=== PATIENT | female | born 1980 | race Caucasian/White ===

== ENCOUNTER 2020-02-20 16:12 | Emergency (ER) | payer OTHER, SELFPAY ==
[2020-02-20 17:40] VITALS: BP 129/72; PULSE 87; RESP 20; O2SAT 99; BMI 34.4
--- NOTE | 2020-02-20 18:05 | ED_ITS ---
HPI - Skin/Abscess/Foreign Bdy General Chief complaint: Skin/Abscess/Foreign Body Stated complaint: CELLULITUS Time Seen by Provider: 02/20/20 16:20 Source: patient Mode of arrival: ambulatory Limitations: no limitations History of Present Illness HPI narrative: states was wearing foot because rash/irritation to the top of the foot now with mild redness. Up-to-date on vaccination. no injury. She is a diabetic and POC was 129 prior to arrival. MD complaint: rash Onset (ago): day(s) (2 days ) Tetanus up to date: yes Location: LUE (dorsal foot ) and L foot Severity: mild Severity scale (1-10): 5 Quality: pruritic Pain Consistency: constant Relieving factors: none Exacerbating factors: none Context: other ( states was wearing shoes that caused irritation to the top of the foot now has redness) Associated symptoms: denies other symptoms Treatments prior to arrival: none Related Data Previous Rx's Medication Instructions Recorded doxycycline monohydrate 100 mg PO BID 10 Days #20 cap 02/20/20 mupirocin 1 applic TOPICAL BID #15 g 02/20/20 Allergies Allergy/AdvReac Type Severity Reaction Status Date / Time amoxicillin [Amoxicillin] Allergy Mild HIVES Unverified 01/15/20 16:27 baclofen [Baclofen] Allergy Unknown UNKNOWN Unverified 01/15/20 16:27 bupropion [From Wellbutrin] Allergy Unknown UNKNOWN Unverified 01/15/20 16:27 diphenhydramine Allergy Unknown UNKNOWN Unverified 01/15/20 16:27 [From Benadryl] divalproex sodium Allergy Unknown UNKNOWN Unverified 01/15/20 16:27 [From Depakote] fluoxetine [From Prozac] Allergy Unknown UNKNOWN Unverified 01/15/20 16:27 Penicillins Allergy Unknown UNKNOWN Unverified 01/15/20 16:27 Review of Systems Review of Systems: Constitutional: No Weight loss, No Fever, No Chills, No Night Sweats, No Fatigue, No Malaise ENT/Mouth: No Hearing loss, No Ear Pain, No Nasal Congestion, No Sinus Pain, No Hoarseness, No sore throat, No Rhinorrhea, No Swallowing Difficulty Eyes: No Eye Pain, No Swelling, No Redness, No Foreign Body, No Discharge, No Vision Changes Cardiovascular: No Chest Pain, No SOB, No Dyspnea on Exertion, No Orthopnea, No Edema, No Palpitations Respiratory: No Cough, No Sputum, No Wheezing, No Dyspnea Gastrointestinal: No Nausea, No Vomitin Genitourinary: no irregular bleeding, No Dysuria, No Urinary Frequency Musculoskeletal: No joint pain, No Myalgias, No Joint Swelling Skin: as noted in HPI Neuro: No Weakness, No Numbness, No Paresthesias, No Loss of Consciousness, No Dizziness, No Headache Psych: No Social Issues Heme/Lymph: No Bruising, No Bleeding,No Lymphadenopathy Endocrine: No Polyuria, No Polydipsia, No Temperature Intolerance Yes all other systems are reviewed and are negative [facility] Past Medical History Attestation statement: The following information was validated with the patient. Medical History (Updated 02/20/20 @ 18:12 by Henri Pulido NP) Diabetes Surgical History (Updated 02/20/20 @ 17:42 by Roseanne Hercules) Status post VNS (vagus nerve stimulator) placement Social History Social History Alcohol intake: never Smoking Status: Current every day smoker Smoked in Last 30 Days: No Use of substances other than those prescribed or required for medical reasons: No Advance Directives: No Advance Directives Information Provided: Yes Physical Exam Vital Signs: Vital Signs: Vital Signs Pulse Resp BP Pulse Ox 02/20/20 17:40 87 20 129/72 99 Body Mass Index 34.4 Reviewed Const: General: cooperative and healthy appearing; No acute distress or intoxicated appearing Nutritional Appearance: average body habitus Orientation/consciousness: patient oriented x3 HENMT: Head: Yes normal to inspection Ears: hearing grossly normal bilaterally Chest: Chest palpation & inspection: normal inspection of the chest Resp: Effort & Inspection: normal respiratory effort Cardio: Jugular venous distension: no JVD : General: Yes no CVA tenderness Back/Spine/Pelvis: Back: no CVA tenderness Skin: Other: Dorsal of the foot just proximal to the webbing of the great toe there is some dry scaly skin with slight erythema extending to the midfoot. No induration, discharge. General skin exam: no rashes or lesions noted Neuro: General: patient oriented x3 Extrem: General: Yes normal to inspection MDM - Skin/Abscess/Foreign Bdy Differential Diagnosis Differential diagnosis: Likely abscess of skin or subcutaneous tissue, viral exanthem, urticaria, eczema, impetigo and contact dermatitis Discharge Plan Discharge Clinical Impression: Cellulitis Qualifiers: Site of cellulitis: unspecified site Qualified Code(s): L03.90 - Cellulitis, unspecified Contact dermatitis Qualifiers: Contact dermatitis type: unspecified Contact dermatitis trigger: unspecified trigger Qualified Code(s): L25.9 - Unspecified contact dermatitis, unspecified cause Patient Disposition: Home, Self-Care Instructions: Cellulitis (ED) Additional Instructions: Warm compress Taking medication prescribed Return if any concerns or worse symptoms otherwise follow up with her primary care doctor on Sunday for recheck Thank you Prescriptions: New doxycycline monohydrate 100 mg capsule 100 mg PO BID 10 Days Qty: 20 RF: 0 mupirocin 2 % ointment 1 applic topical BID Qty: 15 RF: 0 Referrals: ED Physician,Generic [Emergency Provider] - 3 days ( your primary care doctor for recheck or the emergency room)
== END 2020-02-20 19:20 | disposition home or self-care (01) ==
PROVIDERS: Emergency Provider Emergency Medicine
DX: L03.116 Cellulitis of left lower limb (principal); E11.9 Type 2 diabetes mellitus without complications; F17.200 Nicotine dependence, unspecified, uncomplicated
CPT/HCPCS: 99283; 99284

== ENCOUNTER 2021-11-25 21:23 | Inpatient (IN) | payer OTHER, SELFPAY ==
--- NOTE | ~2021-11-25 | XR_ITS ---
EXAMINATION:XR foot RT min 3V, XR ankle RT min 3V VIEWS ACQUIRED: Frontal lateral and oblique CLINICAL INFORMATION: Reason for Exam pt had fall on unit, foot contorted COMPARISON: None available at the time of this dictation. FINDINGS: There is no evidence of acute fracture or dislocation. Intertarsal, tarsometatarsal, metatarsophalangeal and interphalangeal joints are intact. Surrounding soft tissues is normal. , Ankle mortise is preserved. Talar dome and tibial plafonds are intact. Medial and lateral malleoli and included distal tibia and fibula are intact. XR/XR ankle RT min 3V IMPRESSION: No significant osseous changes, no evidence of acute fracture or dislocation.
--- NOTE | ~2021-11-25 | XR_ITS ---
EXAMINATION:XR foot RT min 3V, XR ankle RT min 3V VIEWS ACQUIRED: Frontal lateral and oblique CLINICAL INFORMATION: Reason for Exam pt had fall on unit, foot contorted COMPARISON: None available at the time of this dictation. FINDINGS: There is no evidence of acute fracture or dislocation. Intertarsal, tarsometatarsal, metatarsophalangeal and interphalangeal joints are intact. Surrounding soft tissues is normal. , Ankle mortise is preserved. Talar dome and tibial plafonds are intact. Medial and lateral malleoli and included distal tibia and fibula are intact. XR/XR foot RT min 3V IMPRESSION: No significant osseous changes, no evidence of acute fracture or dislocation.
[2021-11-25 21:39] VITALS: BP 136/71; PULSE 85; RESP 16; TEMP 36.2; O2SAT 97; BMI 31.8
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
[2021-11-25 22:00] LABS: Glucose, Whole Blood 114 mg/dL (60-115)
[2021-11-25 22:20] LABS: COVID-19 Test Negative (Negative); IDNOW Serial# 16C4AD1C
[2021-11-25 22:49] LABS: MANUAL DIFF FLAG NO
[2021-11-25 22:51] LABS: Basophils Percent Auto 0.3 % (0-2); Eosinophils Absolute Auto 0.2 X10*3/uL (0.0-0.4); Eosinophils Percent Auto 2.6 % (0-4); Hematocrit 38.8 % (37.0-47.0); Hemoglobin 12.2 g/dl (12.0-16.0); Imm Gran Abs Auto 0.03 X10*3/uL (0.00-0.03); Imm Gran Pct Auto 0.3 % (0.0-0.4); Lymphocytes Absolute Auto 1.5 X10*3/uL (1.2-4.9); Lymphocytes Percent Auto 16.2 % (20-40); Mean Corpuscular HGB Conc 31.4 g/dl (31.0-35.0); Mean Corpuscular Hemoglobin 25.6 pg (27.0-33.0); Mean Corpuscular Volume 81.3 fL (80.0-98.0); Mean Platelet Volume 11.3 fL (9.4-12.3); Monocytes Absolute Auto 0.7 X10*3/uL (0.1-1.2); Monocytes Percent Auto 7.7 % (2-11); Neutrophils Absolute Auto 6.9 x10*3/uL (2.0-8.3); Neutrophils Percent Auto 72.9 % (45-73); Platelet Count 230 X10*3/uL (160-400); Red Blood Count 4.77 X10*6/uL (4.20-5.50); Red Cell Distribution Width 15.7 % (11.0-16.0); White Blood Count 9.4 X10*3/uL (4.8-10.8)
[2021-11-25 23:42] LABS: Alanine Aminotransferase 17 U/L (0-31); Alkaline Phosphatase 82 U/L (39-117); Anion Gap 15 (12-20); Aspartate Amino Transferase 17 U/L (5-31); Bilirubin Total < 0.2 mg/dL (0.0-1.0); Blood Urea Nitrogen 11 mg/dL (9-16); Calcium 8.5 mg/dL (8.4-10.2); Carbon Dioxide 20 mmol/L (22-29); Chloride 109 mmol/L (96-108); Creatinine Clr Calc Pharmacy 111.9; Estimated Glomerular Filt Rate > 60; Ethanol < 10 mg/dL; Glucose Random 129 mg/dL (60-115); Potassium 3.9 mmol/L (3.3-5.1); Sodium 140 mmol/L (135-145); Total Protein 6.2 g/dL (6.5-8.0)
[2021-11-26 06:40] VITALS: RESP 17
--- NOTE | 2021-11-26 06:42 | PC.NURSE ---
Patient told this technical document writer that she do not have to used the bathroom to provide a urine sample and Patient refused Vitals at this time RN was notify
--- NOTE | 2021-11-26 06:46 | PC.NURSE ---
Patient slept though the night, no distress observed/reported, med rec completed/pending provider's approval, patient evaluated by [facility] in the community, disposition section 12 inpatient bed search, behavior isolative/non concerning, pending urine sample, will continue to monitor.
--- NOTE | 2021-11-26 07:03 | PC.NURSE ---
patient appears to remain asleep respirations are even and unlabored patient appears in no distress
[2021-11-26 10:19] LABS: Appearance Urine HAZY; Color Urine YELLOW; Glucose Urine UA NEG (NEG); Leukocyte Esterase Urine NEG (NEG); Nitrite Urine NEG (NEG); PH 6.5 (5.0-8.0); Specific Gravity - Urine 1.025 (1.005-1.025); Urine Blood 1+ (NEG); Urine Ketones NEG (NEG); Urine Protein NEG (NEG-TRACE)
[2021-11-26 10:22] LABS: UPreg QC Valid YES; Urine Pregnancy NEGATIVE (NEGATIVE)
[2021-11-26 10:34] LABS: Bacteria Urine 1+ /LPF; Mucus Urine 2+ /LPF; Squamous Epithelial Cell Urine 1+ /LPF; WBC Urine 0-2 /HPF (0-4)
[2021-11-26 10:37] LABS: Amphetamine Screen Urine Not Detected (Not Detect); Barbiturates, Urine Not Detected (Not Detect); Benzodiazepines Screen Urine Not Detected (Not Detect); Cannabinoid Screen Urine Not Detected (Not Detect); Cocaine Screen Urine Not Detected (Not Detect); Fentanyl, urine Not Detected (Not Detect); Opiate Screen Urine Not Detected (Not Detect); Phencyclidine Screen Urine Not Detected (Not Detect)
[2021-11-26 13:39] VITALS: BP 116/57; PULSE 90; RESP 16; TEMP 37.1
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
[2021-11-26 21:34] VITALS: BP 112/60; PULSE 72; TEMP 36.7; O2SAT 97
[2021-11-27 08:39] LABS: Estimated Average Glucose 140 mg/dL; Hemoglobin A1c % 6.5 %
[2021-11-27 08:45] VITALS: BP 130/70; PULSE 78; RESP 18; TEMP 36.4; O2SAT 99
[2021-11-27 08:47] LABS: Cholesterol 126 mg/dL; HDL Cholesterol 33 mg/dL; LDL Cholesterol Calculated 75 mg/dl; Magnesium 2.2 mg/dL (1.6-2.6); Triglycerides 91 mg/dL
[2021-11-27] MEDS: Methylphenidate HCl 10 MG TABLET PO ×2 (08:49→12:58)
[2021-11-27] MEDS: Multivitamin TABLET 1 TAB PO (08:49)
[2021-11-27] MEDS: Sertraline HCL 100 MG TABLET PO (08:50)
[2021-11-27] MEDS: Atorvastatin Calcium 40 MG TABLET PO (08:50)
[2021-11-27] MEDS: chlorproMAZINE HCl 100 MG TABLET PO ×2 (08:50→15:23)
[2021-11-27] MEDS: Aspirin Enteric Coated 81 MG TABLET.DR PO (08:50)
[2021-11-27] MEDS: busPIRone HCl 5 MG TABLET 7.5 MG PO ×2 (08:50→21:03)
[2021-11-27] MEDS: Omeprazole 20 MG CAPSULE.DR PO (08:50)
[2021-11-27] MEDS: metFORMIN HCl 1,000 MG TABLET 1000 MG PO ×2 (08:50→21:02)
[2021-11-27] MEDS: Ferrous Sulfate 324 MG TABLET.DR PO (08:51)
[2021-11-27 09:08] LABS: Free T4 (Free Thyroxine) 0.91 ng/dL (0.71-1.85); Thyroid Stimulating Hormone 0.43 uIU/mL (0.32-4.0)
--- NOTE | 2021-11-27 12:34 | P.PNPSI_ITS ---
Subjective Subjective Date of Service: 11/27/21 Reason For Visit: Depression, SI Subjective Notes: Conditional Voluntary Interim History: The nursing staff reported the patient refused to take her medications last night but later on she agreed to take her medications in the morning. On interview the patient stated that she wants to take her meds and get better still very dysphoric, internally preoccupied with auditory hallucinations but able to contract for safety in the unit. Mental Status Exam Mental Status Exam Patient Appearance: Well Grooomed Patient Orientation: Person and Situation Level of Consciousness: Awake and Appropriate Patient Behavior: Cooperative Mood Description: Withdrawn Affect Description: Constricted Patient Cognition Impaired: Yes Ability to Follow Directions: Good Speech Pattern: Clear Hallucinations: Auditory Delusions: Paranoid Ideation Thought Process: Distracted and Slowed Thinking Thought Content: positive for Disoriented Judgement: Poor Diagnostics Vital Signs (24Hr): Vital Signs - 24 hr 11/26/21 13:39 11/26/21 21:34 11/27/21 08:45 Temperature 98.8 F 98.1 F 97.6 F Pulse Rate 90 72 78 Respiratory Rate 16 18 Blood Pressure 116/57 L 112/60 130/70 Pulse Oximetry 97 99 Oxygen Delivery Method Room Air Room Air Room Air Oxygen Flow Rate 97 BMI result Body Mass Index 31.8 Labs Results: 11/25/21 22:44 11/25/21 22:44 Labs: Laboratory Results - last 48 hr 11/25/21 11/25/21 11/25/21 21:42 21:57 22:44 WBC 9.4 RBC 4.77 Hgb 12.2 Hct 38.8 MCV 81.3 MCH 25.6 L MCHC 31.4 RDW 15.7 Plt Count 230 MPV 11.3 Immature Gran % (Auto) 0.3 Neut % (Auto) 72.9 Lymph % (Auto) 16.2 L Edmunds % (Auto) 7.7 Eos % (Auto) 2.6 Baso % (Auto) 0.3 Lymph # (Auto) 1.5 Edmunds # (Auto) 0.7 Eos # (Auto) 0.2 Baso # (Auto) 0.0 Abs Immat Gran (auto) 0.03 Absolute Neuts (auto) 6.9 Absolute Nucleated RBC 0.000 Nucleated RBC % (auto) 0.0 Sodium Potassium Chloride Carbon Dioxide Anion Gap BUN Creatinine Estim Creat Clear Calc Estimated GFR POC Glucose 114 Random Glucose Estimat Average Glucose Hemoglobin A1c % Calcium Magnesium Total Bilirubin AST ALT Alkaline Phosphatase Total Protein Albumin Triglycerides Cholesterol LDL Cholesterol, Calc HDL Cholesterol TSH Free T4 Urine Color Urine Appearance Urine pH Ur Specific Aulander Urine Protein Urine Glucose (UA) Urine Ketones Urine Blood Urine Nitrite Ur Leukocyte Esterase Urine RBC Urine WBC Ur Squamous Epith Cells Urine Bacteria Urine Mucus Urine Test Urine Opiates Screen Urine Fentanyl Screen Ur Barbiturates Screen Ur Phencyclidine Scrn Ur Amphetamines Screen U Benzodiazepines Scrn Urine Cocaine Screen U Marijuana (THC) Screen Ethyl Alcohol COVID-19 (NATE) Negative COVID-19 Clin Com See Note 11/25/21 11/26/21 11/26/21 22:44 10:11 10:11 WBC RBC Hgb Hct MCV MCH MCHC RDW Plt Count MPV Immature Gran % (Auto) Neut % (Auto) Lymph % (Auto) Edmunds % (Auto) Eos % (Auto) Baso % (Auto) Lymph # (Auto) Edmunds # (Auto) Eos # (Auto) Baso # (Auto) Abs Immat Gran (auto) Absolute Neuts (auto) Absolute Nucleated RBC Nucleated RBC % (auto) Sodium 140 Potassium 3.9 Chloride 109 H Carbon Dioxide 20 L Anion Gap 15 BUN 11 Creatinine 0.65 Estim Creat Clear Calc 111.9 Estimated GFR > 60 POC Glucose Random Glucose 129 H Estimat Average Glucose Hemoglobin A1c % Calcium 8.5 Magnesium Total Bilirubin < 0.2 AST 17 ALT 17 Alkaline Phosphatase 82 Total Protein 6.2 L Albumin 4.0 Triglycerides Cholesterol LDL Cholesterol, Calc HDL Cholesterol TSH Free T4 Urine Color YELLOW Urine Appearance HAZY Urine pH 6.5 Ur Specific Aulander 1.025 Urine Protein NEG Urine Glucose (UA) NEG Urine Ketones NEG Urine Blood 1+ H Urine Nitrite NEG Ur Leukocyte Esterase NEG Urine RBC 1-4 Urine WBC 0-2 Ur Squamous Epith Cells 1+ Urine Bacteria 1+ Urine Mucus 2+ Urine Test Urine Opiates Screen Not Detected Urine Fentanyl Screen Not Detected Ur Barbiturates Screen Not Detected Ur Phencyclidine Scrn Not Detected Ur Amphetamines Screen Not Detected U Benzodiazepines Scrn Not Detected Urine Cocaine Screen Not Detected U Marijuana (THC) Screen Not Detected Ethyl Alcohol < 10 COVID-19 (NATE) COVID-19 Clin Com 11/26/21 11/27/21 11/27/21 10:11 08:04 08:04 WBC RBC Hgb Hct MCV MCH MCHC RDW Plt Count MPV Immature Gran % (Auto) Neut % (Auto) Lymph % (Auto) Edmunds % (Auto) Eos % (Auto) Baso % (Auto) Lymph # (Auto) Edmunds # (Auto) Eos # (Auto) Baso # (Auto) Abs Immat Gran (auto) Absolute Neuts (auto) Absolute Nucleated RBC Nucleated RBC % (auto) Sodium Potassium Chloride Carbon Dioxide Anion Gap BUN Creatinine Estim Creat Clear Calc Estimated GFR POC Glucose Random Glucose Estimat Average Glucose 140 Hemoglobin A1c % 6.5 Calcium Magnesium 2.2 Total Bilirubin AST ALT Alkaline Phosphatase Total Protein Albumin Triglycerides 91 Cholesterol 126 LDL Cholesterol, Calc 75 HDL Cholesterol 33 TSH 0.43 Free T4 0.91 Urine Color Urine Appearance Urine pH Ur Specific Aulander Urine Protein Urine Glucose (UA) Urine Ketones Urine Blood Urine Nitrite Ur Leukocyte Esterase Urine RBC Urine WBC Ur Squamous Epith Cells Urine Bacteria Urine Mucus Urine Test NEGATIVE Urine Opiates Screen Urine Fentanyl Screen Ur Barbiturates Screen Ur Phencyclidine Scrn Ur Amphetamines Screen U Benzodiazepines Scrn Urine Cocaine Screen U Marijuana (THC) Screen Ethyl Alcohol COVID-19 (NATE) COVID-19 Clin Com Medications Medications Current Medications Acetaminophen (Acetaminophen 325 Mg Tablet) 650 mg PO Q6H PRN PRN Reason: Headache/Pain Mild Scale (1-3) Al Hydroxide/Mg Hydroxide (Magnesium Hydrox/Alum Hydrox 30 Ml Oral.Susp) 30 ml PO Q6H PRN PRN Reason: Heartburn/Nausea Aspirin (Aspirin Enteric Coated 81 Mg Tablet.Dr) 81 mg PO DAILY [facility] Last Admin: 11/27/21 08:50 Dose: 81 mg Atorvastatin Calcium (Atorvastatin Calcium 40 Mg Tablet) 40 mg PO DAILY [facility] Last Admin: 11/27/21 08:50 Dose: 40 mg Buspirone HCl (Buspirone Hcl 5 Mg Tablet) 7.5 mg PO BID [facility] Last Admin: 11/27/21 08:50 Dose: 7.5 mg Cariprazine (Cariprazine Hcl 1.5 Mg Capsule) 4.5 mg PO BEDTIME [facility] Last Admin: 11/26/21 22:10 Dose: Not Given Chlorpromazine HCl (Chlorpromazine Hcl 100 Mg Tablet) 100 mg PO BID@0800,1600 [facility] Last Admin: 11/27/21 08:50 Dose: 100 mg Chlorpromazine HCl (Chlorpromazine Hcl 100 Mg Tablet) 200 mg PO BEDTIME [facility] Last Admin: 11/26/21 22:10 Dose: Not Given Ferrous Sulfate (Ferrous Sulfate 324 Mg Tablet.Dr) 324 mg PO DAILY [facility] Last Admin: 11/27/21 08:51 Dose: 324 mg Hydroxyzine HCl (Hydroxyzine Hcl 25 Mg Tablet) 25 mg PO Q6H PRN PRN Reason: Anxiety Magnesium Hydroxide (Milk Of Magnesia 30 Ml Oral.Susp) 30 ml PO DAILY PRN PRN Reason: Constipation Metformin HCl (Metformin Hcl 1,000 Mg Tablet) 1,000 mg PO BID [facility] Last Admin: 11/27/21 08:50 Dose: 1,000 mg Methylphenidate HCl (Methylphenidate Hcl 10 Mg Tablet) 10 mg PO DAILY@0800,1300 [facility] Last Admin: 11/27/21 08:49 Dose: 10 mg Multivitamins/Vitamin C (Multivitamin Tablet) 1 tab PO DAILY [facility] Last Admin: 11/27/21 08:49 Dose: 1 tab Omeprazole (Omeprazole 20 Mg Capsule.Dr) 20 mg PO DAILY@0630 [facility] Last Admin: 11/27/21 08:50 Dose: 20 mg Senna (Sennosides 8.6 Mg Tablet) 8.6 mg PO DAILY PRN PRN Reason: Constipation Sertraline HCl (Sertraline Hcl 100 Mg Tablet) 100 mg PO DAILY [facility] Last Admin: 11/27/21 08:50 Dose: 100 mg Trazodone HCl (Trazodone Hcl 50 Mg Tablet) 50 mg PO BEDTIME PRN PRN Reason: Insomnia Allergies Allergies Allergy/AdvReac Type Severity Reaction Status Date / Time amoxicillin [Amoxicillin] Allergy Mild HIVES Unverified 01/15/20 16:27 baclofen [Baclofen] Allergy Unknown UNKNOWN Unverified 01/15/20 16:27 bupropion [From Wellbutrin] Allergy Unknown UNKNOWN Unverified 01/15/20 16:27 diphenhydramine Allergy Unknown UNKNOWN Unverified 01/15/20 16:27 [From Benadryl] divalproex sodium Allergy Unknown UNKNOWN Unverified 01/15/20 16:27 [From Depakote] fluoxetine [From Prozac] Allergy Unknown UNKNOWN Unverified 01/15/20 16:27 Penicillins Allergy Unknown UNKNOWN Unverified 01/15/20 16:27 Assessment & Plan Assessment & Plan (1) Borderline personality disorder: Status: Acute Code(s): F60.3 - Borderline personality disorder (2) Schizoaffective disorder: Status: Acute Code(s): F25.9 - Schizoaffective disorder, unspecified (3) Development disorder, mixed: Status: Acute Code(s): F88 - Other disorders of psychological development Plan Adult female, chronically mentally ill, with several prior admissions and institutionalized since a child, admitted for an exacerbation of psychosis, depression and suicidal ideation in the context of non-compliance. Plan 1. Gather collateral information. 2. Continue psychotropics. 3, Medical workout. I spent ___20___ minutes with the patient and/or on the patient floor today, greater than?50% of which was spent counseling/coordinating care. Reason for contiued inpatient stay Substantial Risk for: harm to self, inability to function, rapid decompensation and med/psych decompensation
[2021-11-27 21:00] VITALS: BP 114/54; PULSE 85; RESP 18; TEMP 36.7; O2SAT 99
[2021-11-27] MEDS: chlorproMAZINE HCl 100 MG TABLET 200 MG PO (21:03)
[2021-11-27] MEDS: Cariprazine HCl 1.5 MG CAPSULE 4.5 MG PO (21:03)
[2021-11-28 07:34] LABS: Folate 15.3 ng/mL (> or = 4.0); Vitamin B12 340 pg/mL (200-900)
[2021-11-28 08:15] VITALS: BP 111/65; PULSE 81; RESP 18; TEMP 36.7; O2SAT 99
[2021-11-28 08:16] LABS: Glucose, Whole Blood 184 mg/dL (60-115)
[2021-11-28] MEDS: Omeprazole 20 MG CAPSULE.DR PO (08:16)
[2021-11-28] MEDS: metFORMIN HCl 1,000 MG TABLET 1000 MG PO ×2 (08:16→22:10)
[2021-11-28] MEDS: Multivitamin TABLET 1 TAB PO (08:16)
[2021-11-28] MEDS: Sertraline HCL 100 MG TABLET PO (08:17)
[2021-11-28] MEDS: chlorproMAZINE HCl 100 MG TABLET PO ×2 (08:17→15:45)
[2021-11-28] MEDS: Ferrous Sulfate 324 MG TABLET.DR PO (08:17)
[2021-11-28] MEDS: Atorvastatin Calcium 40 MG TABLET PO (08:17)
[2021-11-28] MEDS: busPIRone HCl 5 MG TABLET 7.5 MG PO ×2 (08:17→22:10)
[2021-11-28] MEDS: Aspirin Enteric Coated 81 MG TABLET.DR PO (08:17)
[2021-11-28] MEDS: Methylphenidate HCl 10 MG TABLET PO ×2 (09:05→12:52)
[2021-11-28] MEDS: Acetaminophen 325 MG TABLET 650 MG PO ×2 (10:09→19:03)
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
[2021-11-28 17:55] VITALS: BP 114/71; PULSE 109; RESP 20; O2SAT 96
[2021-11-28] MEDS: hydrOXYzine HCL 25 MG TABLET PO (18:01)
--- NOTE | 2021-11-28 18:03 | PC.NURSE ---
Addendum entered by Yandy Hays 11/28/21 18:27: [employer] notified of fall. Original Note: At 1715 patient reported numbness and pain in right leg. Patient was sitting cross legged in chair. When asked to change her position and attempt to stand patient became visibly agitated, and began to hop on one leg out of the room. While patient was hopping on one leg she fell. Fall was witnessed by staff, patient did not strike her head. . Patient easily stood up, and hopped to room. Patient was able to set foot down on floor. On arrival to room, patient declined vitals, and was evaluated by provider. No swelling, no bruising noted, foot was turned inward and patient stated she was unable to relax it. Pedal pulses palpated by provider. Shortly after patient ambulated to dining area. She denied any further numbness, reported ongoing soreness in leg. Patient taken by staff to xray.
--- NOTE | 2021-11-28 18:48 | PC.NURSE ---
Late entry: reviewed incident w/ patient- patient admits she became angry w/ RN when asked to stand, stated 'I felt like I was being seen as a hypocrite. Assured patient that this was part of an assessment. Patient states she understood, requested medication for anxiety.
[2021-11-28] MEDS: chlorproMAZINE HCl 100 MG TABLET 200 MG PO (22:10)
[2021-11-28] MEDS: Cariprazine HCl 1.5 MG CAPSULE 4.5 MG PO (22:10)
[2021-11-29] MEDS: Acetaminophen 325 MG TABLET 650 MG PO (08:18)
[2021-11-29] MEDS: busPIRone HCl 5 MG TABLET 7.5 MG PO (08:19)
[2021-11-29] MEDS: Multivitamin TABLET 1 TAB PO (08:20)
[2021-11-29] MEDS: chlorproMAZINE HCl 100 MG TABLET PO (08:20)
[2021-11-29] MEDS: metFORMIN HCl 1,000 MG TABLET 1000 MG PO (08:20)
[2021-11-29] MEDS: Sertraline HCL 50 MG TABLET 150 MG PO (08:21)
[2021-11-29] MEDS: Aspirin Enteric Coated 81 MG TABLET.DR PO (08:21)
[2021-11-29] MEDS: Ferrous Sulfate 324 MG TABLET.DR PO (08:22)
[2021-11-29] MEDS: Omeprazole 20 MG CAPSULE.DR PO (08:22)
[2021-11-29] MEDS: Atorvastatin Calcium 40 MG TABLET PO (08:22)
[2021-11-29 08:23] LABS: Glucose, Whole Blood 265 mg/dL (60-115)
[2021-11-29] MEDS: Methylphenidate HCl 10 MG TABLET PO ×2 (08:45→12:35)
[2021-11-29 09:38] VITALS: BP 122/68; PULSE 90; RESP 20; TEMP 36.7; O2SAT 99
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
--- NOTE | 2021-11-29 11:25 | PC.NURSE ---
Patient alert, oriented x3. Denies SI/HI, denies AH/VH. Patient reports she feels ready for discharge, which is anticipated to be at 1400 today. Reviewed belongings, discharge instructions with patient- patient verbalized understanding, no concerns reported.
--- NOTE | 2021-11-29 14:30 | PC.NURSE ---
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 Patioent alert, oriented x3, no concerns reported.
== END 2021-11-29 14:31 | disposition home or self-care (01) | DRG 885 ==
LOC: HO.ED 22:18 → HO.PADLT16 11-26 13:09
PROVIDERS: Registered Nurse; Admitting Provider Psychiatry & Neurology Psychiatry; Emergency Provider Emergency Medicine; Visit Provider Psychiatry & Neurology Psychiatry
DX: F25.9 Schizoaffective disorder, unspecified (principal); R45.851 Suicidal ideations; F60.3 Borderline personality disorder; Z20.822 Contact with and (suspected) exposure to COVID-19; Z96.82 Presence of neurostimulator; F88 Other disorders of psychological development; F17.210 Nicotine dependence, cigarettes, uncomplicated; Z87.820 Personal history of traumatic brain injury; Z71.6 Tobacco abuse counseling; Z88.0 Allergy status to penicillin; Z88.8 Allergy status to other drugs, medicaments and biological substances; Z79.82 Long term (current) use of aspirin; Z79.84 Long term (current) use of oral hypoglycemic drugs; Z79.899 Other long term (current) drug therapy
CPT/HCPCS: 36415; 73610; 73630; 80053; 80061; 80307; 81001; 81025; 82077; 82607; 82746; 82947; 83036; 83735; 84439; 84443; 85025; 87635; 99285

== ENCOUNTER 2022-04-24 08:51 | Inpatient (IN) | payer OTHER, SELFPAY ==
--- NOTE | ~2022-04-24 | XR_ITS ---
EXAMINATION: XR ANKLE, LEFT CLINICAL INFORMATION: Fall with pain. COMPARISON: Radiographs of the right ankle dated from 11/28/2021. TECHNIQUE: AP, lateral, and mortise views of the left ankle. FINDINGS: No acute fractures or malalignment. Small enthesophytes along the dorsal surface of the talus and navicular bone. Small enthesophytes on the distal tibia and fibula. Mild spurring of the calcaneus. Diffuse nonspecific soft tissue swelling. No unexpected radiopaque foreign bodies. XR/XR ankle LT 2V IMPRESSION: 1. No acute fractures or malalignment. 2. Mild degenerative osteoarthritis. 3. Nonspecific soft tissue swelling.
--- NOTE | ~2022-04-24 | CT_ITS ---
EXAMINATION: CT HEAD WITHOUT CONTRAST CLINICAL INFORMATION: Fall. COMPARISON: CT head 12/27/2019. TECHNIQUE: Contiguous axial imaging was performed from the skull base to vertex without intravenous administration of contrast. This CT examination was performed using dose optimization techniques as appropriate, variously including the following: *Automated exposure control *Adjustment of mA and/or kV according to patient size (this includes techniques or standardized protocols for targeted exams where dose is matched to indication/reason for exam; i.e. extremities or head) *Use of iterative reconstruction technique DLP: 722 mGy-cm FINDINGS: A left frontal approach neurostimulator device terminates in similar positioning to prior at the level of the left basal ganglia. Stable small hypodensity, possibly encephalomalacia/gliosis in the medial left occipital lobe (2:48). There is no evidence of acute intracranial hemorrhage or edematous territorial infarction. A few foci of hypoattenuation in the periventricular and deep white matter are consistent with mild microangiopathy. [place]-white matter differentiation is preserved. Proportional prominence of the ventricles and sulcal spaces. No evidence for obstructive hydrocephalus. No abnormal mass effect or midline shift. No extra-axial fluid collections. No acute soft tissue or osseous abnormalities. The mastoid air cells and paranasal sinuses are clear. CT/CT head/brain wo IV con IMPRESSION: Unchanged positioning of a left frontal approach neurostimulator device. No acute intracranial abnormality. Background of mild chronic microangiopathy and generalized cerebral volume loss.
[2022-04-24 09:00] VITALS: BP 133/83; PULSE 112; RESP 17; TEMP 37.1; O2SAT 97; BMI 32.9
--- NOTE | 2022-04-24 10:16 | ED_ITS ---
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 (1.2-4.9) X10*3/uL [place] # (Auto) (0.1-1.2) X10*3/uL Eos # (Auto) (0.0-0.4) X10*3/uL Baso # (Auto) (0.0-0.2) X10*3/uL Abs Immat Gran (auto) (0.00-0.03) X10*3/uL Absolute Neuts (auto) (2.0-8.3) x10*3/uL Absolute Nucleated RBC (0.0-0.012) X10*3/uL Nucleated RBC % (auto) (0.0-0.2) /100WBC Sodium (135-145) mmol/L Potassium (3.3-5.1) mmol/L Chloride (96-108) mmol/L Carbon Dioxide (22-29) mmol/L Anion Gap (12-20) BUN (9-16) mg/dL Creatinine (0.5-1.4) mg/dL Estim Creat Clear Calc Estimated GFR Random Glucose (60-115) mg/dL Calcium (8.4-10.2) mg/dL Total Bilirubin (0.0-1.0) mg/dL AST (5-31) U/L ALT (0-31) U/L Alkaline Phosphatase (39-117) U/L Total Protein (6.5-8.0) g/dL Albumin (3.5-5.0) g/dL Urine Color Yellow Urine Appearance Turbid Urine pH 7.0 (5.0-9.0) Ur Specific [place] 1.025 (1.005-1.025) Urine Protein Trace (Neg-Trace) mg/dL Urine Glucose (UA) 250 H (Negative) mg/dL Urine Ketones Trace (Negative) mg/dL Urine Blood Large (3+) H (Negative) Urine Nitrite Negative (Negative) Ur Leukocyte Esterase Trace H (Negative) Urine RBC >20 H (0-2) /HPF Urine WBC 11-20 H (0-5) /HPF Ur Squamous Epith Cells 6-10 (0-2) /HPF Urine Bacteria 4+ (None Seen) Hyaline Casts 0-2 (0-2) /LPF Urine Test NEGATIVE (NEGATIVE) Urine Opiates Screen Not Detected (Not Detect) Urine Fentanyl Screen Not Detected (Not Detect) Ur Barbiturates Screen Not Detected (Not Detect) Ur Phencyclidine Scrn Not Detected (Not Detect) Ur Amphetamines Screen Not Detected (Not Detect) U Benzodiazepines Scrn Not Detected (Not Detect) Urine Cocaine Screen Not Detected (Not Detect) U Marijuana (THC) Screen Not Detected (Not Detect) Ethyl Alcohol mg/dL COVID-19 (NATE) (Negative) COVID-19 Clin Com <Sun Borden MD - Last Filed: 04/25/22 07:01> Lab Results 04/24/22 04/24/22 04/24/22 Range/Units 10:53 10:53 10:53 WBC 10.5 (4.8-10.8) X10*3/uL RBC 4.78 (4.20-5.50) X10*6/uL Hgb 13.1 (12.0-16.0) g/dl Hct 40.5 (37.0-47.0) % MCV 84.7 (80.0-98.0) fL MCH 27.4 (27.0-33.0) pg MCHC 32.3 (31.0-35.0) g/dl RDW 15.6 (11.0-16.0) % Plt Count 262 (160-400) X10*3/uL MPV 10.9 (9.4-12.3) fL Immature Gran % (Auto) 0.6 H (0.0-0.4) % Neut % (Auto) 70.7 (45-73) % Lymph % (Auto) 18.2 L (20-40) % [place] % (Auto) 8.6 (2-11) % Eos % (Auto) 1.4 (0-4) % Baso % (Auto) 0.5 (0-2) % Lymph # (Auto) 1.9 (1.2-4.9) X10*3/uL [place] # (Auto) 0.9 (0.1-1.2) X10*3/uL Eos # (Auto) 0.2 (0.0-0.4) X10*3/uL Baso # (Auto) 0.1 (0.0-0.2) X10*3/uL Abs Immat Gran (auto) 0.06 H (0.00-0.03) X10*3/uL Absolute Neuts (auto) 7.5 (2.0-8.3) x10*3/uL Absolute Nucleated RBC 0.000 (0.0-0.012) X10*3/uL Nucleated RBC % (auto) 0.0 (0.0-0.2) /100WBC Sodium 141 (135-145) mmol/L Potassium 4.1 (3.3-5.1) mmol/L Chloride 107 (96-108) mmol/L Carbon Dioxide 27 (22-29) mmol/L Anion Gap 11 L (12-20) BUN 7 L (9-16) mg/dL Creatinine 0.69 (0.5-1.4) mg/dL Estim Creat Clear Calc 106.2 Estimated GFR > 60 Random Glucose 144 H (60-115) mg/dL Calcium 8.7 (8.4-10.2) mg/dL Total Bilirubin 0.2 (0.0-1.0) mg/dL AST 17 (5-31) U/L ALT 18 (0-31) U/L Alkaline Phosphatase 128 H (39-117) U/L Total Protein 6.4 L (6.5-8.0) g/dL Albumin 4.3 (3.5-5.0) g/dL Urine Color Urine Appearance Urine pH (5.0-9.0) Ur Specific [place] (1.005-1.025) Urine Protein (Neg-Trace) mg/dL Urine Glucose (UA) (Negative) mg/dL Urine Ketones (Negative) mg/dL Urine Blood (Negative) Urine Nitrite (Negative) Ur Leukocyte Esterase (Negative) Urine RBC (0-2) /HPF Urine WBC (0-5) /HPF Ur Squamous Epith Cells (0-2) /HPF Urine Bacteria (None Seen) Hyaline Casts (0-2) /LPF Urine Test (NEGATIVE) Urine Opiates Screen (Not Detect) Urine Fentanyl Screen (Not Detect) Ur Barbiturates Screen (Not Detect) Ur Phencyclidine Scrn (Not Detect) Ur Amphetamines Screen (Not Detect) U Benzodiazepines Scrn (Not Detect) Urine Cocaine Screen (Not Detect) U Marijuana (THC) Screen (Not Detect) Ethyl Alcohol < 10 mg/dL COVID-19 (NATE) Negative (Negative) COVID-19 Clin Com See Note 04/25/22 04/25/22 04/25/22 Range/Units 15:56 15:56 15:56 WBC (4.8-10.8) X10*3/uL RBC (4.20-5.50) X10*6/uL Hgb (12.0-16.0) g/dl Hct (37.0-47.0) % MCV (80.0-98.0) fL MCH (27.0-33.0) pg MCHC (31.0-35.0) g/dl RDW (11.0-16.0) % Plt Count (160-400) X10*3/uL MPV (9.4-12.3) fL Immature Gran % (Auto) (0.0-0.4) % Neut % (Auto) (45-73) % Lymph % (Auto) (20-40) % [place] % (Auto) (2-11) % Eos % (Auto) (0-4) % Baso % (Auto) (0-2) % Lymph # (Auto) (1.2-4.9) X10*3/uL [place] # (Auto) (0.1-1.2) X10*3/uL Eos # (Auto) (0.0-0.4) X10*3/uL Baso # (Auto) (0.0-0.2) X10*3/uL Abs Immat Gran (auto) (0.00-0.03) X10*3/uL Absolute Neuts (auto) (2.0-8.3) x10*3/uL Absolute Nucleated RBC (0.0-0.012) X10*3/uL Nucleated RBC % (auto) (0.0-0.2) /100WBC Sodium (135-145) mmol/L Potassium (3.3-5.1) mmol/L Chloride (96-108) mmol/L Carbon Dioxide (22-29) mmol/L Anion Gap (12-20) BUN (9-16) mg/dL Creatinine (0.5-1.4) mg/dL Estim Creat Clear Calc Estimated GFR Random Glucose (60-115) mg/dL Calcium (8.4-10.2) mg/dL Total Bilirubin (0.0-1.0) mg/dL AST (5-31) U/L ALT (0-31) U/L Alkaline Phosphatase (39-117) U/L Total Protein (6.5-8.0) g/dL Albumin (3.5-5.0) g/dL Urine Color Yellow Urine Appearance Turbid Urine pH 7.0 (5.0-9.0) Ur Specific [place] 1.025 (1.005-1.025) Urine Protein Trace (Neg-Trace) mg/dL Urine Glucose (UA) 250 H (Negative) mg/dL Urine Ketones Trace (Negative) mg/dL Urine Blood Large (3+) H (Negative) Urine Nitrite Negative (Negative) Ur Leukocyte Esterase Trace H (Negative) Urine RBC >20 H (0-2) /HPF Urine WBC 11-20 H (0-5) /HPF Ur Squamous Epith Cells 6-10 (0-2) /HPF Urine Bacteria 4+ (None Seen) Hyaline Casts 0-2 (0-2) /LPF Urine Test NEGATIVE (NEGATIVE) Urine Opiates Screen Not Detected (Not Detect) Urine Fentanyl Screen Not Detected (Not Detect) Ur Barbiturates Screen Not Detected (Not Detect) Ur Phencyclidine Scrn Not Detected (Not Detect) Ur Amphetamines Screen Not Detected (Not Detect) U Benzodiazepines Scrn Not Detected (Not Detect) Urine Cocaine Screen Not Detected (Not Detect) U Marijuana (THC) Screen Not Detected (Not Detect) Ethyl Alcohol mg/dL COVID-19 (NATE) (Negative) COVID-19 Clin Com <Tri Miller NP - Last Filed: 04/25/22 16:33> Independent Historian Clinical information obtained from an independent historian. History obtained from or confirmed by: Other (building maintenance worker; Shelly, as noted in HPI) <Chelsi Sanchez CNP - Last Filed: 04/24/22 18:07> Discharge Plan Discharge Clinical Impression: Chronic posttraumatic stress disorder <Chelsi Sanchez CNP - Last Filed: 04/24/22 18:07> Patient Disposition: Still a Patient <Chelsi Sanchez CNP - Last Filed: 04/24/22 18:07> Instructions: Post Traumatic Stress Disorder (ED) <Chelsi Sanchez CNP - Last Filed: 04/24/22 18:07> Additional Instructions: Continue your medications And follow-up with therapist as outpatient <Chelsi Sanchez CNP - Last Filed: 04/24/22 18:07> Prescriptions: No Action multivitamin Tablet 1 tab PO DAILY sennosides [senna] 8.6 mg tablet 1 tab PO DAILY PRN (Reason: Constipation) methylphenidate HCl 10 mg tablet 1 tab PO DAILY@0800,1300 chlorpromazine 100 mg tablet 100 mg PO BID@0800,1600 ferrous sulfate 325 mg (65 mg iron) tablet 1 tab PO DAILY metformin 1,000 mg tablet 1 tab PO BID buspirone 7.5 mg tablet 1 tab PO BID chlorpromazine 100 mg tablet 200 mg PO BEDTIME aspirin 81 mg tablet,delayed release (DR/EC) 1 tab PO DAILY Vraylar 4.5 mg capsule 1 cap PO BEDTIME hydroxyzine HCl 25 mg Tablet 25 mg PO DAILY PRN (Reason: Anxiety) 30 Days Qty: 30 0RF prazosin 1 mg capsule 4 cap PO BEDTIME pantoprazole 40 mg tablet,delayed release (DR/EC) 1 tab PO BEDTIME atorvastatin 40 mg tablet 1 tab PO DAILY fluticasone propionate 50 mcg/actuation spray,suspension 1 - 2 spray intranasal DAILY PRN (Reason: Dyspnea) sertraline 50 mg tablet 3 tab PO DAILY Vraylar 4.5 mg capsule 1 cap PO BEDTIME <Chelsi Sanchez CNP - Last Filed: 04/24/22 18:07> Interventions: [place]-Suicide Risk Severity Scale Last Done: 04/25/22 13:59 <Chelsi Sanchez CNP - Last Filed: 04/24/22 18:07>
[2022-04-24 11:03] LABS: MANUAL DIFF FLAG NO
[2022-04-24 11:05] LABS: Basophils Absolute Auto 0.1 X10*3/uL (0.0-0.2); Basophils Percent Auto 0.5 % (0-2); Eosinophils Absolute Auto 0.2 X10*3/uL (0.0-0.4); Eosinophils Percent Auto 1.4 % (0-4); Hematocrit 40.5 % (37.0-47.0); Hemoglobin 13.1 g/dl (12.0-16.0); Imm Gran Abs Auto 0.06 X10*3/uL (0.00-0.03); Imm Gran Pct Auto 0.6 % (0.0-0.4); Lymphocytes Absolute Auto 1.9 X10*3/uL (1.2-4.9); Lymphocytes Percent Auto 18.2 % (20-40); Mean Corpuscular HGB Conc 32.3 g/dl (31.0-35.0); Mean Corpuscular Hemoglobin 27.4 pg (27.0-33.0); Mean Corpuscular Volume 84.7 fL (80.0-98.0); Mean Platelet Volume 10.9 fL (9.4-12.3); Monocytes Absolute Auto 0.9 X10*3/uL (0.1-1.2); Monocytes Percent Auto 8.6 % (2-11); Neutrophils Absolute Auto 7.5 x10*3/uL (2.0-8.3); Neutrophils Percent Auto 70.7 % (45-73); Platelet Count 262 X10*3/uL (160-400); Red Blood Count 4.78 X10*6/uL (4.20-5.50); Red Cell Distribution Width 15.6 % (11.0-16.0); White Blood Count 10.5 X10*3/uL (4.8-10.8)
[2022-04-24 11:19] LABS: COVID-19 Test Negative (Negative); IDNOW Serial# 16C4AD1C
[2022-04-24 11:30] LABS: Alanine Aminotransferase 18 U/L (0-31); Albumin Level 4.3 g/dL (3.5-5.0); Alkaline Phosphatase 128 U/L (39-117); Anion Gap 11 (12-20); Aspartate Amino Transferase 17 U/L (5-31); Bilirubin Total 0.2 mg/dL (0.0-1.0); Blood Urea Nitrogen 7 mg/dL (9-16); Calcium 8.7 mg/dL (8.4-10.2); Carbon Dioxide 27 mmol/L (22-29); Chloride 107 mmol/L (96-108); Creatinine Clr Calc Pharmacy 106.2; Estimated Glomerular Filt Rate > 60; Ethanol < 10 mg/dL; Glucose Random 144 mg/dL (60-115); Potassium 4.1 mmol/L (3.3-5.1); Sodium 141 mmol/L (135-145); Total Protein 6.4 g/dL (6.5-8.0)
[2022-04-24 11:59] VITALS: BP 123/64; PULSE 99; RESP 18; O2SAT 97
--- NOTE | 2022-04-24 16:08 | PC.NURSE ---
care team at the bedside
--- NOTE | 2022-04-24 17:39 | PC.NURSE ---
patient cooperative and polite to staff. able to make needs known. denying HI thoughts at this time
[2022-04-25] VITALS (10 sets, daily range): BP systolic 107; BP diastolic 74; PULSE 87; RESP 16–22; TEMP 36.3; O2SAT 97
--- NOTE | 2022-04-25 06:21 | MHC.EDTECH ---
PATIENT REFUSED VAITALS AND URINE SAMPLE AT THIS TIME RN WAS NOTIFIED WILL CONTINUE TO MONITOR
--- NOTE | 2022-04-25 06:25 | PC.NURSE ---
Patient slept whole evening and night, no distress observed/reported, HS medication not administered because refused to wake up to take it, don't disturb me and let me sleep said the patient, behavior non concerning but at time gets loud and disruptive, patient was assessed by care team disposition is section 12 inpatient bed search, refused vital sign assessment x 3, will continue to monitor.
--- NOTE | 2022-04-25 09:15 | MHC.CARE ---
Karol newell [facility] [phone] calls to give CARE team the [facility] contact for patient. Isma Day is Clinical Technology Analyst [phone] and the [facility] office number [phone]
--- NOTE | 2022-04-25 09:17 | PC.NURSE ---
Meds deferred for sleep at this time.
--- NOTE | 2022-04-25 13:09 | PC.NURSE ---
Pt offerred medication. Refusing asking to sleep.
[2022-04-25] MEDS: metFORMIN HCl 1,000 MG TABLET 1000 MG PO (15:18)
[2022-04-25] MEDS: chlorproMAZINE HCl 100 MG TABLET PO (15:18)
--- NOTE | 2022-04-25 15:18 | MHC.EDTECH ---
t/w approached pt about performing EKG. pt refused and said EKGs do not work on me because I have a neural stimulator. rn trista townsend.
[2022-04-25 16:06] LABS: Appearance Urine Turbid; Color Urine Yellow; Glucose Urine UA 250 mg/dL (Negative); Leukocyte Esterase Urine Trace (Negative); Nitrite Urine Negative (Negative); Specific Gravity - Urine 1.025 (1.005-1.025); UMIC TRIGGER UACC YES; Urine Blood Large (3+) (Negative); Urine Ketones Trace mg/dL (Negative); Urine Protein Trace mg/dL (Neg-Trace)
[2022-04-25 16:10] LABS: UPreg QC Valid YES; Urine Pregnancy NEGATIVE (NEGATIVE)
[2022-04-25 16:17] LABS: Bacteria Urine 4+ (None Seen); Hyaline Casts Urine 0-2 /LPF (0-2); RBC Urine >20 /HPF (0-2); UACC Culture Trigger YES
[2022-04-25 16:25] LABS: Amphetamine Screen Urine Not Detected (Not Detect); Barbiturates, Urine Not Detected (Not Detect); Benzodiazepines Screen Urine Not Detected (Not Detect); Cannabinoid Screen Urine Not Detected (Not Detect); Cocaine Screen Urine Not Detected (Not Detect); Fentanyl, urine Not Detected (Not Detect); Opiate Screen Urine Not Detected (Not Detect); Phencyclidine Screen Urine Not Detected (Not Detect)
[2022-04-25] MEDS: Haloperidol Lactate 5 MG/ML VIAL IM (16:25)
[2022-04-25] MEDS: LORazepam 2 MG/ML VIAL IM (16:25)
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
[2022-04-25] MEDS: busPIRone HCl 5 MG TABLET 7.5 MG PO (21:25)
[2022-04-25] MEDS: chlorproMAZINE HCl 100 MG TABLET 200 MG PO (21:25)
[2022-04-25] MEDS: Omeprazole 20 MG CAPSULE.DR PO (21:26)
[2022-04-25] MEDS: Prazosin HCL 1 MG CAPSULE 4 MG PO (21:26)
[2022-04-25] MEDS: Cariprazine HCl 1.5 MG CAPSULE 4.5 MG PO (21:26)
--- NOTE | 2022-04-26 | ECG_ITS ---
Test Reason : FOR ADMISSION Blood Pressure : / mmHG Vent. Rate : 087 BPM Atrial Rate : 000 BPM P-R Int : 000 ms QRS Dur : 074 ms QT Int : 366 ms P-R-T Axes : 000 049 120 degrees QTc Int : 440 ms Poor data quality Normal sinus rhythm Abnormal ECG When compared with ECG of 25-JAN-2020 05:48, Poor data quality in current ECG precludes serial comparison Referred By: Matt Larson Electronically Signed By:KIMBERLY MUSTAFA MD
--- NOTE | 2022-04-26 05:35 | PC.NURSE ---
Patient slept though through the night, no distress observed/reported, behavior isolative but non concerning at this time, medication compliant, disposition per care team is section 12 inpatient bed search, VSS, will continue to monitor.
[2022-04-26 06:16] VITALS: RESP 14
--- NOTE | 2022-04-26 08:51 | PC.NURSE ---
Attempted to give AM meds, pt refused saying i want to sleep. Leave me alone. I don't care .
--- NOTE | 2022-04-26 11:36 | MHC.CARE ---
Pt accepted to for inpatient psychiatric admission transfer is pending currently.
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
--- NOTE | 2022-04-26 11:55 | PC.NURSE ---
Per Dr. Silva: hold zoloft during rounds.
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
[2022-04-26 16:09] VITALS: BP 119/69; PULSE 88; RESP 18; TEMP 36.3; O2SAT 98
[2022-04-26] MEDS: chlorproMAZINE HCl 100 MG TABLET PO (16:44)
[2022-04-26] MEDS: metFORMIN HCl 1,000 MG TABLET 1000 MG PO (16:44)
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
--- NOTE | 2022-04-27 05:38 | PC.NURSE ---
Pt was asleep since change of shift at 1900. TW attempted to wake pt x2 for scheduled meds, however pt was unable to be woken; pt did not receive bedtime meds.
[2022-04-27 07:00] VITALS: BMI 31.5
[2022-04-27 08:45] VITALS: BP 111/78; PULSE 93; RESP 18; TEMP 36.4; O2SAT 96
[2022-04-27 08:46] LABS: Glucose, Whole Blood 149 mg/dL (60-115)
[2022-04-27] MEDS: Multivitamin TABLET 1 TAB PO (08:52)
[2022-04-27] MEDS: metFORMIN HCl 1,000 MG TABLET 1000 MG PO ×2 (08:52→17:35)
[2022-04-27] MEDS: Atorvastatin Calcium 40 MG TABLET PO (08:53)
[2022-04-27] MEDS: Ferrous Sulfate 324 MG TABLET.DR PO (08:53)
[2022-04-27] MEDS: chlorproMAZINE HCl 100 MG TABLET PO ×2 (08:53→15:37)
[2022-04-27] MEDS: busPIRone HCl 5 MG TABLET 7.5 MG PO (08:53)
[2022-04-27] MEDS: Aspirin Enteric Coated 81 MG TABLET.DR PO (08:53)
[2022-04-27] MEDS: hydrOXYzine HCL 25 MG TABLET PO ×2 (10:05→22:47)
[2022-04-27] MEDS: Nicotine 21 MG PATCH.TD24 TRANSDERMA (10:06)
[2022-04-27] MEDS: Sertraline HCL 50 MG TABLET 150 MG PO (13:02)
[2022-04-27] MEDS: Nicotine Polacrilex Lozenge 4 MG LOZENGE BUCCAL (14:01)
[2022-04-27] MEDS: Fluticasone Propionate Nasal 16 GM SPRAY 2 SPRAY NOSTRIL-B (14:33)
[2022-04-27] MEDS: Methylphenidate HCl 5 MG TABLET PO (14:33)
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
[2022-04-27 22:35] VITALS: BP 125/72; PULSE 91; RESP 16; TEMP 36.6; O2SAT 97
[2022-04-27] MEDS: Prazosin HCL 1 MG CAPSULE 4 MG PO (22:36)
[2022-04-27] MEDS: Omeprazole 20 MG CAPSULE.DR PO (22:38)
[2022-04-27] MEDS: Sennosides 8.6 MG TABLET PO (22:38)
[2022-04-27] MEDS: Cariprazine HCl 1.5 MG CAPSULE 4.5 MG PO (22:38)
[2022-04-27] MEDS: chlorproMAZINE HCl 100 MG TABLET 200 MG PO (22:38)
[2022-04-27] MEDS: busPIRone HCl 10 MG TABLET PO (22:41)
[2022-04-27] MEDS: Acetaminophen 325 MG TABLET 975 MG PO (22:47)
[2022-04-27] MEDS: traZODone HCL 50 MG TABLET PO (22:50)
[2022-04-28 08:45] VITALS: BP 119/71; PULSE 95; RESP 18; TEMP 36.8; O2SAT 98
[2022-04-28] MEDS: Aspirin Enteric Coated 81 MG TABLET.DR PO (09:01)
[2022-04-28] MEDS: chlorproMAZINE HCl 100 MG TABLET PO (09:01)
[2022-04-28] MEDS: Atorvastatin Calcium 40 MG TABLET PO (09:02)
[2022-04-28] MEDS: busPIRone HCl 10 MG TABLET PO ×2 (09:02→22:19)
[2022-04-28] MEDS: metFORMIN HCl 1,000 MG TABLET 1000 MG PO ×2 (09:02→16:59)
[2022-04-28] MEDS: Methylphenidate HCl 5 MG TABLET PO ×3 (09:02→16:59)
[2022-04-28] MEDS: Sertraline HCL 50 MG TABLET 150 MG PO (09:02)
[2022-04-28] MEDS: Ferrous Sulfate 324 MG TABLET.DR PO (09:02)
[2022-04-28] MEDS: Nicotine 21 MG PATCH.TD24 TRANSDERMA (09:03)
[2022-04-28] MEDS: Multivitamin TABLET 1 TAB PO (09:06)
[2022-04-28] MEDS: Fluticasone Propionate Nasal 16 GM SPRAY 2 SPRAY NOSTRIL-B (09:10)
[2022-04-28 10:26] LABS: Glucose, Whole Blood 141 mg/dL (60-115)
[2022-04-28] MEDS: hydrOXYzine HCL 25 MG TABLET PO ×2 (10:50→20:34)
[2022-04-28] MEDS: Magnesium Hydrox/Alum Hydrox 30 ML ORAL.SUSP PO (14:04)
--- NOTE | 2022-04-28 14:30 | HO.PSYCHPN ---
Subjective Subjective Date of Service: 04/28/22 Reason For Visit: HI Interim History: calm, cooperative. c/o feeling drowsy after taking morning meds, thorazine in morning and afternoon decreased from 100 each to 50 each. also reports sleeping fine without nightmares, asks to decrease praozins from 4 mg to 3 mg at HS, which is done. feels meds are helpful otherwise. no other complaints or requests. per staff, feeling overwhelmed by anxiety and depression. eating and sleeping well. low frustration tolerance. keeping to herself for the most part. pleasant, polite. poor ADLs and refusig meds at custodial. Mental Status Exam Mental Status Exam Narrative: adequately dressed and groomed. no PMA/PMR. cooperative. speech nml in rate, amount, loudness, tone, latency. thoughts linear and logical without evidence of delusions or paranoia. affect constricted, normo-intense, min-labile. mood better. denies SI/SIBI/HI/VH. endorses derogatory AH. Diagnostics Vital Signs (24Hr): Vital Signs - 24 hr 04/27/22 22:35 04/28/22 08:45 Temperature 97.8 F 98.3 F Pulse Rate 91 95 Respiratory Rate 16 18 Blood Pressure 125/72 119/71 Pulse Oximetry 97 98 Oxygen Delivery Method Room Air BMI result Body Mass Index 31.5 Labs Results: 04/24/22 10:53 04/24/22 10:53 Labs: Laboratory Results - last 48 hr 04/27/22 04/28/22 08:38 09:08 POC Glucose 149 H 141 H Medications Medications Current Medications Acetaminophen (Acetaminophen 325 Mg Tablet) 975 mg PO Q6H PRN PRN Reason: Headache/Pain Mild Scale (1-3) Last Admin: 04/27/22 22:47 Dose: 975 mg Al Hydroxide/Mg Hydroxide (Magnesium Hydrox/Alum Hydrox 30 Ml Oral.Susp) 30 ml PO Q6H PRN PRN Reason: Heartburn/Nausea Last Admin: 04/28/22 14:04 Dose: 30 ml Aspirin (Aspirin Enteric Coated 81 Mg Tablet.) 81 mg PO DAILY [facility] Last Admin: 04/28/22 09:01 Dose: 81 mg Atorvastatin Calcium (Atorvastatin Calcium 40 Mg Tablet) 40 mg PO DAILY [facility] Last Admin: 04/28/22 09:02 Dose: 40 mg Buspirone HCl (Buspirone Hcl 10 Mg Tablet) 10 mg PO BID [facility] Last Admin: 04/28/22 09:02 Dose: 10 mg Cariprazine (Cariprazine Hcl 1.5 Mg Capsule) 4.5 mg PO BEDTIME [facility] Last Admin: 04/27/22 22:38 Dose: 4.5 mg Chlorpromazine HCl (Chlorpromazine Hcl 100 Mg Tablet) 200 mg PO BEDTIME [facility] Last Admin: 04/27/22 22:38 Dose: 200 mg Chlorpromazine HCl (Chlorpromazine Hcl 100 Mg Tablet) 50 mg PO BID@0800,1600 [facility] Docusate Sodium (Docusate Sodium 100 Mg Capsule) 50 mg PO BEDTIME [facility] Last Admin: 04/27/22 22:42 Dose: Not Given Docusate Sodium (Docusate Sodium 100 Mg/10 Ml Liquid) 50 mg PO BEDTIME PRN PRN Reason: Constipation Ferrous Sulfate (Ferrous Sulfate 324 Mg Tablet.Dr) 324 mg PO DAILY [facility] Last Admin: 04/28/22 09:02 Dose: 324 mg Fluticasone Propionate (Fluticasone Propionate Nasal 16 Gm [place]) 2 spray NOSTRIL-B DAILY [facility] Last Admin: 04/28/22 09:10 Dose: 2 spray Hydroxyzine HCl (Hydroxyzine Hcl 25 Mg Tablet) 25 mg PO BID PRN PRN Reason: Anxiety Last Admin: 04/28/22 10:50 Dose: 25 mg Ibuprofen (Ibuprofen 600 Mg Tablet) 600 mg PO Q8H PRN PRN Reason: cramping Magnesium Hydroxide (Milk Of Magnesia 30 Ml Oral.Susp) 30 ml PO DAILY PRN PRN Reason: Constipation Metformin HCl (Metformin Hcl 1,000 Mg Tablet) 1,000 mg PO BIDWM [facility] Last Admin: 04/28/22 09:02 Dose: 1,000 mg Methylphenidate HCl (Methylphenidate Hcl 5 Mg Tablet) 5 mg PO TID@0800,1200,1600 [facility] Last Admin: 04/28/22 12:14 Dose: 5 mg Multivitamins/Vitamin C (Multivitamin Tablet) 1 tab PO DAILY [facility] Last Admin: 04/28/22 09:06 Dose: 1 tab Nicotine (Nicotine 21 Mg Patch.Td24) 21 mg TRANSDERMA DAILY [facility] Last Admin: 04/28/22 09:03 Dose: 21 mg Nicotine Polacrilex (Nicotine Polacrilex Lozenge 4 Mg Lozenge) 4 mg BUCCAL Q2H PRN PRN Reason: Nicotine Cravings Last Admin: 04/27/22 14:01 Dose: 4 mg Omeprazole (Omeprazole 20 Mg Capsule.Dr) 20 mg PO BEDTIME [facility] Last Admin: 04/27/22 22:38 Dose: 20 mg Prazosin HCl (Prazosin Hcl 1 Mg Capsule) 3 mg PO BEDTIME [facility]; Protocol Senna (Sennosides 8.6 Mg Tablet) 8.6 mg PO BEDTIME [facility] Last Admin: 04/27/22 22:38 Dose: 8.6 mg Sertraline HCl (Sertraline Hcl 50 Mg Tablet) 150 mg PO DAILY [facility] Last Admin: 04/28/22 09:02 Dose: 150 mg Trazodone HCl (Trazodone Hcl 50 Mg Tablet) 50 mg PO BEDTIME PRN PRN Reason: Insomnia Last Admin: 04/27/22 22:50 Dose: 50 mg Allergies Allergies Allergy/AdvReac Type Severity Reaction Status Date / Time amoxicillin [Amoxicillin] Allergy Mild HIVES Verified 04/24/22 09:32 baclofen [Baclofen] Allergy Unknown UNKNOWN Verified 04/24/22 09:32 bupropion [From Wellbutrin] Allergy Unknown UNKNOWN Verified 04/24/22 09:32 diphenhydramine Allergy Unknown UNKNOWN Verified 04/24/22 09:32 [From Benadryl] divalproex sodium Allergy Unknown UNKNOWN Verified 04/24/22 09:32 [From Depakote] fluoxetine [From Prozac] Allergy Unknown UNKNOWN Verified 04/24/22 09:32 Penicillins Allergy Unknown UNKNOWN Verified 04/24/22 09:32 Assessment & Plan Assessment & Plan (1) Chronic posttraumatic stress disorder: Status: Acute Code(s): F43.12 - Post-traumatic stress disorder, chronic (2) Development disorder, mixed: Status: Acute Code(s): F88 - Other disorders of psychological development (3) Borderline personality disorder: Status: Acute Code(s): F60.3 - Borderline personality disorder (4) Schizoaffective disorder: Status: Acute Code(s): F25.9 - Schizoaffective disorder, unspecified Plan 04/27: restabilize on home meds, which she had not been taking consistently. 12/30: decrease morning and afternoon thorazine to 50 mg each dose (from 100 each), decrease HS prazosin dosing from 4 mg to 3 mg. otherwise continue regimen instituted yesterday. Reason for contiued inpatient stay Substantial Risk for: harm to self, harm to others, inability to function and rapid decompensation Time Spent With Patient Time: Total time managing care of this patient today _20___ minutes.
[2022-04-28] MEDS: chlorproMAZINE HCl 25 MG TABLET 50 MG PO (16:59)
[2022-04-28] MEDS: Acetaminophen 325 MG TABLET 975 MG PO (18:09)
[2022-04-28 21:42] VITALS: BP 125/67; PULSE 87; TEMP 36.7; O2SAT 95
[2022-04-28] MEDS: Prazosin HCL 1 MG CAPSULE 3 MG PO (22:16)
[2022-04-28] MEDS: chlorproMAZINE HCl 100 MG TABLET 200 MG PO (22:16)
[2022-04-28] MEDS: Cariprazine HCl 1.5 MG CAPSULE 4.5 MG PO (22:17)
[2022-04-28] MEDS: Sennosides 8.6 MG TABLET PO (22:18)
[2022-04-28] MEDS: Docusate Sodium 100 MG CAPSULE 50 MG PO (22:18)
[2022-04-28] MEDS: Omeprazole 20 MG CAPSULE.DR PO (22:19)
--- NOTE | 2022-04-29 01:43 | PC.NURSE ---
colace-request made to change HS colace to 100 mg gel tab or 50mg liquid. gel tab does not come in 50mg dose.
[2022-04-29 08:31] LABS: Glucose, Whole Blood 134 mg/dL (60-115)
[2022-04-29] MEDS: Nicotine 21 MG PATCH.TD24 TRANSDERMA (09:13)
[2022-04-29] MEDS: Fluticasone Propionate Nasal 16 GM SPRAY 2 SPRAY NOSTRIL-B (09:13)
[2022-04-29] MEDS: Ferrous Sulfate 324 MG TABLET.DR PO (09:14)
[2022-04-29] MEDS: Aspirin Enteric Coated 81 MG TABLET.DR PO (09:14)
[2022-04-29] MEDS: Sertraline HCL 50 MG TABLET 150 MG PO (09:14)
[2022-04-29] MEDS: Atorvastatin Calcium 40 MG TABLET PO (09:14)
[2022-04-29] MEDS: busPIRone HCl 10 MG TABLET PO ×2 (09:14→22:21)
[2022-04-29] MEDS: metFORMIN HCl 1,000 MG TABLET 1000 MG PO ×2 (09:14→16:11)
[2022-04-29] MEDS: chlorproMAZINE HCl 25 MG TABLET 50 MG PO ×2 (09:14→16:11)
[2022-04-29] MEDS: Methylphenidate HCl 5 MG TABLET PO ×3 (09:15→16:11)
[2022-04-29] MEDS: Multivitamin TABLET 1 TAB PO (09:15)
[2022-04-29 09:48] VITALS: BP 114/60; PULSE 96; TEMP 36.2; O2SAT 96
[2022-04-29] MEDS: Acetaminophen 325 MG TABLET 975 MG PO ×2 (12:20→20:50)
[2022-04-29] MEDS: hydrOXYzine HCL 25 MG TABLET PO (13:11)
--- NOTE | 2022-04-29 13:20 | P.PNPSI_ITS ---
Subjective Subjective Date of Service: 04/29/22 Reason For Visit: HI Interim History: Patient seen and discussed. She reports she feels tired and sedated. She is asking whether her Prazosin can be decreased. She says she is using coping skills. She is proactively asking for materials to practice coping. Attending groups. feels meds are helpful otherwise. no other complaints or requests. Eating and sleeping well. low frustration tolerance. pleasant, polite. Review of Systems Review of Systems Constitutional : No Fever, No Chills ENT/Mouth : No Ear Pain, No Nasal Congestion, No sore throat Eyes: No Eye Pain, No Swelling, No Redness Cardiovascular : No Chest Pain, No SOB Respiratory : No Cough, No Sputum, No Dyspnea Gastrointestinal : No Nausea, No Vomiting, No Diarrhea, No Hematochezia, No Melena Genitourinary : No Dysuria, No Urinary Frequency, No Hematuria Musculoskeletal : No Myalgias Skin : No Skin Lesions, No rash Neuro : No Weakness, No Numbness, No Paresthesias, No Dizziness, No Headache Psych : positive Anxiety, no Depression, positive SI/HI Yes all other systems are reviewed and are negative Mental Status Exam Mental Status Exam Narrative: adequately dressed and groomed. no PMA/PMR. cooperative. speech nml in rate, amount, loudness, tone, latency. thoughts linear and logical without evidence of delusions or paranoia. affect constricted, normo-intense, min-labile. mood better. denies SI/SIBI/HI/VH. endorses derogatory AH. Diagnostics Vital Signs (24Hr): Vital Signs - 24 hr 04/28/22 21:42 04/29/22 09:48 Temperature 98.1 F 97.2 F Pulse Rate 87 96 Blood Pressure 125/67 114/60 Pulse Oximetry 95 96 Oxygen Delivery Method Room Air Room Air BMI result Body Mass Index 31.5 Labs Results: 04/24/22 10:53 04/24/22 10:53 Labs: Laboratory Results - last 48 hr 04/28/22 04/29/22 09:08 08:23 POC Glucose 141 H 134 H Medications Medications Current Medications Acetaminophen (Acetaminophen 325 Mg Tablet) 975 mg PO Q6H PRN PRN Reason: Headache/Pain Mild Scale (1-3) Last Admin: 04/29/22 12:20 Dose: 975 mg Al Hydroxide/Mg Hydroxide (Magnesium Hydrox/Alum Hydrox 30 Ml Oral.Susp) 30 ml PO Q6H PRN PRN Reason: Heartburn/Nausea Last Admin: 04/28/22 14:04 Dose: 30 ml Aspirin (Aspirin Enteric Coated 81 Mg Tablet.) 81 mg PO DAILY [facility] Last Admin: 04/29/22 09:14 Dose: 81 mg Atorvastatin Calcium (Atorvastatin Calcium 40 Mg Tablet) 40 mg PO DAILY [facility] Last Admin: 04/29/22 09:14 Dose: 40 mg Buspirone HCl (Buspirone Hcl 10 Mg Tablet) 10 mg PO BID [facility] Last Admin: 04/29/22 09:14 Dose: 10 mg Cariprazine (Cariprazine Hcl 1.5 Mg Capsule) 4.5 mg PO BEDTIME [facility] Last Admin: 04/28/22 22:17 Dose: 4.5 mg Chlorpromazine HCl (Chlorpromazine Hcl 100 Mg Tablet) 200 mg PO BEDTIME [facility] Last Admin: 04/28/22 22:16 Dose: 200 mg Chlorpromazine HCl (Chlorpromazine Hcl 25 Mg Tablet) 50 mg PO BID@0800,1600 [facility] Last Admin: 04/29/22 16:11 Dose: 50 mg Docusate Sodium (Docusate Sodium 100 Mg/10 Ml Liquid) 50 mg PO BEDTIME PRN PRN Reason: Constipation Docusate Sodium (Docusate Sodium 100 Mg Capsule) 100 mg PO BEDTIME [facility] Ferrous Sulfate (Ferrous Sulfate 324 Mg Tablet.) 324 mg PO DAILY [facility] Last Admin: 04/29/22 09:14 Dose: 324 mg Fluticasone Propionate (Fluticasone Propionate Nasal 16 Gm [place]) 2 spray NOSTRIL-B DAILY [facility] Last Admin: 04/29/22 09:13 Dose: 2 spray Hydroxyzine HCl (Hydroxyzine Hcl 25 Mg Tablet) 25 mg PO BID PRN PRN Reason: Anxiety Last Admin: 04/29/22 13:11 Dose: 25 mg Ibuprofen (Ibuprofen 600 Mg Tablet) 600 mg PO Q8H PRN PRN Reason: cramping Magnesium Hydroxide (Milk Of Magnesia 30 Ml Oral.Susp) 30 ml PO DAILY PRN PRN Reason: Constipation Metformin HCl (Metformin Hcl 1,000 Mg Tablet) 1,000 mg PO BIDWM [facility] Last Admin: 04/29/22 16:11 Dose: 1,000 mg Methylphenidate HCl (Methylphenidate Hcl 5 Mg Tablet) 5 mg PO TID@0800,1200,1600 [facility] Last Admin: 04/29/22 16:11 Dose: 5 mg Multivitamins/Vitamin C (Multivitamin Tablet) 1 tab PO DAILY [facility] Last Admin: 04/29/22 09:15 Dose: 1 tab Nicotine (Nicotine 21 Mg Patch.Td24) 21 mg TRANSDERMA DAILY [facility] Last Admin: 04/29/22 09:13 Dose: 21 mg Nicotine Polacrilex (Nicotine Polacrilex Lozenge 4 Mg Lozenge) 4 mg BUCCAL Q2H PRN PRN Reason: Nicotine Cravings Last Admin: 04/27/22 14:01 Dose: 4 mg Omeprazole (Omeprazole 20 Mg Capsule.Dr) 20 mg PO BEDTIME [facility] Last Admin: 04/28/22 22:19 Dose: 20 mg Prazosin HCl (Prazosin Hcl 1 Mg Capsule) 2 mg PO BEDTIME [facility]; Protocol Senna (Sennosides 8.6 Mg Tablet) 8.6 mg PO BEDTIME [facility] Last Admin: 04/28/22 22:18 Dose: 8.6 mg Sertraline HCl (Sertraline Hcl 50 Mg Tablet) 150 mg PO DAILY [facility] Last Admin: 04/29/22 09:14 Dose: 150 mg Trazodone HCl (Trazodone Hcl 50 Mg Tablet) 50 mg PO BEDTIME PRN PRN Reason: Insomnia Last Admin: 04/27/22 22:50 Dose: 50 mg Allergies Allergies Allergy/AdvReac Type Severity Reaction Status Date / Time amoxicillin [Amoxicillin] Allergy Mild HIVES Verified 04/24/22 09:32 baclofen [Baclofen] Allergy Unknown UNKNOWN Verified 04/24/22 09:32 bupropion [From Wellbutrin] Allergy Unknown UNKNOWN Verified 04/24/22 09:32 diphenhydramine Allergy Unknown UNKNOWN Verified 04/24/22 09:32 [From Benadryl] divalproex sodium Allergy Unknown UNKNOWN Verified 04/24/22 09:32 [From Depakote] fluoxetine [From Prozac] Allergy Unknown UNKNOWN Verified 04/24/22 09:32 Penicillins Allergy Unknown UNKNOWN Verified 04/24/22 09:32 Assessment & Plan Assessment & Plan (1) Chronic posttraumatic stress disorder: Status: Acute Code(s): F43.12 - Post-traumatic stress disorder, chronic (2) Development disorder, mixed: Status: Acute Code(s): F88 - Other disorders of psychological development (3) Borderline personality disorder: Status: Acute Code(s): F60.3 - Borderline personality disorder (4) Schizoaffective disorder: Status: Acute Code(s): F25.9 - Schizoaffective disorder, unspecified Plan 04/27: restabilize on home meds, which she had not been taking consistently. 04/28: decrease morning and afternoon thorazine to 50 mg each dose (from 100 each), decrease HS prazosin dosing from 4 mg to 3 mg. otherwise continue regimen instituted yesterday. 04/29: Decrease Prazosin to 2 mg HS tonight. Reason for contiued inpatient stay Substantial Risk for: inability to function and rapid decompensation Time Spent With Patient Time: Total time managing care of this patient today ____ minutes.
[2022-04-29 22:00] VITALS: BP 125/66; PULSE 66; TEMP 36.6; O2SAT 100
[2022-04-29] MEDS: Cariprazine HCl 1.5 MG CAPSULE 4.5 MG PO (22:19)
[2022-04-29] MEDS: chlorproMAZINE HCl 100 MG TABLET 200 MG PO (22:19)
[2022-04-29] MEDS: Sennosides 8.6 MG TABLET PO (22:20)
[2022-04-29] MEDS: Prazosin HCL 1 MG CAPSULE 2 MG PO (22:20)
[2022-04-29] MEDS: Docusate Sodium 100 MG CAPSULE PO (22:20)
[2022-04-29] MEDS: Omeprazole 20 MG CAPSULE.DR PO (22:21)
[2022-04-29] MEDS: traZODone HCL 50 MG TABLET PO (22:28)
[2022-04-30 07:15] LABS: Glucose, Whole Blood 118 mg/dL (60-115)
[2022-04-30] MEDS: Nicotine 21 MG PATCH.TD24 TRANSDERMA (08:23)
[2022-04-30] MEDS: Sertraline HCL 50 MG TABLET 150 MG PO (08:24)
[2022-04-30] MEDS: Fluticasone Propionate Nasal 16 GM SPRAY 2 SPRAY NOSTRIL-B (08:24)
[2022-04-30] MEDS: Methylphenidate HCl 5 MG TABLET PO ×3 (08:25→16:27)
[2022-04-30] MEDS: chlorproMAZINE HCl 25 MG TABLET 50 MG PO ×2 (08:25→16:27)
[2022-04-30] MEDS: Multivitamin TABLET 1 TAB PO (08:25)
[2022-04-30] MEDS: busPIRone HCl 10 MG TABLET PO ×2 (08:25→22:27)
[2022-04-30] MEDS: metFORMIN HCl 1,000 MG TABLET 1000 MG PO ×2 (08:25→16:27)
[2022-04-30] MEDS: Aspirin Enteric Coated 81 MG TABLET.DR PO (08:25)
[2022-04-30] MEDS: Ferrous Sulfate 324 MG TABLET.DR PO (08:25)
[2022-04-30] MEDS: Atorvastatin Calcium 40 MG TABLET PO (08:25)
[2022-04-30] MEDS: Acetaminophen 325 MG TABLET 975 MG PO ×2 (08:59→17:09)
[2022-04-30 09:09] VITALS: BP 129/66; PULSE 82; TEMP 36.5; O2SAT 98
--- NOTE | 2022-04-30 14:00 | HO.PSYCHPN ---
Subjective Subjective Date of Service: 04/30/22 Reason For Visit: HI Interim History: Patient seen and discussed. She report she would like to continue tapering off Prazosin. Her goal is for her to get off it. She is feeling somewhat down today. Unsure why. Denies SI. Eating and sleeping well. Polite. Attending groups. Utilizing coping skills. Review of Systems Review of Systems Constitutional : No Fever, No Chills ENT/Mouth : No Ear Pain, No Nasal Congestion, No sore throat Eyes: No Eye Pain, No Swelling, No Redness Cardiovascular : No Chest Pain, No SOB Respiratory : No Cough, No Sputum, No Dyspnea Gastrointestinal : No Nausea, No Vomiting, No Diarrhea, No Hematochezia, No Melena Genitourinary : No Dysuria, No Urinary Frequency, No Hematuria Musculoskeletal : No Myalgias Skin : No Skin Lesions, No rash Neuro : No Weakness, No Numbness, No Paresthesias, No Dizziness, No Headache Psych : positive Anxiety, no Depression, positive SI/HI Yes all other systems are reviewed and are negative Mental Status Exam Mental Status Exam Narrative: adequately dressed and groomed. no PMA/PMR. cooperative. speech nml in rate, amount, loudness, tone, latency. thoughts linear and logical without evidence of delusions or paranoia. affect constricted, normo-intense, min-labile. mood better. denies SI/SIBI/HI/VH. endorses derogatory AH. Diagnostics Vital Signs (24Hr): Vital Signs - 24 hr 04/29/22 22:00 04/30/22 09:09 Temperature 97.8 F 97.7 F Pulse Rate 66 82 Blood Pressure 125/66 129/66 Pulse Oximetry 100 98 Oxygen Delivery Method Room Air Room Air BMI result Body Mass Index 31.5 Labs Results: 04/24/22 10:53 04/24/22 10:53 Labs: Laboratory Results - last 48 hr 04/29/22 04/30/22 08:23 07:12 POC Glucose 134 H 118 H Medications Medications Current Medications Acetaminophen (Acetaminophen 325 Mg Tablet) 975 mg PO Q6H PRN PRN Reason: Headache/Pain Mild Scale (1-3) Last Admin: 04/30/22 17:09 Dose: 975 mg Al Hydroxide/Mg Hydroxide (Magnesium Hydrox/Alum Hydrox 30 Ml Oral.Susp) 30 ml PO Q6H PRN PRN Reason: Heartburn/Nausea Last Admin: 04/30/22 14:05 Dose: 30 ml Aspirin (Aspirin Enteric Coated 81 Mg Tablet.) 81 mg PO DAILY [facility] Last Admin: 04/30/22 08:25 Dose: 81 mg Atorvastatin Calcium (Atorvastatin Calcium 40 Mg Tablet) 40 mg PO DAILY [facility] Last Admin: 04/30/22 08:25 Dose: 40 mg Buspirone HCl (Buspirone Hcl 10 Mg Tablet) 10 mg PO BID [facility] Last Admin: 04/30/22 08:25 Dose: 10 mg Cariprazine (Cariprazine Hcl 1.5 Mg Capsule) 4.5 mg PO BEDTIME [facility] Last Admin: 04/29/22 22:19 Dose: 4.5 mg Chlorpromazine HCl (Chlorpromazine Hcl 100 Mg Tablet) 200 mg PO BEDTIME [facility] Last Admin: 04/29/22 22:19 Dose: 200 mg Chlorpromazine HCl (Chlorpromazine Hcl 25 Mg Tablet) 50 mg PO BID@0800,1600 [facility] Last Admin: 04/30/22 16:27 Dose: 50 mg Docusate Sodium (Docusate Sodium 100 Mg/10 Ml Liquid) 50 mg PO BEDTIME PRN PRN Reason: Constipation Docusate Sodium (Docusate Sodium 100 Mg Capsule) 100 mg PO BEDTIME [facility] Last Admin: 04/29/22 22:20 Dose: 100 mg Ferrous Sulfate (Ferrous Sulfate 324 Mg Tablet.Dr) 324 mg PO DAILY [facility] Last Admin: 04/30/22 08:25 Dose: 324 mg Fluticasone Propionate (Fluticasone Propionate Nasal 16 Gm [place]) 2 spray NOSTRIL-B DAILY [facility] Last Admin: 04/30/22 08:24 Dose: 2 spray Hydroxyzine HCl (Hydroxyzine Hcl 25 Mg Tablet) 25 mg PO BID PRN PRN Reason: Anxiety Last Admin: 04/29/22 13:11 Dose: 25 mg Ibuprofen (Ibuprofen 600 Mg Tablet) 600 mg PO Q8H PRN PRN Reason: cramping Magnesium Hydroxide (Milk Of Magnesia 30 Ml Oral.Susp) 30 ml PO DAILY PRN PRN Reason: Constipation Metformin HCl (Metformin Hcl 1,000 Mg Tablet) 1,000 mg PO BIDWM [facility] Last Admin: 04/30/22 16:27 Dose: 1,000 mg Methylphenidate HCl (Methylphenidate Hcl 5 Mg Tablet) 5 mg PO TID@0800,1200,1600 [facility] Last Admin: 04/30/22 16:27 Dose: 5 mg Multivitamins/Vitamin C (Multivitamin Tablet) 1 tab PO DAILY [facility] Last Admin: 04/30/22 08:25 Dose: 1 tab Nicotine (Nicotine 21 Mg Patch.Td24) 21 mg TRANSDERMA DAILY [facility] Last Admin: 04/30/22 08:23 Dose: 21 mg Nicotine Polacrilex (Nicotine Polacrilex Lozenge 4 Mg Lozenge) 4 mg BUCCAL Q2H PRN PRN Reason: Nicotine Cravings Last Admin: 04/27/22 14:01 Dose: 4 mg Omeprazole (Omeprazole 20 Mg Capsule.Dr) 20 mg PO BEDTIME [facility] Last Admin: 04/29/22 22:21 Dose: 20 mg Prazosin HCl (Prazosin Hcl 1 Mg Capsule) 2 mg PO BEDTIME [facility]; Protocol Last Admin: 04/29/22 22:20 Dose: 2 mg Senna (Sennosides 8.6 Mg Tablet) 8.6 mg PO BEDTIME [facility] Last Admin: 04/29/22 22:20 Dose: 8.6 mg Sertraline HCl (Sertraline Hcl 50 Mg Tablet) 150 mg PO DAILY [facility] Last Admin: 04/30/22 08:24 Dose: 150 mg Trazodone HCl (Trazodone Hcl 50 Mg Tablet) 50 mg PO BEDTIME PRN PRN Reason: Insomnia Last Admin: 04/29/22 22:28 Dose: 50 mg Allergies Allergies Allergy/AdvReac Type Severity Reaction Status Date / Time amoxicillin [Amoxicillin] Allergy Mild HIVES Verified 04/24/22 09:32 baclofen [Baclofen] Allergy Unknown UNKNOWN Verified 04/24/22 09:32 bupropion [From Wellbutrin] Allergy Unknown UNKNOWN Verified 04/24/22 09:32 diphenhydramine Allergy Unknown UNKNOWN Verified 04/24/22 09:32 [From Benadryl] divalproex sodium Allergy Unknown UNKNOWN Verified 04/24/22 09:32 [From Depakote] fluoxetine [From Prozac] Allergy Unknown UNKNOWN Verified 04/24/22 09:32 Penicillins Allergy Unknown UNKNOWN Verified 04/24/22 09:32 Assessment & Plan Assessment & Plan (1) Chronic posttraumatic stress disorder: Status: Acute Code(s): F43.12 - Post-traumatic stress disorder, chronic (2) Development disorder, mixed: Status: Acute Code(s): F88 - Other disorders of psychological development (3) Borderline personality disorder: Status: Acute Code(s): F60.3 - Borderline personality disorder (4) Schizoaffective disorder: Status: Acute Code(s): F25.9 - Schizoaffective disorder, unspecified Plan 04/27: restabilize on home meds, which she had not been taking consistently. 04/28: decrease morning and afternoon thorazine to 50 mg each dose (from 100 each), decrease HS prazosin dosing from 4 mg to 3 mg. otherwise continue regimen instituted yesterday. 04/29: Decrease Prazosin to 2 mg HS tonight. 04/30: Decrease Prazosin to 1 mg HS. Reason for contiued inpatient stay Substantial Risk for: harm to self, inability to function and rapid decompensation Time Spent With Patient Time: Total time managing care of this patient today ____ minutes.
[2022-04-30] MEDS: Magnesium Hydrox/Alum Hydrox 30 ML ORAL.SUSP PO (14:05)
[2022-04-30 21:30] VITALS: BP 120/76; PULSE 87; RESP 16; TEMP 36.6; O2SAT 97
[2022-04-30] MEDS: Cariprazine HCl 1.5 MG CAPSULE 4.5 MG PO (22:26)
[2022-04-30] MEDS: Omeprazole 20 MG CAPSULE.DR PO (22:26)
[2022-04-30] MEDS: chlorproMAZINE HCl 100 MG TABLET 200 MG PO (22:27)
[2022-04-30] MEDS: Docusate Sodium 100 MG CAPSULE PO (22:27)
[2022-04-30] MEDS: Prazosin HCL 1 MG CAPSULE PO (22:27)
[2022-04-30] MEDS: Sennosides 8.6 MG TABLET PO (22:27)
[2022-05-01] MEDS: Magnesium Hydrox/Alum Hydrox 30 ML ORAL.SUSP PO (00:50)
[2022-05-01] MEDS: hydrOXYzine HCL 25 MG TABLET PO ×2 (00:50→16:28)
[2022-05-01 06:00] VITALS: BP 114/61; PULSE 85; RESP 16; TEMP 36.4; O2SAT 96
[2022-05-01 08:12] LABS: Creatinine Clr Calc Pharmacy 105.4; Estimated Glomerular Filt Rate > 60
[2022-05-01] MEDS: Aspirin Enteric Coated 81 MG TABLET.DR PO (09:09)
[2022-05-01] MEDS: metFORMIN HCl 1,000 MG TABLET 1000 MG PO ×2 (09:09→16:11)
[2022-05-01] MEDS: Methylphenidate HCl 5 MG TABLET PO ×3 (09:09→16:11)
[2022-05-01] MEDS: Atorvastatin Calcium 40 MG TABLET PO (09:09)
[2022-05-01] MEDS: chlorproMAZINE HCl 25 MG TABLET 50 MG PO ×2 (09:09→14:37)
[2022-05-01] MEDS: busPIRone HCl 10 MG TABLET PO ×2 (09:09→20:55)
[2022-05-01] MEDS: Multivitamin TABLET 1 TAB PO (09:09)
[2022-05-01] MEDS: Ferrous Sulfate 324 MG TABLET.DR PO (09:10)
[2022-05-01] MEDS: Nicotine 21 MG PATCH.TD24 TRANSDERMA (09:10)
[2022-05-01] MEDS: Sertraline HCL 50 MG TABLET 150 MG PO (09:10)
[2022-05-01] MEDS: Fluticasone Propionate Nasal 16 GM SPRAY 2 SPRAY NOSTRIL-B (09:10)
[2022-05-01 09:24] LABS: Glucose, Whole Blood 143 mg/dL (60-115)
--- NOTE | 2022-05-01 11:55 | P.PNPSI_ITS ---
Subjective Subjective Date of Service: 05/01/22 Reason For Visit: HI Interim History: Patient seen and discussed. She report she would like to continue tapering off Prazosin and we discuss DC today. She complains today of anxiety and AH. She said Haldol worked for her in the past. We discuss using Thorazine as a PRN to streamline medication and prevent polypharmacy and if that doesn't work, can try Haldol. Denies SI. Eating and sleeping well. Polite. Attending groups. Utilizing coping skills. Medication Compliance: Yes Review of Systems Review of Systems Constitutional : No Fever, No Chills ENT/Mouth : No Ear Pain, No Nasal Congestion, No sore throat Eyes: No Eye Pain, No Swelling, No Redness Cardiovascular : No Chest Pain, No SOB Respiratory : No Cough, No Sputum, No Dyspnea Gastrointestinal : No Nausea, No Vomiting, No Diarrhea, No Hematochezia, No Melena Genitourinary : No Dysuria, No Urinary Frequency, No Hematuria Musculoskeletal : No Myalgias Skin : No Skin Lesions, No rash Neuro : No Weakness, No Numbness, No Paresthesias, No Dizziness, No Headache Psych : positive Anxiety, no Depression, positive SI/HI Yes all other systems are reviewed and are negative Mental Status Exam Mental Status Exam Narrative: adequately dressed and groomed. no PMA/PMR. cooperative. speech nml in rate, amount, loudness, tone, latency. thoughts linear and logical without evidence of delusions or paranoia. affect constricted, normo-intense, min-labile. mood better. denies SI/SIBI/HI/VH. endorses derogatory AH. Diagnostics Vital Signs (24Hr): Vital Signs - 24 hr 04/30/22 21:30 05/01/22 06:00 Temperature 97.8 F 97.5 F Pulse Rate 87 85 Respiratory Rate 16 16 Blood Pressure 120/76 114/61 Pulse Oximetry 97 96 Oxygen Delivery Method Room Air Room Air BMI result Body Mass Index 31.5 Labs Results: 04/24/22 10:53 05/01/22 07:52 Labs: Laboratory Results - last 48 hr 04/30/22 05/01/22 05/01/22 07:12 07:52 09:08 Creatinine 0.68 Estim Creat Clear Calc 105.4 Estimated GFR > 60 POC Glucose 118 H 143 H Medications Medications Current Medications Acetaminophen (Acetaminophen 325 Mg Tablet) 975 mg PO Q6H PRN PRN Reason: Headache/Pain Mild Scale (1-3) Last Admin: 05/01/22 12:44 Dose: 975 mg Al Hydroxide/Mg Hydroxide (Magnesium Hydrox/Alum Hydrox 30 Ml Oral.Susp) 30 ml PO Q6H PRN PRN Reason: Heartburn/Nausea Last Admin: 05/01/22 00:50 Dose: 30 ml Aspirin (Aspirin Enteric Coated 81 Mg Tablet.) 81 mg PO DAILY [facility] Last Admin: 05/01/22 09:09 Dose: 81 mg Atorvastatin Calcium (Atorvastatin Calcium 40 Mg Tablet) 40 mg PO DAILY [facility] Last Admin: 05/01/22 09:09 Dose: 40 mg Buspirone HCl (Buspirone Hcl 10 Mg Tablet) 10 mg PO BID [facility] Last Admin: 05/01/22 09:09 Dose: 10 mg Cariprazine (Cariprazine Hcl 1.5 Mg Capsule) 4.5 mg PO BEDTIME [facility] Last Admin: 04/30/22 22:26 Dose: 4.5 mg Chlorpromazine HCl (Chlorpromazine Hcl 100 Mg Tablet) 200 mg PO BEDTIME [facility] Last Admin: 04/30/22 22:27 Dose: 200 mg Chlorpromazine HCl (Chlorpromazine Hcl 25 Mg Tablet) 50 mg PO TID PRN PRN Reason: psychosis and severe anxiety Last Admin: 05/01/22 14:37 Dose: 50 mg Docusate Sodium (Docusate Sodium 100 Mg/10 Ml Liquid) 50 mg PO BEDTIME PRN PRN Reason: Constipation Docusate Sodium (Docusate Sodium 100 Mg Capsule) 100 mg PO BEDTIME [facility] Last Admin: 04/30/22 22:27 Dose: 100 mg Ferrous Sulfate (Ferrous Sulfate 324 Mg Tablet.) 324 mg PO DAILY [facility] Last Admin: 05/01/22 09:10 Dose: 324 mg Fluticasone Propionate (Fluticasone Propionate Nasal 16 Gm [place]) 2 spray NOSTRIL-B DAILY [facility] Last Admin: 05/01/22 09:10 Dose: 2 spray Hydrocortisone (Hydrocortisone 1 % Cream 28.35 Gm Tube) 1 appl TOPICAL BID PRN; Protocol PRN Reason: adv. resp to nicotine patch Hydroxyzine HCl (Hydroxyzine Hcl 25 Mg Tablet) 25 mg PO BID PRN PRN Reason: Anxiety Last Admin: 05/01/22 16:28 Dose: 25 mg Ibuprofen (Ibuprofen 600 Mg Tablet) 600 mg PO Q8H PRN PRN Reason: cramping Magnesium Hydroxide (Milk Of Magnesia 30 Ml Oral.Susp) 30 ml PO DAILY PRN PRN Reason: Constipation Metformin HCl (Metformin Hcl 1,000 Mg Tablet) 1,000 mg PO BIDWM [facility] Last Admin: 05/01/22 16:11 Dose: 1,000 mg Methylphenidate HCl (Methylphenidate Hcl 5 Mg Tablet) 5 mg PO TID@0800,1200,1600 [facility] Last Admin: 05/01/22 16:11 Dose: 5 mg Multivitamins/Vitamin C (Multivitamin Tablet) 1 tab PO DAILY [facility] Last Admin: 05/01/22 09:09 Dose: 1 tab Nicotine (Nicotine 21 Mg Patch.Td24) 21 mg TRANSDERMA DAILY [facility] Last Admin: 05/01/22 09:10 Dose: 21 mg Nicotine Polacrilex (Nicotine Polacrilex Lozenge 4 Mg Lozenge) 4 mg BUCCAL Q2H PRN PRN Reason: Nicotine Cravings Last Admin: 05/01/22 17:24 Dose: 4 mg Omeprazole (Omeprazole 20 Mg Capsule.Dr) 20 mg PO BEDTIME [facility] Last Admin: 04/30/22 22:26 Dose: 20 mg Senna (Sennosides 8.6 Mg Tablet) 8.6 mg PO BEDTIME [facility] Last Admin: 04/30/22 22:27 Dose: 8.6 mg Sertraline HCl (Sertraline Hcl 50 Mg Tablet) 150 mg PO DAILY [facility] Last Admin: 05/01/22 09:10 Dose: 150 mg Trazodone HCl (Trazodone Hcl 50 Mg Tablet) 50 mg PO BEDTIME PRN PRN Reason: Insomnia Last Admin: 04/29/22 22:28 Dose: 50 mg Allergies Allergies Allergy/AdvReac Type Severity Reaction Status Date / Time amoxicillin [Amoxicillin] Allergy Mild HIVES Verified 04/24/22 09:32 baclofen [Baclofen] Allergy Unknown UNKNOWN Verified 04/24/22 09:32 bupropion [From Wellbutrin] Allergy Unknown UNKNOWN Verified 04/24/22 09:32 diphenhydramine Allergy Unknown UNKNOWN Verified 04/24/22 09:32 [From Benadryl] divalproex sodium Allergy Unknown UNKNOWN Verified 04/24/22 09:32 [From Depakote] fluoxetine [From Prozac] Allergy Unknown UNKNOWN Verified 04/24/22 09:32 Penicillins Allergy Unknown UNKNOWN Verified 04/24/22 09:32 nicotine patch Allergy Intermediate rash Uncoded 05/01/22 17:52 Assessment & Plan Assessment & Plan (1) Chronic posttraumatic stress disorder: Status: Acute Code(s): F43.12 - Post-traumatic stress disorder, chronic (2) Development disorder, mixed: Status: Acute Code(s): F88 - Other disorders of psychological development (3) Borderline personality disorder: Status: Acute Code(s): F60.3 - Borderline personality disorder (4) Schizoaffective disorder: Status: Acute Code(s): F25.9 - Schizoaffective disorder, unspecified Plan 04/27: restabilize on home meds, which she had not been taking consistently. 04/28: decrease morning and afternoon thorazine to 50 mg each dose (from 100 each), decrease HS prazosin dosing from 4 mg to 3 mg. otherwise continue regimen instituted yesterday. 04/29: Decrease Prazosin to 2 mg HS tonight. 04/30: Decrease Prazosin to 1 mg HS. 05/01: DC Prazosin. Add Thorazine PRN. If doesn't work, could try Haldol. Reason for contiued inpatient stay Substantial Risk for: inability to function and rapid decompensation Time Spent With Patient Time: Total time managing care of this patient today ____ minutes.
[2022-05-01] MEDS: Acetaminophen 325 MG TABLET 975 MG PO ×2 (12:44→20:55)
[2022-05-01] MEDS: Nicotine Polacrilex Lozenge 4 MG LOZENGE BUCCAL ×2 (17:24→19:32)
--- NOTE | 2022-05-01 17:52 | PM.EVENT ---
Event Note Date of Service: 05/05/22 Event Note: Pt experienced an adverse response to the nicotine patch. Discussed with pharmacy. Active ingredients include: 1. Acrylate adhesive 2. Aluminized polyester 3. Cellulose paper 4. Methacrylic acid Copolymer Ordered calamine lotion, antihistamine, cool compress prn and emolient prn Time Spent With Patient Time: Total time managing care of this patient today ____ minutes.
[2022-05-01] MEDS: Hydrocortisone 1 % Cream 28.35 GM TUBE 1 APPL TOPICAL (18:36)
[2022-05-01] MEDS: Docusate Sodium 100 MG CAPSULE PO (20:54)
[2022-05-01] MEDS: Sennosides 8.6 MG TABLET PO (20:55)
[2022-05-01] MEDS: Omeprazole 20 MG CAPSULE.DR PO (20:55)
[2022-05-01] MEDS: Cariprazine HCl 1.5 MG CAPSULE 4.5 MG PO (20:55)
[2022-05-01] MEDS: chlorproMAZINE HCl 100 MG TABLET 200 MG PO (20:55)
[2022-05-01] MEDS: traZODone HCL 50 MG TABLET PO (20:55)
[2022-05-01 21:00] VITALS: BP 116/68; PULSE 84; RESP 16; TEMP 36.5; O2SAT 97
[2022-05-02 09:11] LABS: Glucose, Whole Blood 223 mg/dL (60-115)
[2022-05-02 09:20] VITALS: BP 116/71; PULSE 86; RESP 18; TEMP 36.4; O2SAT 98
[2022-05-02] MEDS: Aspirin Enteric Coated 81 MG TABLET.DR PO (09:28)
[2022-05-02] MEDS: metFORMIN HCl 1,000 MG TABLET 1000 MG PO ×2 (09:28→18:05)
[2022-05-02] MEDS: Sertraline HCL 50 MG TABLET 150 MG PO (09:29)
[2022-05-02] MEDS: Multivitamin TABLET 1 TAB PO (09:29)
[2022-05-02] MEDS: busPIRone HCl 10 MG TABLET PO ×2 (09:30→21:33)
[2022-05-02] MEDS: Methylphenidate HCl 5 MG TABLET PO ×2 (09:30→12:33)
[2022-05-02] MEDS: Atorvastatin Calcium 40 MG TABLET PO (09:30)
[2022-05-02] MEDS: Ferrous Sulfate 324 MG TABLET.DR PO (09:31)
[2022-05-02] MEDS: Nicotine Polacrilex Lozenge 4 MG LOZENGE BUCCAL ×3 (11:06→15:57)
[2022-05-02 14:36] VITALS: BP 137/76; PULSE 87; RESP 18; O2SAT 97
--- NOTE | 2022-05-02 14:37 | PC.NURSE ---
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 Original Note: 1430 While in the shower, patient reports she lost her balance and fell. She stated she may have struck her head, but reports pain only left ankle. Left ankle: no swelling, no deformity, small area of redness outer aspect.
[2022-05-02] MEDS: Ibuprofen 600 MG TABLET PO (14:42)
--- NOTE | 2022-05-02 15:00 | PC.NURSE ---
Patient alert, oriented x3. Patient out in common area, reports she has been flexing her ankle and working on ROM. Affect even, no other concerns reported.
[2022-05-02 15:06] VITALS: BP 119/76; PULSE 94; RESP 18; O2SAT 96
--- NOTE | 2022-05-02 15:15 | PC.NURSE ---
Addendum entered by Yandy Hays 05/02/22 15:25: Clarification: Dr. Cochran texted by unit secreatry, message marked 'read' per staff. Original Note: Hospitalist texted.
[2022-05-02 15:44] VITALS: BP 119/76; PULSE 94; RESP 18; O2SAT 96
--- NOTE | 2022-05-02 15:45 | PC.NURSE ---
Patient out in milieu, reports her ankle is somewhat sore because she has been exercising in, denies any other concerns.
--- NOTE | 2022-05-02 15:56 | P.CONHOSP_ITS ---
History of Present Illness Data of Consult Service Date: 05/02/22 Requesting physician: Robel Talavera Primary Care Provider: [facility] HPI Reason for consult: Fall 41-year-old woman admitted to adult psych status post fall in the shower this afternoon, the fall was unwitnessed, patient denies loss of consciousness, prior headache, visual changes, nausea, vomiting, diarrhea. She reported she was able to yell for help. She reported that she started to have pain to the left side of her head with pressure and left-sided anterior ankle pain and redness. She was having some difficulty walking on the left lower extremity and she has chronic difficulty walking on the right lower extremity. She did not have any open wounds or visual trauma other than the slight redness to her left ankle, hemodynamically stable. Review of Systems Review of Systems: Denies any recent fever chills or decrease in appetite respiratory denies any shortness of breath coverage production cardiovascular Denies chest pain gastrointestinal denies any dysphagia abdominal pain nausea vomiting or diarr hea genitourinary denies any dysuria frequency or hematuria musculoskeletal see HPI neuropsych denies any weakness or seizures, reports left sided head pain and pressure all other systems reviewed are negative [facility] Medical History Diabetes Surgical History Status post VNS (vagus nerve stimulator) placement Social History Household Members: Other Household Members Other:: 4 roommates and staff Housing: Other Housing Other:: alf Do you presently have visiting nurse or other home services: No Alcohol intake: unknown Patient Tobacco Use Status: Current everyday Tobacco user Tobacco use type: Cigarette Cigarette Packs Per Day: 1 Cigarettes Per Day: 20 Years Smoked: 33 years Smoked in Last 30 Days: Yes e-Cigarette/Vaping Use: Former Use Patient Interested in Nicotine Replacement: Yes Patient Given Instructions on How to Stop Smoking: Yes Date Education Initiated: 04/26/22 Second Hand Smoke Exposure: No Use of substances other than those prescribed or required for medical reasons: Refusing to respond Substance Use Type: Marijuana Currently Displaying Signs/Symptoms of Drug Intoxication Withdrawal: No Advance Directives: No Advance Directives Information Provided: Yes Do you have thoughts of harming others: None Do you have a plan to hurt others: No Plan Recently lost weight without trying: Unsure Eating poorly because of decreased appetite: No Nutrition Risks: No Nutritional Risk Patient : No : No service: No Sexual orientation: Decline to Answer Meds Allergies Allergy/AdvReac Type Severity Reaction Status Date / Time amoxicillin [Amoxicillin] Allergy Mild HIVES Verified 04/24/22 09:32 baclofen [Baclofen] Allergy Unknown UNKNOWN Verified 04/24/22 09:32 bupropion [From Wellbutrin] Allergy Unknown UNKNOWN Verified 04/24/22 09:32 diphenhydramine Allergy Unknown UNKNOWN Verified 04/24/22 09:32 [From Benadryl] divalproex sodium Allergy Unknown UNKNOWN Verified 04/24/22 09:32 [From Depakote] fluoxetine [From Prozac] Allergy Unknown UNKNOWN Verified 04/24/22 09:32 Penicillins Allergy Unknown UNKNOWN Verified 04/24/22 09:32 nicotine patch Allergy Intermediate rash Uncoded 05/01/22 17:52 Active Medications: Current Medications Acetaminophen (Acetaminophen 325 Mg Tablet) 975 mg PO Q6H PRN PRN Reason: Headache/Pain Mild Scale (1-3) Last Admin: 05/01/22 20:55 Dose: 975 mg Al Hydroxide/Mg Hydroxide (Magnesium Hydrox/Alum Hydrox 30 Ml Oral.Susp) 30 ml PO Q6H PRN PRN Reason: Heartburn/Nausea Last Admin: 05/01/22 00:50 Dose: 30 ml Aspirin (Aspirin Enteric Coated 81 Mg Tablet.Dr) 81 mg PO DAILY [facility] Last Admin: 05/02/22 09:28 Dose: 81 mg Atorvastatin Calcium (Atorvastatin Calcium 40 Mg Tablet) 40 mg PO DAILY [facility] Last Admin: 05/02/22 09:30 Dose: 40 mg Buspirone HCl (Buspirone Hcl 10 Mg Tablet) 10 mg PO BID@899,1999 [facility] Calamine (Calamine/Zinc Oxide Lotion 177 Ml Bottle) 1 appl TOPICAL QID PRN; Protocol PRN Reason: Rash Cariprazine (Cariprazine Hcl 1.5 Mg Capsule) 4.5 mg PO DAILY@1999 [facility] Chlorpromazine HCl (Chlorpromazine Hcl 25 Mg Tablet) 50 mg PO TID PRN PRN Reason: psychosis and severe anxiety Last Admin: 05/01/22 14:37 Dose: 50 mg Chlorpromazine HCl (Chlorpromazine Hcl 100 Mg Tablet) 200 mg PO DAILY@1999 [facility] Docusate Sodium (Docusate Sodium 100 Mg/10 Ml Liquid) 50 mg PO BEDTIME PRN PRN Reason: Constipation Docusate Sodium (Docusate Sodium 100 Mg Capsule) 100 mg PO DAILY@1999 [facility] Ferrous Sulfate (Ferrous Sulfate 324 Mg Tablet.) 324 mg PO DAILY [facility] Last Admin: 05/02/22 09:31 Dose: 324 mg Fluticasone Propionate (Fluticasone Propionate Nasal 16 Gm [place]) 2 spray NOSTRIL-B DAILY [facility] Last Admin: 05/02/22 09:55 Dose: Not Given Hydrocortisone (Hydrocortisone 1 % Cream 28.35 Gm Tube) 1 appl TOPICAL BID PRN; Protocol PRN Reason: adv. resp to nicotine patch Last Admin: 05/01/22 18:36 Dose: 1 appl Hydroxyzine HCl (Hydroxyzine Hcl 25 Mg Tablet) 25 mg PO BID PRN PRN Reason: Anxiety Last Admin: 05/01/22 16:28 Dose: 25 mg Ibuprofen (Ibuprofen 600 Mg Tablet) 600 mg PO Q8H PRN PRN Reason: cramping Last Admin: 05/02/22 14:42 Dose: 600 mg Magnesium Hydroxide (Milk Of Magnesia 30 Ml Oral.Susp) 30 ml PO DAILY PRN PRN Reason: Constipation Metformin HCl (Metformin Hcl 1,000 Mg Tablet) 1,000 mg PO BIDWM [facility] Last Admin: 05/02/22 09:28 Dose: 1,000 mg Methylphenidate HCl (Methylphenidate Hcl 5 Mg Tablet) 5 mg PO BID@0800,1200 [facility] Last Admin: 05/02/22 12:33 Dose: 5 mg Multi-Ingred Cream/Lotion/Oil/Oint (Mineral Oil/Petrolatum,White 106 Gm Tube) 1 appl TOPICAL TID PRN; Protocol PRN Reason: nicotine patch rash Multivitamins/Vitamin C (Multivitamin Tablet) 1 tab PO DAILY [facility] Last Admin: 05/02/22 09:29 Dose: 1 tab Nicotine Polacrilex (Nicotine Polacrilex Lozenge 4 Mg Lozenge) 4 mg BUCCAL Q2H PRN PRN Reason: Nicotine Cravings Last Admin: 05/02/22 13:32 Dose: 4 mg Omeprazole (Omeprazole 20 Mg Capsule.) 20 mg PO DAILY@1999 [facility] Senna (Sennosides 8.6 Mg Tablet) 8.6 mg PO DAILY@1999 [facility] Sertraline HCl (Sertraline Hcl 50 Mg Tablet) 150 mg PO DAILY [facility] Last Admin: 05/02/22 09:29 Dose: 150 mg Trazodone HCl (Trazodone Hcl 50 Mg Tablet) 50 mg PO BEDTIME PRN PRN Reason: Insomnia Last Admin: 05/01/22 20:55 Dose: 50 mg Home Medications Medication Instructions Recorded Confirmed Last Taken Type aspirin 81 mg tablet,delayed 1 tab PO DAILY 11/25/21 04/24/22 Unknown History release buspirone 7.5 mg tablet 1 tab PO BID 11/25/21 04/24/22 Unknown History cariprazine 4.5 mg capsule 1 cap PO BEDTIME 11/25/21 04/24/22 Unknown History (Vraylar) chlorpromazine 100 mg tablet 100 mg PO BID@0800,1600 11/25/21 04/24/22 Unknown History chlorpromazine 100 mg tablet 200 mg PO BEDTIME 11/25/21 04/24/22 Unknown History ferrous sulfate 325 mg (65 mg 1 tab PO DAILY 11/25/21 04/24/22 Unknown History iron) tablet metformin 1,000 mg tablet 1 tab PO BID 11/25/21 04/24/22 Unknown History methylphenidate HCl 10 mg tablet 1 tab PO DAILY@0800,1300 11/25/21 04/24/22 Unknown History multivitamin 1 tab PO DAILY 11/25/21 04/24/22 Unknown History sennosides 8.6 mg tablet (senna) 1 tab PO DAILY PRN Constipation 11/25/21 04/24/22 Unknown History atorvastatin 40 mg tablet 1 tab PO DAILY 04/24/22 04/24/22 Unknown History cariprazine 4.5 mg capsule 1 cap PO BEDTIME 04/24/22 04/24/22 Unknown History (Vraylar) fluticasone propionate 50 1 - 2 spray intranasal DAILY PRN 04/24/22 04/24/22 Unknown History mcg/actuation nasal Dyspnea spray,suspension pantoprazole 40 mg tablet,delayed 1 tab PO BEDTIME 04/24/22 04/24/22 Unknown History release prazosin 1 mg capsule 4 cap PO BEDTIME 04/24/22 04/24/22 Unknown History sertraline 50 mg tablet 3 tab PO DAILY 04/24/22 04/24/22 Unknown History Physical Exam Vital Signs and Narrative: Vital Signs: Last Vital Signs Temp 97.6 F 05/02/22 09:20 Pulse 94 05/02/22 15:44 Resp 18 05/02/22 15:44 BP 119/76 05/02/22 15:44 Pulse Ox 96 05/02/22 15:44 O2 Del Method 05/02/22 15:44 BMI result Body Mass Index 31.5 Appearing in no acute distress lung sounds are clear to auscultation heart regular rate rhythm, clear S1, S2 positive bowel sounds, abdomen is soft, nontender neuro patient is alert x3, no focal deficits Left anterior ankle redness and mild swelling Cranial nerves 2-12 are grossly intact without focal deficits Results Labs CBC and Chem 7: 04/24/22 10:53 05/01/22 07:52 Labs: Laboratory Results - last 24 hr 05/02/22 09:05 POC Glucose 223 H Assessment and Plan (1) Unwitnessed fall: Status: Acute Plan 41-year-old woman an adult psych had a fall around 230 according to the patient, fall was unwitnessed while she was in the shower, she fell on the left side of her head and hit her left ankle as well. She denies loss of consciousness and was able to yell for help. Fall. Unwitnessed Stat brain CT to rule out acute abnormality/injury Stat left ankle x-ray for pain and redness May use Tylenol for pain Physical therapy evaluation for weakness to right extremity which is chronic and now acute left extremity weakness from pain Time Spent With Patient Time: Total time managing care of this patient today ____ minutes.
--- NOTE | 2022-05-02 16:01 | PC.NURSE ---
Patient seen by hospitalist, ice applied to ankle, walker obtained per patient request.
--- NOTE | 2022-05-02 16:03 | P.PNPSI_ITS ---
Subjective Subjective Date of Service: 05/02/22 Reason For Visit: HI Interim History: pt asking that ritalin be decreased as she has been feeling her stimulant and thorazine have been working at [employer]. c/o some broken sleep, but she is OK with it at the moment, as she is easily able to fall back asleep. per staff, pleasant. sleeping well. knee pain. anxious and depressed, asking for DBT skills worksheets. active and appropriate. worried she won't be able to return to [facility]. Mental Status Exam Mental Status Exam Narrative: adequately dressed and groomed. no PMA/PMR. cooperative. speech nml in rate, amount, loudness, tone, latency. thoughts linear and logical without evidence of delusions or paranoia. affect constricted, normo-intense, non-labile. mood better. no SI/HI/AVH expressed. Diagnostics Vital Signs (24Hr): Vital Signs - 24 hr 05/01/22 21:00 05/02/22 09:20 05/02/22 14:36 Temperature 97.7 F 97.6 F Pulse Rate 84 86 87 Respiratory Rate 16 18 18 Blood Pressure 116/68 116/71 137/76 Pulse Oximetry 97 98 97 Oxygen Delivery Method Room Air Room Air Room Air 05/02/22 15:06 05/02/22 15:44 Temperature Pulse Rate 94 94 Respiratory Rate 18 18 Blood Pressure 119/76 119/76 Pulse Oximetry 96 96 Oxygen Delivery Method Room Air Room Air BMI result Body Mass Index 31.5 Labs Results: 04/24/22 10:53 05/01/22 07:52 Labs: Laboratory Results - last 48 hr 05/01/22 05/01/22 05/02/22 07:52 09:08 09:05 Creatinine 0.68 Estim Creat Clear Calc 105.4 Estimated GFR > 60 POC Glucose 143 H 223 H Medications Medications Current Medications Acetaminophen (Acetaminophen 325 Mg Tablet) 975 mg PO Q6H PRN PRN Reason: Headache/Pain Mild Scale (1-3) Last Admin: 05/01/22 20:55 Dose: 975 mg Al Hydroxide/Mg Hydroxide (Magnesium Hydrox/Alum Hydrox 30 Ml Oral.Susp) 30 ml PO Q6H PRN PRN Reason: Heartburn/Nausea Last Admin: 05/01/22 00:50 Dose: 30 ml Aspirin (Aspirin Enteric Coated 81 Mg Tablet.Dr) 81 mg PO DAILY [facility] Last Admin: 05/02/22 09:28 Dose: 81 mg Atorvastatin Calcium (Atorvastatin Calcium 40 Mg Tablet) 40 mg PO DAILY [facility] Last Admin: 05/02/22 09:30 Dose: 40 mg Buspirone HCl (Buspirone Hcl 10 Mg Tablet) 10 mg PO BID@899,1999 [facility] Calamine (Calamine/Zinc Oxide Lotion 177 Ml Bottle) 1 appl TOPICAL QID PRN; Protocol PRN Reason: Rash Cariprazine (Cariprazine Hcl 1.5 Mg Capsule) 4.5 mg PO DAILY@1999 [facility] Chlorpromazine HCl (Chlorpromazine Hcl 25 Mg Tablet) 50 mg PO TID PRN PRN Reason: psychosis and severe anxiety Last Admin: 05/01/22 14:37 Dose: 50 mg Chlorpromazine HCl (Chlorpromazine Hcl 100 Mg Tablet) 200 mg PO DAILY@1999 [facility] Docusate Sodium (Docusate Sodium 100 Mg/10 Ml Liquid) 50 mg PO BEDTIME PRN PRN Reason: Constipation Docusate Sodium (Docusate Sodium 100 Mg Capsule) 100 mg PO DAILY@1999 [facility] Ferrous Sulfate (Ferrous Sulfate 324 Mg Tablet.) 324 mg PO DAILY [facility] Last Admin: 05/02/22 09:31 Dose: 324 mg Fluticasone Propionate (Fluticasone Propionate Nasal 16 Gm [place]) 2 spray NOSTRIL-B DAILY [facility] Last Admin: 05/02/22 09:55 Dose: Not Given Hydrocortisone (Hydrocortisone 1 % Cream 28.35 Gm Tube) 1 appl TOPICAL BID PRN; Protocol PRN Reason: adv. resp to nicotine patch Last Admin: 05/01/22 18:36 Dose: 1 appl Hydroxyzine HCl (Hydroxyzine Hcl 25 Mg Tablet) 25 mg PO BID PRN PRN Reason: Anxiety Last Admin: 05/01/22 16:28 Dose: 25 mg Ibuprofen (Ibuprofen 600 Mg Tablet) 600 mg PO Q8H PRN PRN Reason: cramping Last Admin: 05/02/22 14:42 Dose: 600 mg Magnesium Hydroxide (Milk Of Magnesia 30 Ml Oral.Susp) 30 ml PO DAILY PRN PRN Reason: Constipation Metformin HCl (Metformin Hcl 1,000 Mg Tablet) 1,000 mg PO BIDWM [facility] Last Admin: 05/02/22 09:28 Dose: 1,000 mg Methylphenidate HCl (Methylphenidate Hcl 5 Mg Tablet) 5 mg PO BID@0800,1200 [facility] Last Admin: 05/02/22 12:33 Dose: 5 mg Multi-Ingred Cream/Lotion/Oil/Oint (Mineral Oil/Petrolatum,White 106 Gm Tube) 1 appl TOPICAL TID PRN; Protocol PRN Reason: nicotine patch rash Multivitamins/Vitamin C (Multivitamin Tablet) 1 tab PO DAILY [facility] Last Admin: 05/02/22 09:29 Dose: 1 tab Nicotine Polacrilex (Nicotine Polacrilex Lozenge 4 Mg Lozenge) 4 mg BUCCAL Q2H PRN PRN Reason: Nicotine Cravings Last Admin: 05/02/22 15:57 Dose: 4 mg Omeprazole (Omeprazole 20 Mg Capsule.Dr) 20 mg PO DAILY@1999 [facility] Senna (Sennosides 8.6 Mg Tablet) 8.6 mg PO DAILY@1999 [facility] Sertraline HCl (Sertraline Hcl 50 Mg Tablet) 150 mg PO DAILY [facility] Last Admin: 05/02/22 09:29 Dose: 150 mg Trazodone HCl (Trazodone Hcl 50 Mg Tablet) 50 mg PO BEDTIME PRN PRN Reason: Insomnia Last Admin: 05/01/22 20:55 Dose: 50 mg Allergies Allergies Allergy/AdvReac Type Severity Reaction Status Date / Time amoxicillin [Amoxicillin] Allergy Mild HIVES Verified 04/24/22 09:32 baclofen [Baclofen] Allergy Unknown UNKNOWN Verified 04/24/22 09:32 bupropion [From Wellbutrin] Allergy Unknown UNKNOWN Verified 04/24/22 09:32 diphenhydramine Allergy Unknown UNKNOWN Verified 04/24/22 09:32 [From Benadryl] divalproex sodium Allergy Unknown UNKNOWN Verified 04/24/22 09:32 [From Depakote] fluoxetine [From Prozac] Allergy Unknown UNKNOWN Verified 04/24/22 09:32 Penicillins Allergy Unknown UNKNOWN Verified 04/24/22 09:32 nicotine patch Allergy Intermediate rash Uncoded 05/01/22 17:52 Assessment & Plan Assessment & Plan (1) Chronic posttraumatic stress disorder: Status: Acute Code(s): F43.12 - Post-traumatic stress disorder, chronic (2) Development disorder, mixed: Status: Acute Code(s): F88 - Other disorders of psychological development (3) Borderline personality disorder: Status: Acute Code(s): F60.3 - Borderline personality disorder (4) Schizoaffective disorder: Status: Acute Code(s): F25.9 - Schizoaffective disorder, unspecified (5) Unwitnessed fall: Status: Acute Code(s): R29.6 - Repeated falls Assessment and Plan: 41-year-old woman an adult psych had a fall around 230 according to the patient, fall was unwitnessed while she was in the shower, she fell on the left side of her head and hit her left ankle as well. She denies loss of consciousness and was able to yell for help. Fall. Unwitnessed Stat brain CT to rule out acute abnormality/injury Stat left ankle x-ray for pain and redness May use Tylenol for pain Physical therapy evaluation for weakness to right extremity which is chronic and now acute left extremity weakness from pain Plan 04/27:? restabilize on home meds, which she had not been taking consistently. 04/28: decrease morning and afternoon thorazine to 50 mg each dose (from 100 each), decrease HS prazosin dosing from 4 mg to 3 mg.? otherwise continue regimen instituted yesterday. 04/29: Decrease Prazosin to 2 mg HS tonight. 04/30: Decrease Prazosin to 1 mg HS. 05/01: DC Prazosin. Add Thorazine PRN. If doesn't work, could try Haldol. 05/02: c/o MNA, but she is OK with it at the moment. c/o overstimulation, asks for ritalin to be lowered, so it is decreased from 5 TID to 5 BID. fell in shower, head CT and foot xray pending. Reason for contiued inpatient stay Substantial Risk for: inability to function and rapid decompensation Time Spent With Patient Time: Total time managing care of this patient today __25__ minutes.
--- NOTE | 2022-05-02 16:19 | PC.NURSE ---
Pt educated on use of walker, is aware that the MD has ordered CT scan and xrays.
[2022-05-02] MEDS: chlorproMAZINE HCl 25 MG TABLET 50 MG PO (17:20)
[2022-05-02] MEDS: hydrOXYzine HCL 25 MG TABLET PO (18:44)
--- NOTE | 2022-05-02 18:50 | PC.NURSE ---
Late entry ~ 1745. Patient began banging side of her head in sensory room, stating she was trying to numb the thoughts. Patient encouraged to come to community room, staff sitting with patient drawing, encouraging coping skills. After dinner, patient stated I don't want to worry you, but I think the wires have shifted in my head. Dr Silva aware, patient given hydroxyzine, continues to draw with staff in community room. No further orders at this time.
[2022-05-02 21:30] VITALS: BP 125/58; PULSE 96; RESP 16; TEMP 36.6; O2SAT 96
[2022-05-02] MEDS: Omeprazole 20 MG CAPSULE.DR PO (21:33)
[2022-05-02] MEDS: traZODone HCL 50 MG TABLET PO (21:33)
[2022-05-02] MEDS: Sennosides 8.6 MG TABLET PO (21:33)
[2022-05-02] MEDS: Cariprazine HCl 1.5 MG CAPSULE 4.5 MG PO (21:33)
[2022-05-02] MEDS: chlorproMAZINE HCl 100 MG TABLET 200 MG PO (21:34)
[2022-05-02] MEDS: Docusate Sodium 100 MG CAPSULE PO (21:34)
[2022-05-03 08:40] VITALS: BP 117/74; PULSE 73; RESP 18; TEMP 36.6; O2SAT 97
[2022-05-03 08:42] LABS: Glucose, Whole Blood 127 mg/dL (60-115)
[2022-05-03] MEDS: Ibuprofen 600 MG TABLET PO (09:13)
[2022-05-03] MEDS: Methylphenidate HCl 5 MG TABLET PO ×3 (09:14→16:09)
[2022-05-03] MEDS: Aspirin Enteric Coated 81 MG TABLET.DR PO (09:14)
[2022-05-03] MEDS: Multivitamin TABLET 1 TAB PO (09:14)
[2022-05-03] MEDS: busPIRone HCl 10 MG TABLET PO ×2 (09:15→21:42)
[2022-05-03] MEDS: metFORMIN HCl 1,000 MG TABLET 1000 MG PO ×2 (09:15→16:09)
[2022-05-03] MEDS: Ferrous Sulfate 324 MG TABLET.DR PO (09:15)
[2022-05-03] MEDS: Sertraline HCL 50 MG TABLET 150 MG PO (09:16)
[2022-05-03] MEDS: Atorvastatin Calcium 40 MG TABLET PO (09:17)
[2022-05-03] MEDS: Nicotine Polacrilex Lozenge 4 MG LOZENGE BUCCAL ×3 (09:50→16:10)
[2022-05-03] MEDS: Fluticasone Propionate Nasal 16 GM SPRAY 2 SPRAY NOSTRIL-B (13:02)
[2022-05-03] MEDS: chlorproMAZINE HCl 100 MG TABLET PO (16:17)
--- NOTE | 2022-05-03 16:21 | P.PNPSI_ITS ---
Subjective Subjective Date of Service: 05/03/22 Reason For Visit: HI Interim History: calm, cooperative. states she banged her head yesterday afternoon and doesn't know why. discuss her having come off of all daytime thorazine and perhaps she needs to go back on it to remain stable. pt agrees, asks to go back on at 100 mg. then also asks that stimulant be increased back to prior dosing as well so she is not too sedated by thorazine. changes made. no other requests or complaints. per staff, anxious and depressed. attending groups. fell in shower and hit head, hurt ankle. CT NEG. denies SI/HI. feeling impulsive. +AH. banging head in afternoon. feels safe on unit. Mental Status Exam Mental Status Exam Narrative: adequately dressed and groomed. no PMA/PMR. cooperative. speech nml in rate, amount, loudness, tone, latency. thoughts linear and logical without evidence of delusions or paranoia. affect constricted, normo-intense, non-labile. mood demoralized. no SI/HI/AVH expressed. Diagnostics Vital Signs (24Hr): Vital Signs - 24 hr 05/02/22 21:30 05/03/22 08:40 Temperature 97.8 F 97.8 F Pulse Rate 96 73 Respiratory Rate 16 18 Blood Pressure 125/58 L 117/74 Pulse Oximetry 96 97 Oxygen Delivery Method Room Air Room Air BMI result Body Mass Index 31.5 Labs Results: 04/24/22 10:53 05/01/22 07:52 Labs: Laboratory Results - last 48 hr 05/02/22 05/03/22 09:05 08:33 POC Glucose 223 H 127 H Imaging Radiology Impressions: ITS Impressions Ankle X-Ray 05/02/22 16:45 IMPRESSION: 1. No acute fractures or malalignment. 2. Mild degenerative osteoarthritis. 3. Nonspecific soft tissue swelling. Head CT 05/02/22 16:49 IMPRESSION: Unchanged positioning of a left frontal approach neurostimulator device. No acute intracranial abnormality. Background of mild chronic microangiopathy and generalized cerebral volume loss. Medications Medications Current Medications Acetaminophen (Acetaminophen 325 Mg Tablet) 975 mg PO Q6H PRN PRN Reason: Headache/Pain Mild Scale (1-3) Last Admin: 05/01/22 20:55 Dose: 975 mg Al Hydroxide/Mg Hydroxide (Magnesium Hydrox/Alum Hydrox 30 Ml Oral.Susp) 30 ml PO Q6H PRN PRN Reason: Heartburn/Nausea Last Admin: 05/01/22 00:50 Dose: 30 ml Aspirin (Aspirin Enteric Coated 81 Mg Tablet.) 81 mg PO DAILY [facility] Last Admin: 05/03/22 09:14 Dose: 81 mg Atorvastatin Calcium (Atorvastatin Calcium 40 Mg Tablet) 40 mg PO DAILY [facility] Last Admin: 05/03/22 09:17 Dose: 40 mg Buspirone HCl (Buspirone Hcl 10 Mg Tablet) 10 mg PO BID@ [facility] Last Admin: 05/03/22 09:15 Dose: 10 mg Calamine (Calamine/Zinc Oxide Lotion 177 Ml Bottle) 1 appl TOPICAL QID PRN; Protocol PRN Reason: Rash Cariprazine (Cariprazine Hcl 1.5 Mg Capsule) 4.5 mg PO DAILY@1999 [facility] Last Admin: 05/02/22 21:33 Dose: 4.5 mg Chlorpromazine HCl (Chlorpromazine Hcl 100 Mg Tablet) 200 mg PO DAILY@1999 [facility] Last Admin: 05/02/22 21:34 Dose: 200 mg Chlorpromazine HCl (Chlorpromazine Hcl 100 Mg Tablet) 100 mg PO DAILY@0900,1600 [facility] Last Admin: 05/03/22 16:17 Dose: 100 mg Docusate Sodium (Docusate Sodium 100 Mg/10 Ml Liquid) 50 mg PO BEDTIME PRN PRN Reason: Constipation Docusate Sodium (Docusate Sodium 100 Mg Capsule) 100 mg PO DAILY@1999 [facility] Last Admin: 05/02/22 21:34 Dose: 100 mg Ferrous Sulfate (Ferrous Sulfate 324 Mg Tablet.) 324 mg PO DAILY [facility] Last Admin: 05/03/22 09:15 Dose: 324 mg Fluticasone Propionate (Fluticasone Propionate Nasal 16 Gm [place]) 2 spray NOSTRIL-B DAILY [facility] Last Admin: 05/03/22 13:02 Dose: 2 spray Hydrocortisone (Hydrocortisone 1 % Cream 28.35 Gm Tube) 1 appl TOPICAL BID PRN; Protocol PRN Reason: adv. resp to nicotine patch Last Admin: 05/01/22 18:36 Dose: 1 appl Hydroxyzine HCl (Hydroxyzine Hcl 25 Mg Tablet) 25 mg PO BID PRN PRN Reason: Anxiety Last Admin: 05/02/22 18:44 Dose: 25 mg Ibuprofen (Ibuprofen 600 Mg Tablet) 600 mg PO Q8H PRN PRN Reason: cramping Last Admin: 05/03/22 09:13 Dose: 600 mg Magnesium Hydroxide (Milk Of Magnesia 30 Ml Oral.Susp) 30 ml PO DAILY PRN PRN Reason: Constipation Metformin HCl (Metformin Hcl 1,000 Mg Tablet) 1,000 mg PO BIDWM [facility] Last Admin: 05/03/22 16:09 Dose: 1,000 mg Methylphenidate HCl (Methylphenidate Hcl 5 Mg Tablet) 5 mg PO TID@0800,1200,1600 [facility] Last Admin: 05/03/22 16:09 Dose: 5 mg Multi-Ingred Cream/Lotion/Oil/Oint (Mineral Oil/Petrolatum,White 106 Gm Tube) 1 appl TOPICAL TID PRN; Protocol PRN Reason: nicotine patch rash Multivitamins/Vitamin C (Multivitamin Tablet) 1 tab PO DAILY [facility] Last Admin: 05/03/22 09:14 Dose: 1 tab Nicotine Polacrilex (Nicotine Polacrilex Lozenge 4 Mg Lozenge) 4 mg BUCCAL Q2H PRN PRN Reason: Nicotine Cravings Last Admin: 05/03/22 16:10 Dose: 4 mg Omeprazole (Omeprazole 20 Mg Capsule.Dr) 20 mg PO DAILY@1999 [facility] Last Admin: 05/02/22 21:33 Dose: 20 mg Senna (Sennosides 8.6 Mg Tablet) 8.6 mg PO DAILY@1999 [facility] Last Admin: 05/02/22 21:33 Dose: 8.6 mg Sertraline HCl (Sertraline Hcl 50 Mg Tablet) 150 mg PO DAILY [facility] Last Admin: 05/03/22 09:16 Dose: 150 mg Trazodone HCl (Trazodone Hcl 50 Mg Tablet) 50 mg PO BEDTIME PRN PRN Reason: Insomnia Last Admin: 05/02/22 21:33 Dose: 50 mg Allergies Allergies Allergy/AdvReac Type Severity Reaction Status Date / Time amoxicillin [Amoxicillin] Allergy Mild HIVES Verified 04/24/22 09:32 baclofen [Baclofen] Allergy Unknown UNKNOWN Verified 04/24/22 09:32 bupropion [From Wellbutrin] Allergy Unknown UNKNOWN Verified 04/24/22 09:32 diphenhydramine Allergy Unknown UNKNOWN Verified 04/24/22 09:32 [From Benadryl] divalproex sodium Allergy Unknown UNKNOWN Verified 04/24/22 09:32 [From Depakote] fluoxetine [From Prozac] Allergy Unknown UNKNOWN Verified 04/24/22 09:32 Penicillins Allergy Unknown UNKNOWN Verified 04/24/22 09:32 nicotine patch Allergy Intermediate rash Uncoded 05/01/22 17:52 Assessment & Plan Assessment & Plan (1) Unwitnessed fall: Status: Acute Code(s): R29.6 - Repeated falls Assessment and Plan: 41-year-old woman an adult psych had a fall around 230 according to the patient, fall was unwitnessed while she was in the shower, she fell on the left side of her head and hit her left ankle as well. She denies loss of consciousness and was able to yell for help. Fall. Unwitnessed Stat brain CT to rule out acute abnormality/injury Stat left ankle x-ray for pain and redness May use Tylenol for pain Physical therapy evaluation for weakness to right extremity which is chronic and now acute left extremity weakness from pain (2) Chronic posttraumatic stress disorder: Status: Acute Code(s): F43.12 - Post-traumatic stress disorder, chronic (3) Development disorder, mixed: Status: Acute Code(s): F88 - Other disorders of psychological development (4) Schizoaffective disorder: Status: Acute Code(s): F25.9 - Schizoaffective disorder, unspecified (5) Borderline personality disorder: Status: Acute Code(s): F60.3 - Borderline personality disorder Plan 04/27:? restabilize on home meds, which she had not been taking consistently. 04/28: decrease morning and afternoon thorazine to 50 mg each dose (from 100 each), decrease HS prazosin dosing from 4 mg to 3 mg.? otherwise continue regimen instituted yesterday. 04/29: Decrease Prazosin to 2 mg HS tonight. 04/30: Decrease Prazosin to 1 mg HS. 05/01: DC Prazosin. Add Thorazine PRN. If doesn't work, could try Haldol. 05/02: c/o MNA, but she is OK with it at the moment.? c/o overstimulation, asks for ritalin to be lowered, so it is decreased from 5 TID to 5 BID.? fell in shower, head CT and foot xray pending. 05/03: feling more emotionally dysregulated, banging head yesterday afternoon. agrees to reinstate thorazine 100 BID @ morning and afternoon and to return stimulant dosing to TID to compensate. Patient educated on: medication risk/benefits Reason for contiued inpatient stay Substantial Risk for: harm to self, harm to others, inability to function and rapid decompensation Time Spent With Patient Time: Total time managing care of this patient today __25__ minutes.
[2022-05-03 19:50] VITALS: BP 119/66; PULSE 102; RESP 16; TEMP 36.4; O2SAT 97
[2022-05-03] MEDS: chlorproMAZINE HCl 100 MG TABLET 200 MG PO (21:41)
[2022-05-03] MEDS: Cariprazine HCl 1.5 MG CAPSULE 4.5 MG PO (21:42)
[2022-05-03] MEDS: Sennosides 8.6 MG TABLET PO (21:42)
[2022-05-03] MEDS: Omeprazole 20 MG CAPSULE.DR PO (21:42)
[2022-05-03] MEDS: traZODone HCL 50 MG TABLET PO (21:42)
[2022-05-03] MEDS: Docusate Sodium 100 MG CAPSULE PO (21:42)
[2022-05-03] MEDS: hydrOXYzine HCL 25 MG TABLET PO (23:08)
[2022-05-03] MEDS: Acetaminophen 325 MG TABLET 975 MG PO (23:08)
[2022-05-04 05:50] LABS: Glucose, Whole Blood 127 mg/dL (60-115)
[2022-05-04] MEDS: Nicotine Polacrilex Lozenge 4 MG LOZENGE BUCCAL ×3 (07:18→21:32)
[2022-05-04 08:44] VITALS: BP 110/78; PULSE 96; RESP 18; TEMP 36.6; O2SAT 97
[2022-05-04] MEDS: Ferrous Sulfate 324 MG TABLET.DR PO (08:45)
[2022-05-04] MEDS: Atorvastatin Calcium 40 MG TABLET PO (08:45)
[2022-05-04] MEDS: Aspirin Enteric Coated 81 MG TABLET.DR PO (08:45)
[2022-05-04] MEDS: Sertraline HCL 50 MG TABLET 150 MG PO (08:45)
[2022-05-04] MEDS: busPIRone HCl 10 MG TABLET PO ×2 (08:46→20:14)
[2022-05-04] MEDS: metFORMIN HCl 1,000 MG TABLET 1000 MG PO ×2 (08:46→16:35)
[2022-05-04] MEDS: Methylphenidate HCl 5 MG TABLET PO ×2 (08:46→16:35)
[2022-05-04] MEDS: Multivitamin TABLET 1 TAB PO (08:47)
[2022-05-04] MEDS: chlorproMAZINE HCl 100 MG TABLET PO ×2 (08:54→16:38)
[2022-05-04] MEDS: Fluticasone Propionate Nasal 16 GM SPRAY 2 SPRAY NOSTRIL-B (08:54)
[2022-05-04] MEDS: Acetaminophen 325 MG TABLET 975 MG PO ×2 (08:54→20:14)
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
[2022-05-04] MEDS: Methylphenidate HCl 5 MG TABLET 10 MG PO (13:53)
[2022-05-04 13:59] VITALS: BMI 33.3
[2022-05-04 19:58] VITALS: BP 114/62; PULSE 97; RESP 16; TEMP 36.7; O2SAT 99
[2022-05-04] MEDS: Docusate Sodium 100 MG CAPSULE PO (20:14)
[2022-05-04] MEDS: Sennosides 8.6 MG TABLET PO (20:14)
[2022-05-04] MEDS: hydrOXYzine HCL 25 MG TABLET PO (20:14)
[2022-05-04] MEDS: chlorproMAZINE HCl 100 MG TABLET 200 MG PO (20:14)
[2022-05-04] MEDS: Omeprazole 20 MG CAPSULE.DR PO (20:15)
[2022-05-04] MEDS: Cariprazine HCl 1.5 MG CAPSULE 4.5 MG PO (20:15)
[2022-05-05] MEDS: Ibuprofen 600 MG TABLET PO (00:38)
[2022-05-05] MEDS: Nicotine Polacrilex Lozenge 4 MG LOZENGE BUCCAL ×3 (08:20→21:43)
[2022-05-05 08:30] VITALS: BP 124/64; PULSE 98; TEMP 36.7; O2SAT 97
[2022-05-05 08:32] LABS: Glucose, Whole Blood 152 mg/dL (60-115)
[2022-05-05] MEDS: Sertraline HCL 50 MG TABLET 150 MG PO (08:37)
[2022-05-05] MEDS: Methylphenidate HCl 5 MG TABLET 10 MG PO ×2 (08:38→13:09)
[2022-05-05] MEDS: metFORMIN HCl 1,000 MG TABLET 1000 MG PO ×2 (08:38→16:52)
[2022-05-05] MEDS: Atorvastatin Calcium 40 MG TABLET PO (08:38)
[2022-05-05] MEDS: Aspirin Enteric Coated 81 MG TABLET.DR PO (08:38)
[2022-05-05] MEDS: busPIRone HCl 10 MG TABLET PO ×2 (08:39→21:00)
[2022-05-05] MEDS: Ferrous Sulfate 324 MG TABLET.DR PO (08:39)
[2022-05-05] MEDS: Multivitamin TABLET 1 TAB PO (08:42)
[2022-05-05] MEDS: Acetaminophen 325 MG TABLET 975 MG PO ×2 (08:43→21:04)
[2022-05-05] MEDS: chlorproMAZINE HCl 100 MG TABLET PO ×2 (08:43→16:52)
[2022-05-05] MEDS: TiZANidine HCL 4 MG TABLET PO ×3 (11:40→20:59)
--- NOTE | 2022-05-05 12:15 | P.PNPSI_ITS ---
Subjective Subjective Date of Service: 05/05/22 Reason For Visit: HI Interim History: calm, cooperative. more alert than yesterday, appears more relaxed. agrees her present regimen is better than previous during this stay and she would like to continue. some anxiety about meeting with [facility] staff sunday, concern she is not yet ready for discharge. MD and pt discuss taking it a day at a time and that there are still 5 days or so prior to likely discharge. asks for muscle relaxant, c/o spasm in her upper leg which is causing her pain and not relieved by NSAIDs. endorsing AH but mood pretty good. per staff, active. depressed, racing thoughts. POC 127 yesterday. slept about 5 hours. planning for respite discharge next week. Mental Status Exam Mental Status Exam Narrative: adequately dressed and groomed. alert. no PMA/PMR. cooperative. speech nml in rate, amount, loudness, tone, latency. thoughts linear and logical without evidence of delusions or paranoia. affect constricted, normo-intense, non- labile. mood pretty good. +AH. no SI/HI/VH expressed. Diagnostics Vital Signs (24Hr): Vital Signs - 24 hr 05/04/22 19:58 05/05/22 08:30 Temperature 98.1 F 98.1 F Pulse Rate 97 98 Respiratory Rate 16 Blood Pressure 114/62 124/64 Pulse Oximetry 99 97 Oxygen Delivery Method Room Air Room Air BMI result Body Mass Index 33.3 Labs 04/24/22 10:53 05/01/22 07:52 Labs: Laboratory Results - last 48 hr 05/04/22 05/05/22 05:47 08:28 POC Glucose 127 H 152 H Imaging Radiology Impressions: ITS Impressions Ankle X-Ray 05/02/22 16:45 IMPRESSION: 1. No acute fractures or malalignment. 2. Mild degenerative osteoarthritis. 3. Nonspecific soft tissue swelling. Head CT 05/02/22 16:49 IMPRESSION: Unchanged positioning of a left frontal approach neurostimulator device. No acute intracranial abnormality. Background of mild chronic microangiopathy and generalized cerebral volume loss. Medications Medications Current Medications Acetaminophen (Acetaminophen 325 Mg Tablet) 975 mg PO Q6H PRN PRN Reason: Headache/Pain Mild Scale (1-3) Last Admin: 05/05/22 08:43 Dose: 975 mg Al Hydroxide/Mg Hydroxide (Magnesium Hydrox/Alum Hydrox 30 Ml Oral.Susp) 30 ml PO Q6H PRN PRN Reason: Heartburn/Nausea Last Admin: 05/01/22 00:50 Dose: 30 ml Aspirin (Aspirin Enteric Coated 81 Mg Tablet.) 81 mg PO DAILY [facility] Last Admin: 05/05/22 08:38 Dose: 81 mg Atorvastatin Calcium (Atorvastatin Calcium 40 Mg Tablet) 40 mg PO DAILY [facility] Last Admin: 05/05/22 08:38 Dose: 40 mg Buspirone HCl (Buspirone Hcl 10 Mg Tablet) 10 mg PO BID@ [facility] Last Admin: 05/05/22 08:39 Dose: 10 mg Calamine (Calamine/Zinc Oxide Lotion 177 Ml Bottle) 1 appl TOPICAL QID PRN; Protocol PRN Reason: Rash Cariprazine (Cariprazine Hcl 1.5 Mg Capsule) 4.5 mg PO DAILY@1999 [facility] Last Admin: 05/04/22 20:15 Dose: 4.5 mg Chlorpromazine HCl (Chlorpromazine Hcl 100 Mg Tablet) 200 mg PO DAILY@1999 [facility] Last Admin: 05/04/22 20:14 Dose: 200 mg Chlorpromazine HCl (Chlorpromazine Hcl 100 Mg Tablet) 100 mg PO DAILY@0900,1600 [facility] Last Admin: 05/05/22 08:43 Dose: 100 mg Docusate Sodium (Docusate Sodium 100 Mg/10 Ml Liquid) 50 mg PO BEDTIME PRN PRN Reason: Constipation Docusate Sodium (Docusate Sodium 100 Mg Capsule) 100 mg PO DAILY@1999 [facility] Last Admin: 05/04/22 20:14 Dose: 100 mg Ferrous Sulfate (Ferrous Sulfate 324 Mg Tablet.) 324 mg PO DAILY [facility] Last Admin: 05/05/22 08:39 Dose: 324 mg Fluticasone Propionate (Fluticasone Propionate Nasal 16 Gm [place]) 2 spray NOSTRIL-B DAILY [facility] Last Admin: 05/05/22 10:08 Dose: Not Given Hydrocortisone (Hydrocortisone 1 % Cream 28.35 Gm Tube) 1 appl TOPICAL BID PRN; Protocol PRN Reason: adv. resp to nicotine patch Last Admin: 05/01/22 18:36 Dose: 1 appl Hydroxyzine HCl (Hydroxyzine Hcl 25 Mg Tablet) 25 mg PO BID PRN PRN Reason: Anxiety Last Admin: 05/04/22 20:14 Dose: 25 mg Ibuprofen (Ibuprofen 600 Mg Tablet) 600 mg PO Q8H PRN PRN Reason: cramping Last Admin: 05/05/22 00:38 Dose: 600 mg Magnesium Hydroxide (Milk Of Magnesia 30 Ml Oral.Susp) 30 ml PO DAILY PRN PRN Reason: Constipation Metformin HCl (Metformin Hcl 1,000 Mg Tablet) 1,000 mg PO BIDWM [facility] Last Admin: 05/05/22 08:38 Dose: 1,000 mg Methylphenidate HCl (Methylphenidate Hcl 5 Mg Tablet) 10 mg PO BID@0800,1300 [facility] Last Admin: 05/05/22 08:38 Dose: 10 mg Methylphenidate HCl (Methylphenidate Hcl 5 Mg Tablet) 5 mg PO DAILY@1600 [facility] Last Admin: 05/04/22 16:35 Dose: 5 mg Multi-Ingred Cream/Lotion/Oil/Oint (Mineral Oil/Petrolatum,White 106 Gm Tube) 1 appl TOPICAL TID PRN; Protocol PRN Reason: nicotine patch rash Multivitamins/Vitamin C (Multivitamin Tablet) 1 tab PO DAILY [facility] Last Admin: 05/05/22 08:42 Dose: 1 tab Nicotine Polacrilex (Nicotine Polacrilex Lozenge 4 Mg Lozenge) 4 mg BUCCAL Q2H PRN PRN Reason: Nicotine Cravings Last Admin: 05/05/22 08:20 Dose: 4 mg Omeprazole (Omeprazole 20 Mg Capsule.Dr) 20 mg PO DAILY@1999 [facility] Last Admin: 05/04/22 20:15 Dose: 20 mg Senna (Sennosides 8.6 Mg Tablet) 8.6 mg PO DAILY@1999 [facility] Last Admin: 05/04/22 20:14 Dose: 8.6 mg Sertraline HCl (Sertraline Hcl 50 Mg Tablet) 150 mg PO DAILY [facility] Last Admin: 05/05/22 08:37 Dose: 150 mg Tizanidine HCl (Tizanidine Hcl 4 Mg Tablet) 4 mg PO TID PRN PRN Reason: spasm Last Admin: 05/05/22 11:40 Dose: 4 mg Trazodone HCl (Trazodone Hcl 50 Mg Tablet) 50 mg PO BEDTIME PRN PRN Reason: Insomnia Last Admin: 05/03/22 21:42 Dose: 50 mg Allergies Allergies Allergy/AdvReac Type Severity Reaction Status Date / Time amoxicillin [Amoxicillin] Allergy Mild HIVES Verified 04/24/22 09:32 baclofen [Baclofen] Allergy Unknown UNKNOWN Verified 04/24/22 09:32 bupropion [From Wellbutrin] Allergy Unknown UNKNOWN Verified 04/24/22 09:32 diphenhydramine Allergy Unknown UNKNOWN Verified 04/24/22 09:32 [From Benadryl] divalproex sodium Allergy Unknown UNKNOWN Verified 04/24/22 09:32 [From Depakote] fluoxetine [From Prozac] Allergy Unknown UNKNOWN Verified 04/24/22 09:32 Penicillins Allergy Unknown UNKNOWN Verified 04/24/22 09:32 nicotine patch Allergy Intermediate rash Uncoded 05/01/22 17:52 Assessment & Plan Assessment & Plan (1) Unwitnessed fall: Status: Acute Code(s): R29.6 - Repeated falls Assessment and Plan: 41-year-old woman an adult psych had a fall around 230 according to the patient, fall was unwitnessed while she was in the shower, she fell on the left side of her head and hit her left ankle as well. She denies loss of consciousness and was able to yell for help. Fall. Unwitnessed Stat brain CT to rule out acute abnormality/injury Stat left ankle x-ray for pain and redness May use Tylenol for pain Physical therapy evaluation for weakness to right extremity which is chronic and now acute left extremity weakness from pain (2) Chronic posttraumatic stress disorder: Status: Acute Code(s): F43.12 - Post-traumatic stress disorder, chronic (3) Development disorder, mixed: Status: Acute Code(s): F88 - Other disorders of psychological development (4) Schizoaffective disorder: Status: Acute Code(s): F25.9 - Schizoaffective disorder, unspecified (5) Borderline personality disorder: Status: Acute Code(s): F60.3 - Borderline personality disorder Plan 04/27:? restabilize on home meds, which she had not been taking consistently. 04/28: decrease morning and afternoon thorazine to 50 mg each dose (from 100 each), decrease HS prazosin dosing from 4 mg to 3 mg.? otherwise continue regimen instituted yesterday. 04/29: Decrease Prazosin to 2 mg HS tonight. 04/30: Decrease Prazosin to 1 mg HS. 05/01: DC Prazosin. Add Thorazine PRN. If doesn't work, could try Haldol. 05/02: c/o MNA, but she is OK with it at the moment.? c/o overstimulation, asks for ritalin to be lowered, so it is decreased from 5 TID to 5 BID.? fell in shower, head CT and foot xray pending. 05/03: feeling more emotionally dysregulated, banging head yesterday afternoon. agrees to reinstate thorazine 100 BID @ morning and afternoon and to return stimulant dosing to TID to compensate. 05/04: somewhat sedated, but she feels it is preferable to feeling out of control. asks to return stimulant to 10-10-5, which is essentially what she had been on prior to admission, in order to balance the recently increased thorazine dosing during the day. 05/05: more alert yet less emotionally troubled and psychotic than prior. continue current regimen. [facility] mtg sunday, discharge to respite some time next week. pt anxious, feeling not quite ready for discharge. Patient educated on: diagnosis and medication risk/benefits Reason for contiued inpatient stay Substantial Risk for: harm to self, harm to others, inability to function and ra pid decompensation Time Spent With Patient Time: Total time managing care of this patient today _25___ minutes.
[2022-05-05] MEDS: hydrOXYzine HCL 25 MG TABLET PO ×2 (12:23→20:57)
[2022-05-05] MEDS: HaloperidoL 5 MG TABLET PO ×3 (14:40→21:54)
[2022-05-05] MEDS: Methylphenidate HCl 5 MG TABLET PO (16:52)
[2022-05-05] MEDS: Omeprazole 20 MG CAPSULE.DR PO (20:57)
[2022-05-05] MEDS: Cariprazine HCl 1.5 MG CAPSULE 4.5 MG PO (20:57)
[2022-05-05] MEDS: traZODone HCL 50 MG TABLET PO (20:57)
[2022-05-05] MEDS: Sennosides 8.6 MG TABLET PO (20:57)
[2022-05-05] MEDS: Docusate Sodium 100 MG CAPSULE PO (20:58)
[2022-05-05] MEDS: chlorproMAZINE HCl 100 MG TABLET 200 MG PO (21:00)
--- NOTE | 2022-05-06 15:10 | HO.PSYCHPN ---
Subjective Subjective Date of Service: 05/06/22 Reason For Visit: HI Subjective Notes: Conditional Voluntary Interim History: Pt mostly in bed, minimally interacting with peers or staff. She declined medications stating she was not feeling well. She denies physical concerns. She denies VH/AH. She denies HI/SI. Medication Compliance: Intermittent Review of Systems Review of Systems Denies any recent fever chills or decrease in appetite respiratory denies any shortness of breath coverage production cardiovascular Denies chest pain gastrointestinal denies any dysphagia abdominal pain nausea vomiting or diarrhea genitourinary denies any dysuria frequency or hematuria musculoskeletal see HPI neuropsych denies any weakness or seizures, reports left sided head pain and pressure all other systems reviewed are negative Yes all other systems are reviewed and are negative Mental Status Exam Mental Status Exam Narrative: adequately dressed and groomed. alert. no PMA/PMR. cooperative. speech nml in rate, amount, loudness, tone, latency. thoughts linear and logical without evidence of delusions or paranoia. affect constricted, normo-intense, non-labile. mood not good. +AH. no SI/HI/VH expressed. Diagnostics Vital Signs (24Hr): Vital Signs - 24 hr 05/07/22 10:15 05/07/22 20:00 Temperature 98.2 F 98.0 F Pulse Rate 93 95 Respiratory Rate 16 16 Blood Pressure 123/59 L 118/71 Pulse Oximetry 98 99 Oxygen Delivery Method Room Air Room Air BMI result Body Mass Index 33.3 Labs 04/24/22 10:53 05/01/22 07:52 Labs: Laboratory Results - last 48 hr 05/07/22 10:13 POC Glucose 176 H Imaging Radiology Impressions: ITS Impressions Ankle X-Ray 05/02/22 16:45 IMPRESSION: 1. No acute fractures or malalignment. 2. Mild degenerative osteoarthritis. 3. Nonspecific soft tissue swelling. Head CT 05/02/22 16:49 IMPRESSION: Unchanged positioning of a left frontal approach neurostimulator device. No acute intracranial abnormality. Background of mild chronic microangiopathy and generalized cerebral volume loss. Medications Medications Current Medications Acetaminophen (Acetaminophen 325 Mg Tablet) 975 mg PO Q6H PRN PRN Reason: Headache/Pain Mild Scale (1-3) Last Admin: 05/07/22 12:33 Dose: 975 mg Al Hydroxide/Mg Hydroxide (Magnesium Hydrox/Alum Hydrox 30 Ml Oral.Susp) 30 ml PO Q6H PRN PRN Reason: Heartburn/Nausea Last Admin: 05/01/22 00:50 Dose: 30 ml Aspirin (Aspirin Enteric Coated 81 Mg Tablet.) 81 mg PO DAILY [facility] Last Admin: 05/07/22 10:15 Dose: 81 mg Atorvastatin Calcium (Atorvastatin Calcium 40 Mg Tablet) 40 mg PO DAILY [facility] Last Admin: 05/07/22 10:15 Dose: 40 mg Buspirone HCl (Buspirone Hcl 10 Mg Tablet) 10 mg PO BID@ [facility] Last Admin: 05/07/22 20:25 Dose: 10 mg Calamine (Calamine/Zinc Oxide Lotion 177 Ml Bottle) 1 appl TOPICAL QID PRN; Protocol PRN Reason: Rash Cariprazine (Cariprazine Hcl 1.5 Mg Capsule) 4.5 mg PO DAILY@1999 [facility] Last Admin: 05/07/22 20:24 Dose: 4.5 mg Chlorpromazine HCl (Chlorpromazine Hcl 100 Mg Tablet) 200 mg PO DAILY@1999 [facility] Last Admin: 05/07/22 20:25 Dose: 200 mg Chlorpromazine HCl (Chlorpromazine Hcl 100 Mg Tablet) 100 mg PO DAILY@0900,1600 [facility] Last Admin: 05/07/22 17:03 Dose: Not Given Docusate Sodium (Docusate Sodium 100 Mg/10 Ml Liquid) 50 mg PO BEDTIME PRN PRN Reason: Constipation Docusate Sodium (Docusate Sodium 100 Mg Capsule) 100 mg PO DAILY@1999 [facility] Last Admin: 05/07/22 20:25 Dose: 100 mg Ferrous Sulfate (Ferrous Sulfate 324 Mg Tablet.) 324 mg PO DAILY [facility] Last Admin: 05/07/22 10:16 Dose: 324 mg Fluticasone Propionate (Fluticasone Propionate Nasal 16 Gm [place]) 2 spray NOSTRIL-B DAILY [facility] Last Admin: 05/07/22 10:24 Dose: 2 spray Haloperidol (Haloperidol 5 Mg Tablet) 5 mg PO Q4H PRN PRN Reason: agitation Last Admin: 05/07/22 20:20 Dose: 5 mg Hydrocortisone (Hydrocortisone 1 % Cream 28.35 Gm Tube) 1 appl TOPICAL BID PRN; Protocol PRN Reason: adv. resp to nicotine patch Last Admin: 05/01/22 18:36 Dose: 1 appl Hydroxyzine HCl (Hydroxyzine Hcl 25 Mg Tablet) 25 mg PO BID PRN PRN Reason: Anxiety Last Admin: 05/05/22 20:57 Dose: 25 mg Ibuprofen (Ibuprofen 600 Mg Tablet) 600 mg PO Q8H PRN PRN Reason: cramping Last Admin: 05/05/22 00:38 Dose: 600 mg Magnesium Hydroxide (Milk Of Magnesia 30 Ml Oral.Susp) 30 ml PO DAILY PRN PRN Reason: Constipation Metformin HCl (Metformin Hcl 1,000 Mg Tablet) 1,000 mg PO BIDWM [facility] Last Admin: 05/07/22 17:03 Dose: Not Given Methylphenidate HCl (Methylphenidate Hcl 5 Mg Tablet) 10 mg PO BID@0800,1300 [facility] Last Admin: 05/07/22 12:33 Dose: 10 mg Methylphenidate HCl (Methylphenidate Hcl 5 Mg Tablet) 5 mg PO DAILY@1600 [facility] Last Admin: 05/07/22 17:03 Dose: Not Given Multi-Ingred Cream/Lotion/Oil/Oint (Mineral Oil/Petrolatum,White 106 Gm Tube) 1 appl TOPICAL TID PRN; Protocol PRN Reason: nicotine patch rash Multivitamins/Vitamin C (Multivitamin Tablet) 1 tab PO DAILY [facility] Last Admin: 05/07/22 10:16 Dose: 1 tab Nicotine Polacrilex (Nicotine Polacrilex Lozenge 4 Mg Lozenge) 4 mg BUCCAL Q2H PRN PRN Reason: Nicotine Cravings Last Admin: 05/08/22 05:04 Dose: 4 mg Omeprazole (Omeprazole 20 Mg Capsule.Dr) 20 mg PO DAILY@1999 [facility] Last Admin: 05/07/22 20:25 Dose: 20 mg Senna (Sennosides 8.6 Mg Tablet) 8.6 mg PO DAILY@1999 [facility] Last Admin: 05/07/22 20:25 Dose: 8.6 mg Sertraline HCl (Sertraline Hcl 50 Mg Tablet) 150 mg PO DAILY [facility] Last Admin: 05/07/22 10:15 Dose: 150 mg Tizanidine HCl (Tizanidine Hcl 4 Mg Tablet) 4 mg PO TID PRN PRN Reason: spasm Last Admin: 05/08/22 05:54 Dose: 4 mg Trazodone HCl (Trazodone Hcl 50 Mg Tablet) 50 mg PO BEDTIME PRN PRN Reason: Insomnia Last Admin: 05/07/22 21:50 Dose: 50 mg Allergies Allergies Allergy/AdvReac Type Severity Reaction Status Date / Time amoxicillin [Amoxicillin] Allergy Mild HIVES Verified 04/24/22 09:32 baclofen [Baclofen] Allergy Unknown UNKNOWN Verified 04/24/22 09:32 bupropion [From Wellbutrin] Allergy Unknown UNKNOWN Verified 04/24/22 09:32 diphenhydramine Allergy Unknown UNKNOWN Verified 04/24/22 09:32 [From Benadryl] divalproex sodium Allergy Unknown UNKNOWN Verified 04/24/22 09:32 [From Depakote] fluoxetine [From Prozac] Allergy Unknown UNKNOWN Verified 04/24/22 09:32 Penicillins Allergy Unknown UNKNOWN Verified 04/24/22 09:32 nicotine patch Allergy Intermediate rash Uncoded 05/01/22 17:52 Assessment & Plan Assessment & Plan (1) Chronic posttraumatic stress disorder: Status: Acute Code(s): F43.12 - Post-traumatic stress disorder, chronic (2) Unwitnessed fall: Status: Acute Code(s): R29.6 - Repeated falls Assessment and Plan: 41-year-old woman an adult psych had a fall around 230 according to the patient, fall was unwitnessed while she was in the shower, she fell on the left side of her head and hit her left ankle as well. She denies loss of consciousness and was able to yell for help. Fall. Unwitnessed Stat brain CT to rule out acute abnormality/injury Stat left ankle x-ray for pain and redness May use Tylenol for pain Physical therapy evaluation for weakness to right extremity which is chronic and now acute left extremity weakness from pain (3) Development disorder, mixed: Status: Acute Code(s): F88 - Other disorders of psychological development (4) Schizoaffective disorder: Status: Acute Code(s): F25.9 - Schizoaffective disorder, unspecified (5) Borderline personality disorder: Status: Acute Code(s): F60.3 - Borderline personality disorder Plan 04/27:? restabilize on home meds, which she had not been taking consistently. 04/28: decrease morning and afternoon thorazine to 50 mg each dose (from 100 each), decrease HS prazosin dosing from 4 mg to 3 mg.? otherwise continue regimen instituted yesterday. 04/29: Decrease Prazosin to 2 mg HS tonight. 04/30: Decrease Prazosin to 1 mg HS. 05/01: DC Prazosin. Add Thorazine PRN. If doesn't work, could try Haldol. 05/02: c/o MNA, but she is OK with it at the moment.? c/o overstimulation, asks for ritalin to be lowered, so it is decreased from 5 TID to 5 BID.? fell in shower, head CT and foot xray pending. 05/03: feeling more emotionally dysregulated, banging head yesterday afternoon. agrees to reinstate thorazine 100 BID @ morning and afternoon and to return stimulant dosing to TID to compensate. 05/04: somewhat sedated, but she feels it is preferable to feeling out of control. asks to return stimulant to 10-10-5, which is essentially what she had been on prior to admission, in order to balance the recently increased thorazine dosing during the day. 05/05: more alert yet less emotionally troubled and psychotic than prior. continue current regimen. [facility] mtg sunday, discharge to respite some time next week. pt anxious, feeling not quite ready for discharge. 05/06 continue tx. Reason for contiued inpatient stay Substantial Risk for: inability to function Time Spent With Patient Time: Total time managing care of this patient today ____ minutes.
[2022-05-07 10:15] VITALS: BP 123/59; PULSE 93; RESP 16; TEMP 36.8; O2SAT 98
[2022-05-07] MEDS: Atorvastatin Calcium 40 MG TABLET PO (10:15)
[2022-05-07] MEDS: TiZANidine HCL 4 MG TABLET PO ×2 (10:15→20:20)
[2022-05-07] MEDS: metFORMIN HCl 1,000 MG TABLET 1000 MG PO (10:15)
[2022-05-07] MEDS: Sertraline HCL 50 MG TABLET 150 MG PO (10:15)
[2022-05-07] MEDS: Nicotine Polacrilex Lozenge 4 MG LOZENGE BUCCAL ×3 (10:15→21:50)
[2022-05-07] MEDS: Aspirin Enteric Coated 81 MG TABLET.DR PO (10:15)
[2022-05-07] MEDS: busPIRone HCl 10 MG TABLET PO ×2 (10:16→20:25)
[2022-05-07] MEDS: HaloperidoL 5 MG TABLET PO ×2 (10:16→20:20)
[2022-05-07] MEDS: Ferrous Sulfate 324 MG TABLET.DR PO (10:16)
[2022-05-07] MEDS: Multivitamin TABLET 1 TAB PO (10:16)
[2022-05-07] MEDS: Methylphenidate HCl 5 MG TABLET 10 MG PO ×2 (10:16→12:33)
[2022-05-07] MEDS: Fluticasone Propionate Nasal 16 GM SPRAY 2 SPRAY NOSTRIL-B (10:24)
[2022-05-07 10:27] LABS: Glucose, Whole Blood 176 mg/dL (60-115)
[2022-05-07] MEDS: chlorproMAZINE HCl 100 MG TABLET PO (10:27)
--- NOTE | 2022-05-07 11:13 | HO.PSYCHPN ---
Subjective Subjective Date of Service: 05/07/22 Reason For Visit: HI Subjective Notes: Conditional Voluntary Interim History: Pt much more visible today. 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 She states she has to remind herself of all difficulties she has overcome. She took her medications today as prescribed. She denies physical concerns. She denies VH/AH. She denies HI/SI. Medication Compliance: Yes Review of Systems Review of Systems Denies any recent fever chills or decrease in appetite respiratory denies any shortness of breath coverage production cardiovascular Denies chest pain gastrointestinal denies any dysphagia abdominal pain nausea vomiting or diarrhea genitourinary denies any dysuria frequency or hematuria musculoskeletal see HPI neuropsych denies any weakness or seizures, reports left sided head pain and pressure all other systems reviewed are negative Yes all other systems are reviewed and are negative Mental Status Exam Mental Status Exam Narrative: adequately dressed and groomed. alert. no PMA/PMR. cooperative. speech nml in rate, amount, loudness, tone, latency. thoughts linear and logical without evidence of delusions or paranoia. affect constricted, normo-intense, non-labile. mood not good. +AH. no SI/HI/VH expressed. Diagnostics Vital Signs (24Hr): Vital Signs - 24 hr 05/07/22 10:15 05/07/22 20:00 Temperature 98.2 F 98.0 F Pulse Rate 93 95 Respiratory Rate 16 16 Blood Pressure 123/59 L 118/71 Pulse Oximetry 98 99 Oxygen Delivery Method Room Air Room Air BMI result Body Mass Index 33.3 Labs 04/24/22 10:53 05/01/22 07:52 Labs: Laboratory Results - last 48 hr 05/07/22 10:13 POC Glucose 176 H Imaging Radiology Impressions: ITS Impressions Ankle X-Ray 05/02/22 16:45 IMPRESSION: 1. No acute fractures or malalignment. 2. Mild degenerative osteoarthritis. 3. Nonspecific soft tissue swelling. Head CT 05/02/22 16:49 IMPRESSION: Unchanged positioning of a left frontal approach neurostimulator device. No acute intracranial abnormality. Background of mild chronic microangiopathy and generalized cerebral volume loss. Medications Medications Current Medications Acetaminophen (Acetaminophen 325 Mg Tablet) 975 mg PO Q6H PRN PRN Reason: Headache/Pain Mild Scale (1-3) Last Admin: 05/07/22 12:33 Dose: 975 mg Al Hydroxide/Mg Hydroxide (Magnesium Hydrox/Alum Hydrox 30 Ml Oral.Susp) 30 ml PO Q6H PRN PRN Reason: Heartburn/Nausea Last Admin: 05/01/22 00:50 Dose: 30 ml Aspirin (Aspirin Enteric Coated 81 Mg Tablet.) 81 mg PO DAILY [facility] Last Admin: 05/07/22 10:15 Dose: 81 mg Atorvastatin Calcium (Atorvastatin Calcium 40 Mg Tablet) 40 mg PO DAILY [facility] Last Admin: 05/07/22 10:15 Dose: 40 mg Buspirone HCl (Buspirone Hcl 10 Mg Tablet) 10 mg PO BID@899,1999 [facility] Last Admin: 05/07/22 20:25 Dose: 10 mg Calamine (Calamine/Zinc Oxide Lotion 177 Ml Bottle) 1 appl TOPICAL QID PRN; Protocol PRN Reason: Rash Cariprazine (Cariprazine Hcl 1.5 Mg Capsule) 4.5 mg PO DAILY@1999 [facility] Last Admin: 05/07/22 20:24 Dose: 4.5 mg Chlorpromazine HCl (Chlorpromazine Hcl 100 Mg Tablet) 200 mg PO DAILY@1999 [facility] Last Admin: 05/07/22 20:25 Dose: 200 mg Chlorpromazine HCl (Chlorpromazine Hcl 100 Mg Tablet) 100 mg PO DAILY@0900,1600 [facility] Last Admin: 05/07/22 17:03 Dose: Not Given Docusate Sodium (Docusate Sodium 100 Mg/10 Ml Liquid) 50 mg PO BEDTIME PRN PRN Reason: Constipation Docusate Sodium (Docusate Sodium 100 Mg Capsule) 100 mg PO DAILY@1999 [facility] Last Admin: 05/07/22 20:25 Dose: 100 mg Ferrous Sulfate (Ferrous Sulfate 324 Mg Tablet.) 324 mg PO DAILY [facility] Last Admin: 05/07/22 10:16 Dose: 324 mg Fluticasone Propionate (Fluticasone Propionate Nasal 16 Gm [place]) 2 spray NOSTRIL-B DAILY [facility] Last Admin: 05/07/22 10:24 Dose: 2 spray Haloperidol (Haloperidol 5 Mg Tablet) 5 mg PO Q4H PRN PRN Reason: agitation Last Admin: 05/07/22 20:20 Dose: 5 mg Hydrocortisone (Hydrocortisone 1 % Cream 28.35 Gm Tube) 1 appl TOPICAL BID PRN; Protocol PRN Reason: adv. resp to nicotine patch Last Admin: 05/01/22 18:36 Dose: 1 appl Hydroxyzine HCl (Hydroxyzine Hcl 25 Mg Tablet) 25 mg PO BID PRN PRN Reason: Anxiety Last Admin: 05/05/22 20:57 Dose: 25 mg Ibuprofen (Ibuprofen 600 Mg Tablet) 600 mg PO Q8H PRN PRN Reason: cramping Last Admin: 05/05/22 00:38 Dose: 600 mg Magnesium Hydroxide (Milk Of Magnesia 30 Ml Oral.Susp) 30 ml PO DAILY PRN PRN Reason: Constipation Metformin HCl (Metformin Hcl 1,000 Mg Tablet) 1,000 mg PO BIDWM [facility] Last Admin: 05/07/22 17:03 Dose: Not Given Methylphenidate HCl (Methylphenidate Hcl 5 Mg Tablet) 10 mg PO BID@0800,1300 [facility] Last Admin: 05/07/22 12:33 Dose: 10 mg Methylphenidate HCl (Methylphenidate Hcl 5 Mg Tablet) 5 mg PO DAILY@1600 [facility] Last Admin: 05/07/22 17:03 Dose: Not Given Multi-Ingred Cream/Lotion/Oil/Oint (Mineral Oil/Petrolatum,White 106 Gm Tube) 1 appl TOPICAL TID PRN; Protocol PRN Reason: nicotine patch rash Multivitamins/Vitamin C (Multivitamin Tablet) 1 tab PO DAILY [facility] Last Admin: 05/07/22 10:16 Dose: 1 tab Nicotine Polacrilex (Nicotine Polacrilex Lozenge 4 Mg Lozenge) 4 mg BUCCAL Q2H PRN PRN Reason: Nicotine Cravings Last Admin: 05/08/22 05:04 Dose: 4 mg Omeprazole (Omeprazole 20 Mg Capsule.Dr) 20 mg PO DAILY@1999 [facility] Last Admin: 05/07/22 20:25 Dose: 20 mg Senna (Sennosides 8.6 Mg Tablet) 8.6 mg PO DAILY@1999 [facility] Last Admin: 05/07/22 20:25 Dose: 8.6 mg Sertraline HCl (Sertraline Hcl 50 Mg Tablet) 150 mg PO DAILY [facility] Last Admin: 05/07/22 10:15 Dose: 150 mg Tizanidine HCl (Tizanidine Hcl 4 Mg Tablet) 4 mg PO TID PRN PRN Reason: spasm Last Admin: 05/08/22 05:54 Dose: 4 mg Trazodone HCl (Trazodone Hcl 50 Mg Tablet) 50 mg PO BEDTIME PRN PRN Reason: Insomnia Last Admin: 05/07/22 21:50 Dose: 50 mg Allergies Allergies Allergy/AdvReac Type Severity Reaction Status Date / Time amoxicillin [Amoxicillin] Allergy Mild HIVES Verified 04/24/22 09:32 baclofen [Baclofen] Allergy Unknown UNKNOWN Verified 04/24/22 09:32 bupropion [From Wellbutrin] Allergy Unknown UNKNOWN Verified 04/24/22 09:32 diphenhydramine Allergy Unknown UNKNOWN Verified 04/24/22 09:32 [From Benadryl] divalproex sodium Allergy Unknown UNKNOWN Verified 04/24/22 09:32 [From Depakote] fluoxetine [From Prozac] Allergy Unknown UNKNOWN Verified 04/24/22 09:32 Penicillins Allergy Unknown UNKNOWN Verified 04/24/22 09:32 nicotine patch Allergy Intermediate rash Uncoded 05/01/22 17:52 Assessment & Plan Assessment & Plan (1) Chronic posttraumatic stress disorder: Status: Acute Code(s): F43.12 - Post-traumatic stress disorder, chronic (2) Unwitnessed fall: Status: Acute Code(s): R29.6 - Repeated falls Assessment and Plan: 41-year-old woman an adult psych had a fall around 230 according to the patient, fall was unwitnessed while she was in the shower, she fell on the left side of her head and hit her left ankle as well. She denies loss of consciousness and was able to yell for help. Fall. Unwitnessed Stat brain CT to rule out acute abnormality/injury Stat left ankle x-ray for pain and redness May use Tylenol for pain Physical therapy evaluation for weakness to right extremity which is chronic and now acute left extremity weakness from pain (3) Development disorder, mixed: Status: Acute Code(s): F88 - Other disorders of psychological development (4) Schizoaffective disorder: Status: Acute Code(s): F25.9 - Schizoaffective disorder, unspecified (5) Borderline personality disorder: Status: Acute Code(s): F60.3 - Borderline personality disorder Plan 04/27:? restabilize on home meds, which she had not been taking consistently. 04/28: decrease morning and afternoon thorazine to 50 mg each dose (from 100 each), decrease HS prazosin dosing from 4 mg to 3 mg.? otherwise continue regimen instituted yesterday. 04/29: Decrease Prazosin to 2 mg HS tonight. 04/30: Decrease Prazosin to 1 mg HS. 05/01: DC Prazosin. Add Thorazine PRN. If doesn't work, could try Haldol. 05/02: c/o MNA, but she is OK with it at the moment.? c/o overstimulation, asks for ritalin to be lowered, so it is decreased from 5 TID to 5 BID.? fell in shower, head CT and foot xray pending. 05/03: feeling more emotionally dysregulated, banging head yesterday afternoon. agrees to reinstate thorazine 100 BID @ morning and afternoon and to return stimulant dosing to TID to compensate. 05/04: somewhat sedated, but she feels it is preferable to feeling out of control. asks to return stimulant to 10-10-5, which is essentially what she had been on prior to admission, in order to balance the recently increased thorazine dosing during the day. 05/05: more alert yet less emotionally troubled and psychotic than prior. continue current regimen. [facility]D mtg sunday, discharge to respite some time next week. pt anxious, feeling not quite ready for discharge. 05/06 continue tx. 05/07 continue tx. Reason for contiued inpatient stay Substantial Risk for: inability to function Time Spent With Patient Time: Total time managing care of this patient today ____ minutes.
[2022-05-07] MEDS: Acetaminophen 325 MG TABLET 975 MG PO (12:33)
[2022-05-07 20:00] VITALS: BP 118/71; PULSE 95; RESP 16; TEMP 36.7; O2SAT 99
[2022-05-07] MEDS: Cariprazine HCl 1.5 MG CAPSULE 4.5 MG PO (20:24)
[2022-05-07] MEDS: Omeprazole 20 MG CAPSULE.DR PO (20:25)
[2022-05-07] MEDS: Docusate Sodium 100 MG CAPSULE PO (20:25)
[2022-05-07] MEDS: chlorproMAZINE HCl 100 MG TABLET 200 MG PO (20:25)
[2022-05-07] MEDS: Sennosides 8.6 MG TABLET PO (20:25)
[2022-05-07] MEDS: traZODone HCL 50 MG TABLET PO (21:50)
[2022-05-08] MEDS: Nicotine Polacrilex Lozenge 4 MG LOZENGE BUCCAL ×5 (01:46→16:12)
[2022-05-08] MEDS: TiZANidine HCL 4 MG TABLET PO ×3 (05:54→20:36)
[2022-05-08 08:00] VITALS: BP 111/57; PULSE 84; TEMP 36.1; O2SAT 98
[2022-05-08] MEDS: Sertraline HCL 50 MG TABLET 150 MG PO (08:11)
[2022-05-08] MEDS: Aspirin Enteric Coated 81 MG TABLET.DR PO (08:12)
[2022-05-08] MEDS: Methylphenidate HCl 5 MG TABLET 10 MG PO ×2 (08:12→13:23)
[2022-05-08] MEDS: Multivitamin TABLET 1 TAB PO (08:13)
[2022-05-08] MEDS: Atorvastatin Calcium 40 MG TABLET PO (08:13)
[2022-05-08] MEDS: metFORMIN HCl 1,000 MG TABLET 1000 MG PO ×2 (08:13→16:01)
[2022-05-08] MEDS: busPIRone HCl 10 MG TABLET PO ×2 (08:13→20:36)
[2022-05-08] MEDS: Ferrous Sulfate 324 MG TABLET.DR PO (08:13)
[2022-05-08] MEDS: chlorproMAZINE HCl 100 MG TABLET PO ×2 (08:32→16:01)
[2022-05-08] MEDS: Fluticasone Propionate Nasal 16 GM SPRAY 2 SPRAY NOSTRIL-B (08:33)
[2022-05-08 08:45] LABS: Glucose, Whole Blood 189 mg/dL (60-115)
[2022-05-08 09:35] LABS: Creatinine Clr Calc Pharmacy 110.1; Estimated Glomerular Filt Rate > 60
[2022-05-08] MEDS: Acetaminophen 325 MG TABLET 975 MG PO (12:08)
[2022-05-08] MEDS: HaloperidoL 5 MG TABLET PO ×2 (12:49→17:44)
--- NOTE | 2022-05-08 15:47 | HO.PSYCHPN ---
Subjective Subjective Date of Service: 05/08/22 Reason For Visit: HI Interim History: calm, cooperative. cogent, insightful. states she has been trying to sabotage her discharge so as to go to [facility], but she has realized that is a step backward rather than a step forward. she had refused her medications a couple of days over the weekend, but she has now re-committed to taking them[place] [facility]. per staff, isolative. ordering coffee only over the weekend. attending groups. refused some meds sta and sun. some SI. more social. depressed. i feel impulsive. lesion on scalp. D/C weds to [facility] resp[facility]. Mental Status Exam Mental Status Exam Narrative: adequately dressed and groomed. alert. no PMA/PMR. cooperative. speech nml in rate, amount, loudness, tone, latency. thoughts linear and logical without evidence of delusions or paranoia. affect constricted, normo-intense, non-labile. no SI/HI/AVH expressed. Diagnostics Vital Signs (24Hr): Vital Signs - 24 hr 05/07/22 20:00 05/08/22 08:00 Temperature 98.0 F 96.9 F Pulse Rate 95 84 Respiratory Rate 16 Blood Pressure 118/71 111/57 L Pulse Oximetry 99 98 Oxygen Delivery Method Room Air Room Air BMI result Body Mass Index 33.3 Labs 04/24/22 10:53 05/08/22 08:35 Labs: Laboratory Results - last 48 hr 05/07/22 05/08/22 05/08/22 10:13 08:35 08:42 Creatinine 0.67 Estim Creat Clear Calc 110.1 Estimated GFR > 60 POC Glucose 176 H 189 H Imaging Radiology Impressions: ITS Impressions Ankle X-Ray 05/02/22 16:45 IMPRESSION: 1. No acute fractures or malalignment. 2. Mild degenerative osteoarthritis. 3. Nonspecific soft tissue swelling. Head CT 05/02/22 16:49 IMPRESSION: Unchanged positioning of a left frontal approach neurostimulator device. No acute intracranial abnormality. Background of mild chronic microangiopathy and generalized cerebral volume loss. Medications Medications Current Medications Acetaminophen (Acetaminophen 325 Mg Tablet) 975 mg PO Q6H PRN PRN Reason: Headache/Pain Mild Scale (1-3) Last Admin: 05/08/22 12:08 Dose: 975 mg Al Hydroxide/Mg Hydroxide (Magnesium Hydrox/Alum Hydrox 30 Ml Oral.Susp) 30 ml PO Q6H PRN PRN Reason: Heartburn/Nausea Last Admin: 05/01/22 00:50 Dose: 30 ml Aspirin (Aspirin Enteric Coated 81 Mg Tablet.) 81 mg PO DAILY [facility] Last Admin: 05/08/22 08:12 Dose: 81 mg Atorvastatin Calcium (Atorvastatin Calcium 40 Mg Tablet) 40 mg PO DAILY [facility] Last Admin: 05/08/22 08:13 Dose: 40 mg Buspirone HCl (Buspirone Hcl 10 Mg Tablet) 10 mg PO BID@ [facility] Last Admin: 05/08/22 08:13 Dose: 10 mg Calamine (Calamine/Zinc Oxide Lotion 177 Ml Bottle) 1 appl TOPICAL QID PRN; Protocol PRN Reason: Rash Cariprazine (Cariprazine Hcl 1.5 Mg Capsule) 4.5 mg PO DAILY@1999 [facility] Last Admin: 05/07/22 20:24 Dose: 4.5 mg Chlorpromazine HCl (Chlorpromazine Hcl 100 Mg Tablet) 200 mg PO DAILY@1999 [facility] Last Admin: 05/07/22 20:25 Dose: 200 mg Chlorpromazine HCl (Chlorpromazine Hcl 100 Mg Tablet) 100 mg PO DAILY@0900,1600 [facility] Last Admin: 05/08/22 08:32 Dose: 100 mg Docusate Sodium (Docusate Sodium 100 Mg/10 Ml Liquid) 50 mg PO BEDTIME PRN PRN Reason: Constipation Docusate Sodium (Docusate Sodium 100 Mg Capsule) 100 mg PO DAILY@1999 [facility] Last Admin: 05/07/22 20:25 Dose: 100 mg Ferrous Sulfate (Ferrous Sulfate 324 Mg Tablet.) 324 mg PO DAILY [facility] Last Admin: 05/08/22 08:13 Dose: 324 mg Fluticasone Propionate (Fluticasone Propionate Nasal 16 Gm [place]) 2 spray NOSTRIL-B DAILY [facility] Last Admin: 05/08/22 08:33 Dose: 2 spray Haloperidol (Haloperidol 5 Mg Tablet) 5 mg PO Q4H PRN PRN Reason: agitation Last Admin: 05/08/22 12:49 Dose: 5 mg Hydrocortisone (Hydrocortisone 1 % Cream 28.35 Gm Tube) 1 appl TOPICAL BID PRN; Protocol PRN Reason: adv. resp to nicotine patch Last Admin: 05/01/22 18:36 Dose: 1 appl Hydroxyzine HCl (Hydroxyzine Hcl 25 Mg Tablet) 25 mg PO BID PRN PRN Reason: Anxiety Last Admin: 05/05/22 20:57 Dose: 25 mg Ibuprofen (Ibuprofen 600 Mg Tablet) 600 mg PO Q8H PRN PRN Reason: cramping Last Admin: 05/05/22 00:38 Dose: 600 mg Magnesium Hydroxide (Milk Of Magnesia 30 Ml Oral.Susp) 30 ml PO DAILY PRN PRN Reason: Constipation Metformin HCl (Metformin Hcl 1,000 Mg Tablet) 1,000 mg PO BIDWM [facility] Last Admin: 05/08/22 08:13 Dose: 1,000 mg Methylphenidate HCl (Methylphenidate Hcl 5 Mg Tablet) 10 mg PO BID@0800,1300 [facility] Last Admin: 05/08/22 13:23 Dose: 10 mg Methylphenidate HCl (Methylphenidate Hcl 5 Mg Tablet) 5 mg PO DAILY@1600 [facility] Last Admin: 05/07/22 17:03 Dose: Not Given Multi-Ingred Cream/Lotion/Oil/Oint (Mineral Oil/Petrolatum,White 106 Gm Tube) 1 appl TOPICAL TID PRN; Protocol PRN Reason: nicotine patch rash Multivitamins/Vitamin C (Multivitamin Tablet) 1 tab PO DAILY [facility] Last Admin: 05/08/22 08:13 Dose: 1 tab Nicotine Polacrilex (Nicotine Polacrilex Lozenge 4 Mg Lozenge) 4 mg BUCCAL Q2H PRN PRN Reason: Nicotine Cravings Last Admin: 05/08/22 10:32 Dose: 4 mg Omeprazole (Omeprazole 20 Mg Capsule.Dr) 20 mg PO DAILY@1999 [facility] Last Admin: 05/07/22 20:25 Dose: 20 mg Senna (Sennosides 8.6 Mg Tablet) 8.6 mg PO DAILY@1999 [facility] Last Admin: 05/07/22 20:25 Dose: 8.6 mg Sertraline HCl (Sertraline Hcl 50 Mg Tablet) 150 mg PO DAILY [facility] Last Admin: 05/08/22 08:11 Dose: 150 mg Tizanidine HCl (Tizanidine Hcl 4 Mg Tablet) 4 mg PO TID PRN PRN Reason: spasm Last Admin: 05/08/22 15:16 Dose: 4 mg Trazodone HCl (Trazodone Hcl 50 Mg Tablet) 50 mg PO BEDTIME PRN PRN Reason: Insomnia Last Admin: 05/07/22 21:50 Dose: 50 mg Allergies Allergies Allergy/AdvReac Type Severity Reaction Status Date / Time amoxicillin [Amoxicillin] Allergy Mild HIVES Verified 04/24/22 09:32 baclofen [Baclofen] Allergy Unknown UNKNOWN Verified 04/24/22 09:32 bupropion [From Wellbutrin] Allergy Unknown UNKNOWN Verified 04/24/22 09:32 diphenhydramine Allergy Unknown UNKNOWN Verified 04/24/22 09:32 [From Benadryl] divalproex sodium Allergy Unknown UNKNOWN Verified 04/24/22 09:32 [From Depakote] fluoxetine [From Prozac] Allergy Unknown UNKNOWN Verified 04/24/22 09:32 Penicillins Allergy Unknown UNKNOWN Verified 04/24/22 09:32 nicotine patch Allergy Intermediate rash Uncoded 05/01/22 17:52 Assessment & Plan Assessment & Plan (1) Chronic posttraumatic stress disorder: Status: Acute Code(s): F43.12 - Post-traumatic stress disorder, chronic (2) Unwitnessed fall: Status: Acute Code(s): R29.6 - Repeated falls Assessment and Plan: 41-year-old woman an adult psych had a fall around 230 according to the patient, fall was unwitnessed while she was in the shower, she fell on the left side of her head and hit her left ankle as well. She denies loss of consciousness and was able to yell for help. Fall. Unwitnessed Stat brain CT to rule out acute abnormality/injury Stat left ankle x-ray for pain and redness May use Tylenol for pain Physical therapy evaluation for weakness to right extremity which is chronic and now acute left extremity weakness from pain (3) Development disorder, mixed: Status: Acute Code(s): F88 - Other disorders of psychological development (4) Schizoaffective disorder: Status: Acute Code(s): F25.9 - Schizoaffective disorder, unspecified (5) Borderline personality disorder: Status: Acute Code(s): F60.3 - Borderline personality disorder Plan 04/27:? restabilize on home meds, which she had not been taking consistently. 04/28: decrease morning and afternoon thorazine to 50 mg each dose (from 100 each), decrease HS prazosin dosing from 4 mg to 3 mg.? otherwise continue regimen instituted yesterday. 04/29: Decrease Prazosin to 2 mg HS tonight. 04/30: Decrease Prazosin to 1 mg HS. 05/01: DC Prazosin. Add Thorazine PRN. If doesn't work, could try Haldol. 05/02: c/o MNA, but she is OK with it at the moment.? c/o overstimulation, asks for ritalin to be lowered, so it is decreased from 5 TID to 5 BID.? fell in shower, head CT and foot xray pending. 05/03: feeling more emotionally dysregulated, banging head yesterday afternoon. agrees to reinstate thorazine 100 BID @ morning and afternoon and to return stimulant dosing to TID to compensate. 05/04: somewhat sedated, but she feels it is preferable to feeling out of control. asks to return stimulant to 10-10-5, which is essentially what she had been on prior to admission, in order to balance the recently increased thorazine dosing during the day. 05/05: more alert yet less emotionally troubled and psychotic than prior. continue current regimen. [facility] mtg sunday, discharge to respite some time next week. pt anxious, feeling not quite ready for discharge. 05/06 continue tx. 05/07 continue tx. 05/08: refused some meds over weekend, now returning to take meds, no longer trying to sabotage her discharge. mtg with outpt treaters tomorrow, planning for discharge to [facility] resp[facility] . Reason for contiued inpatient stay Substantial Risk for: harm to self, inability to function and rapid decompensation Time Spent With Patient Time: Total time managing care of this patient today _25___ minutes.
[2022-05-08] MEDS: Methylphenidate HCl 5 MG TABLET PO (16:02)
[2022-05-08 20:00] VITALS: BP 128/67; PULSE 94; RESP 16; TEMP 36.6; O2SAT 100
[2022-05-08] MEDS: chlorproMAZINE HCl 100 MG TABLET 200 MG PO (20:35)
[2022-05-08] MEDS: Cariprazine HCl 1.5 MG CAPSULE 4.5 MG PO (20:36)
[2022-05-08] MEDS: Sennosides 8.6 MG TABLET PO (20:36)
[2022-05-08] MEDS: Docusate Sodium 100 MG CAPSULE PO (20:36)
[2022-05-08] MEDS: Omeprazole 20 MG CAPSULE.DR PO (20:36)
[2022-05-08] MEDS: traZODone HCL 50 MG TABLET PO (20:36)
[2022-05-09 08:41] VITALS: BP 120/69; PULSE 90; TEMP 36.4; O2SAT 98
[2022-05-09 09:09] LABS: Glucose, Whole Blood 196 mg/dL (60-115)
[2022-05-09] MEDS: metFORMIN HCl 1,000 MG TABLET 1000 MG PO ×2 (09:32→16:02)
[2022-05-09] MEDS: chlorproMAZINE HCl 100 MG TABLET PO ×2 (09:32→16:00)
[2022-05-09] MEDS: Multivitamin TABLET 1 TAB PO (09:32)
[2022-05-09] MEDS: Methylphenidate HCl 5 MG TABLET 10 MG PO ×2 (09:33→13:33)
[2022-05-09] MEDS: Sertraline HCL 50 MG TABLET 150 MG PO (09:33)
[2022-05-09] MEDS: busPIRone HCl 10 MG TABLET PO ×2 (09:34→20:48)
[2022-05-09] MEDS: Atorvastatin Calcium 40 MG TABLET PO (09:34)
[2022-05-09] MEDS: Aspirin Enteric Coated 81 MG TABLET.DR PO (09:34)
[2022-05-09] MEDS: Ferrous Sulfate 324 MG TABLET.DR PO (09:34)
[2022-05-09] MEDS: Nicotine Polacrilex Lozenge 4 MG LOZENGE BUCCAL ×2 (09:35→16:04)
[2022-05-09] MEDS: Fluticasone Propionate Nasal 16 GM SPRAY 2 SPRAY NOSTRIL-B (09:43)
[2022-05-09] MEDS: HaloperidoL 5 MG TABLET PO ×2 (10:49→15:56)
[2022-05-09] MEDS: TiZANidine HCL 4 MG TABLET PO (15:55)
[2022-05-09] MEDS: Methylphenidate HCl 5 MG TABLET PO (15:56)
--- NOTE | 2022-05-09 18:35 | HO.PSYCHPN ---
Subjective Subjective Date of Service: 05/09/22 Reason For Visit: HI Interim History: no change in presentation. future-oriented, hopeful. planning for discharge tomorrow. per staff, dep/anx 5. SI improved, no intent in hospital. visible, social, sleeping well. +AH. no SI/HI. D/C tomorrow. Mental Status Exam Mental Status Exam Narrative: adequately dressed and groomed. alert. no PMA/PMR. cooperative. speech nml in rate, amount, loudness, tone, latency. thoughts linear and logical without evidence of delusions or paranoia. affect constricted, normo-intense, non-labile. no SI/HI/AVH expressed. Diagnostics Vital Signs (24Hr): Vital Signs - 24 hr 05/08/22 20:00 05/09/22 08:41 Temperature 97.8 F 97.6 F Pulse Rate 94 90 Respiratory Rate 16 Blood Pressure 128/67 120/69 Pulse Oximetry 100 98 Oxygen Delivery Method Room Air Room Air BMI result Body Mass Index 33.3 Labs 04/24/22 10:53 05/08/22 08:35 Labs: Laboratory Results - last 48 hr 05/08/22 05/08/22 05/09/22 08:35 08:42 09:05 Creatinine 0.67 Estim Creat Clear Calc 110.1 Estimated GFR > 60 POC Glucose 189 H 196 H Imaging Radiology Impressions: ITS Impressions Ankle X-Ray 05/02/22 16:45 IMPRESSION: 1. No acute fractures or malalignment. 2. Mild degenerative osteoarthritis. 3. Nonspecific soft tissue swelling. Head CT 05/02/22 16:49 IMPRESSION: Unchanged positioning of a left frontal approach neurostimulator device. No acute intracranial abnormality. Background of mild chronic microangiopathy and generalized cerebral volume loss. Medications Medications Current Medications Acetaminophen (Acetaminophen 325 Mg Tablet) 975 mg PO Q6H PRN PRN Reason: Headache/Pain Mild Scale (1-3) Last Admin: 05/08/22 12:08 Dose: 975 mg Al Hydroxide/Mg Hydroxide (Magnesium Hydrox/Alum Hydrox 30 Ml Oral.Susp) 30 ml PO Q6H PRN PRN Reason: Heartburn/Nausea Last Admin: 05/01/22 00:50 Dose: 30 ml Aspirin (Aspirin Enteric Coated 81 Mg Tablet.Dr) 81 mg PO DAILY [facility] Last Admin: 05/09/22 09:34 Dose: 81 mg Atorvastatin Calcium (Atorvastatin Calcium 40 Mg Tablet) 40 mg PO DAILY [facility] Last Admin: 05/09/22 09:34 Dose: 40 mg Buspirone HCl (Buspirone Hcl 10 Mg Tablet) 10 mg PO BID@899,1999 [facility] Last Admin: 05/09/22 09:34 Dose: 10 mg Calamine (Calamine/Zinc Oxide Lotion 177 Ml Bottle) 1 appl TOPICAL QID PRN; Protocol PRN Reason: Rash Cariprazine (Cariprazine Hcl 1.5 Mg Capsule) 4.5 mg PO DAILY@1999 [facility] Last Admin: 05/08/22 20:36 Dose: 4.5 mg Chlorpromazine HCl (Chlorpromazine Hcl 100 Mg Tablet) 200 mg PO DAILY@1999 [facility] Last Admin: 05/08/22 20:35 Dose: 200 mg Chlorpromazine HCl (Chlorpromazine Hcl 100 Mg Tablet) 100 mg PO DAILY@0900,1600 [facility] Last Admin: 05/09/22 16:00 Dose: 100 mg Docusate Sodium (Docusate Sodium 100 Mg/10 Ml Liquid) 50 mg PO BEDTIME PRN PRN Reason: Constipation Docusate Sodium (Docusate Sodium 100 Mg Capsule) 100 mg PO DAILY@1999 [facility] Last Admin: 05/08/22 20:36 Dose: 100 mg Ferrous Sulfate (Ferrous Sulfate 324 Mg Tablet.Dr) 324 mg PO DAILY [facility] Last Admin: 05/09/22 09:34 Dose: 324 mg Fluticasone Propionate (Fluticasone Propionate Nasal 16 Gm [place]) 2 spray NOSTRIL-B DAILY [facility] Last Admin: 05/09/22 09:43 Dose: 2 spray Haloperidol (Haloperidol 5 Mg Tablet) 5 mg PO Q4H PRN PRN Reason: agitation Last Admin: 05/09/22 15:56 Dose: 5 mg Hydrocortisone (Hydrocortisone 1 % Cream 28.35 Gm Tube) 1 appl TOPICAL BID PRN; Protocol PRN Reason: adv. resp to nicotine patch Last Admin: 05/01/22 18:36 Dose: 1 appl Hydroxyzine HCl (Hydroxyzine Hcl 25 Mg Tablet) 25 mg PO BID PRN PRN Reason: Anxiety Last Admin: 05/05/22 20:57 Dose: 25 mg Ibuprofen (Ibuprofen 600 Mg Tablet) 600 mg PO Q8H PRN PRN Reason: cramping Last Admin: 05/05/22 00:38 Dose: 600 mg Magnesium Hydroxide (Milk Of Magnesia 30 Ml Oral.Susp) 30 ml PO DAILY PRN PRN Reason: Constipation Metformin HCl (Metformin Hcl 1,000 Mg Tablet) 1,000 mg PO BIDWM [facility] Last Admin: 05/09/22 16:02 Dose: 1,000 mg Methylphenidate HCl (Methylphenidate Hcl 5 Mg Tablet) 10 mg PO BID@0800,1300 [facility] Last Admin: 05/09/22 13:33 Dose: 10 mg Methylphenidate HCl (Methylphenidate Hcl 5 Mg Tablet) 5 mg PO DAILY@1600 [facility] Last Admin: 05/09/22 15:56 Dose: 5 mg Multi-Ingred Cream/Lotion/Oil/Oint (Mineral Oil/Petrolatum,White 106 Gm Tube) 1 appl TOPICAL TID PRN; Protocol PRN Reason: nicotine patch rash Multivitamins/Vitamin C (Multivitamin Tablet) 1 tab PO DAILY [facility] Last Admin: 05/09/22 09:32 Dose: 1 tab Nicotine Polacrilex (Nicotine Polacrilex Lozenge 4 Mg Lozenge) 4 mg BUCCAL Q2H PRN PRN Reason: Nicotine Cravings Last Admin: 05/09/22 16:04 Dose: 4 mg Omeprazole (Omeprazole 20 Mg Capsule.Dr) 20 mg PO DAILY@1999 [facility] Last Admin: 05/08/22 20:36 Dose: 20 mg Senna (Sennosides 8.6 Mg Tablet) 8.6 mg PO DAILY@1999 [facility] Last Admin: 05/08/22 20:36 Dose: 8.6 mg Sertraline HCl (Sertraline Hcl 50 Mg Tablet) 150 mg PO DAILY [facility] Last Admin: 05/09/22 09:33 Dose: 150 mg Tizanidine HCl (Tizanidine Hcl 4 Mg Tablet) 4 mg PO TID PRN PRN Reason: spasm Last Admin: 05/09/22 15:55 Dose: 4 mg Trazodone HCl (Trazodone Hcl 50 Mg Tablet) 50 mg PO BEDTIME PRN PRN Reason: Insomnia Last Admin: 05/08/22 20:36 Dose: 50 mg Allergies Allergies Allergy/AdvReac Type Severity Reaction Status Date / Time amoxicillin [Amoxicillin] Allergy Mild HIVES Verified 04/24/22 09:32 baclofen [Baclofen] Allergy Unknown UNKNOWN Verified 04/24/22 09:32 bupropion [From Wellbutrin] Allergy Unknown UNKNOWN Verified 04/24/22 09:32 diphenhydramine Allergy Unknown UNKNOWN Verified 04/24/22 09:32 [From Benadryl] divalproex sodium Allergy Unknown UNKNOWN Verified 04/24/22 09:32 [From Depakote] fluoxetine [From Prozac] Allergy Unknown UNKNOWN Verified 04/24/22 09:32 Penicillins Allergy Unknown UNKNOWN Verified 04/24/22 09:32 nicotine patch Allergy Intermediate rash Uncoded 05/01/22 17:52 Assessment & Plan Assessment & Plan (1) Chronic posttraumatic stress disorder: Status: Acute Code(s): F43.12 - Post-traumatic stress disorder, chronic (2) Unwitnessed fall: Status: Acute Code(s): R29.6 - Repeated falls Assessment and Plan: 41-year-old woman an adult psych had a fall around 230 according to the patient, fall was unwitnessed while she was in the shower, she fell on the left side of her head and hit her left ankle as well. She denies loss of consciousness and was able to yell for help. Fall. Unwitnessed Stat brain CT to rule out acute abnormality/injury Stat left ankle x-ray for pain and redness May use Tylenol for pain Physical therapy evaluation for weakness to right extremity which is chronic and now acute left extremity weakness from pain (3) Development disorder, mixed: Status: Acute Code(s): F88 - Other disorders of psychological development (4) Schizoaffective disorder: Status: Acute Code(s): F25.9 - Schizoaffective disorder, unspecified (5) Borderline personality disorder: Status: Acute Code(s): F60.3 - Borderline personality disorder Plan 04/27:? restabilize on home meds, which she had not been taking consistently. 04/28: decrease morning and afternoon thorazine to 50 mg each dose (from 100 each), decrease HS prazosin dosing from 4 mg to 3 mg.? otherwise continue regimen instituted yesterday. 04/29: Decrease Prazosin to 2 mg HS tonight. 04/30: Decrease Prazosin to 1 mg HS. 05/01: DC Prazosin. Add Thorazine PRN. If doesn't work, could try Haldol. 05/02: c/o MNA, but she is OK with it at the moment.? c/o overstimulation, asks for ritalin to be lowered, so it is decreased from 5 TID to 5 BID.? fell in shower, head CT and foot xray pending. 05/03: feeling more emotionally dysregulated, banging head yesterday afternoon. agrees to reinstate thorazine 100 BID @ morning and afternoon and to return stimulant dosing to TID to compensate. 05/04: somewhat sedated, but she feels it is preferable to feeling out of control. asks to return stimulant to 10-10-5, which is essentially what she had been on prior to admission, in order to balance the recently increased thorazine dosing during the day. 05/05: more alert yet less emotionally troubled and psychotic than prior. continue current regimen. [facility] mtg sunday, discharge to respite some time next week. pt anxious, feeling not quite ready for discharge. 05/06 continue tx. 05/07 continue tx. 05/08: refused some meds over weekend, now returning to take meds, no longer trying to sabotage her discharge. mtg with outpt treaters tomorrow, planning for discharge to [facility] . 05/09: stable. DC tomorrow. Reason for contiued inpatient stay Substantial Risk for: inability to function and rapid decompensation Time Spent With Patient Time: Total time managing care of this patient today _20___ minutes.
[2022-05-09] MEDS: Cariprazine HCl 1.5 MG CAPSULE 4.5 MG PO (20:48)
[2022-05-09] MEDS: Sennosides 8.6 MG TABLET PO (20:48)
[2022-05-09] MEDS: Omeprazole 20 MG CAPSULE.DR PO (20:48)
[2022-05-09] MEDS: Docusate Sodium 100 MG CAPSULE PO (20:48)
[2022-05-09] MEDS: chlorproMAZINE HCl 100 MG TABLET 200 MG PO (20:49)
[2022-05-10 06:00] VITALS: BP 111/74; PULSE 91; RESP 18; TEMP 36.7; O2SAT 96
[2022-05-10] MEDS: Nicotine Polacrilex Lozenge 4 MG LOZENGE BUCCAL (06:15)
[2022-05-10 08:51] LABS: COVID-19 Test Negative (Negative); IDNOW Serial# 16C4AD1C
[2022-05-10 09:02] LABS: Glucose, Whole Blood 227 mg/dL (60-115)
[2022-05-10] MEDS: Methylphenidate HCl 5 MG TABLET 10 MG PO ×2 (09:06→12:00)
[2022-05-10] MEDS: Atorvastatin Calcium 40 MG TABLET PO (09:06)
[2022-05-10] MEDS: TiZANidine HCL 4 MG TABLET PO (09:06)
[2022-05-10] MEDS: metFORMIN HCl 1,000 MG TABLET 1000 MG PO (09:06)
[2022-05-10] MEDS: Sertraline HCL 50 MG TABLET 150 MG PO (09:06)
[2022-05-10] MEDS: Aspirin Enteric Coated 81 MG TABLET.DR PO (09:07)
[2022-05-10] MEDS: busPIRone HCl 10 MG TABLET PO (09:07)
[2022-05-10] MEDS: HaloperidoL 5 MG TABLET PO (09:07)
[2022-05-10] MEDS: Ferrous Sulfate 324 MG TABLET.DR PO (09:08)
[2022-05-10] MEDS: Fluticasone Propionate Nasal 16 GM SPRAY 2 SPRAY NOSTRIL-B (09:08)
[2022-05-10] MEDS: Multivitamin TABLET 1 TAB PO (09:08)
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
[2022-05-10] MEDS: chlorproMAZINE HCl 100 MG TABLET PO (10:34)
== END 2022-05-10 12:30 | disposition home or self-care (01) | DRG 883 ==
LOC: HO.ED 04-26 14:45 → HO.PADLT16 04-26 15:36
PROVIDERS: Nurse Practitioner Family; Admitting Provider Psychiatry & Neurology Psychiatry; Emergency Provider Emergency Medicine; Visit Provider Psychiatry & Neurology Psychiatry
DX: F60.3 Borderline personality disorder (principal); F43.12 Post-traumatic stress disorder, chronic; R45.850 Homicidal ideations; Z96.82 Presence of neurostimulator; E11.9 Type 2 diabetes mellitus without complications; F17.210 Nicotine dependence, cigarettes, uncomplicated; F25.9 Schizoaffective disorder, unspecified; F88 Other disorders of psychological development; R29.6 Repeated falls; Z91.81 History of falling; Z20.822 Contact with and (suspected) exposure to COVID-19; Z88.0 Allergy status to penicillin; Z88.8 Allergy status to other drugs, medicaments and biological substances; Z79.51 Long term (current) use of inhaled steroids; Z79.82 Long term (current) use of aspirin; Z79.84 Long term (current) use of oral hypoglycemic drugs; Z79.899 Other long term (current) drug therapy
CPT/HCPCS: 36415; 70450; 73600; 80053; 80307; 81001; 81003; 81025; 82077; 82565; 82947; 85025; 87086; 87635; 93005; 97161; 99285; J2060

== ENCOUNTER 2023-01-29 09:20 | Outpatient (REF) | payer OTHER, SELFPAY ==
[2023-01-29 11:54] LABS: Hematocrit 42.4 % (37.0-47.0); Hemoglobin 13.6 g/dl (12.0-16.0); Mean Corpuscular HGB Conc 32.1 g/dl (31.0-35.0); Mean Corpuscular Hemoglobin 27.3 pg (27.0-33.0); Mean Corpuscular Volume 85.1 fL (80.0-98.0); Mean Platelet Volume 11.8 fL (9.4-12.3); Platelet Count 275 X10*3/uL (160-400); Red Blood Count 4.98 X10*6/uL (4.20-5.50); Red Cell Distribution Width 14.2 % (11.0-16.0)
[2023-01-29 11:56] LABS: Estimated Average Glucose 126 mg/dL
[2023-01-29 12:25] LABS: Syphilis Screen Nonreactive (Nonreactive)
[2023-01-29 12:33] LABS: HBS Num1 0.04 mIU/mL (0-7.99); HBc Num1 0.11 S/CO (0.00-0.79); HBsAGNum1 0.41 S/CO (0.00-0.99); HIV AB/AG Nonreactive (Nonreactive); HIV Num 1 0.05 S/CO (0.00-0.99); Hepatitis B Core Antibody Nonreactive (Nonreactive); Hepatitis B Surface Antigen Negative (Negative); ~HepC Num1 0.06 S/CO (0.00-0.79); ~Hepatitis B Surface Antibody NONREACTIVE (Nonreactive); ~Hepatitis C Antibody Nonreactive (Nonreactive)
[2023-01-29 12:44] LABS: Folate 4.5 ng/mL (> or = 4.0); Vitamin B12 424 pg/mL (200-900)
[2023-01-29 12:45] LABS: Alanine Aminotransferase 10 U/L (0-31); Albumin Level 4.3 g/dL (3.5-5.0); Alkaline Phosphatase 110 U/L (39-117); Anion Gap 16 (12-20); Aspartate Amino Transferase 14 U/L (5-31); Bilirubin Total 0.3 mg/dL (0.0-1.0); Blood Urea Nitrogen 7 mg/dL (9-16); Calcium 9.4 mg/dL (8.4-10.2); Carbon Dioxide 23 mmol/L (22-29); Chloride 106 mmol/L (96-108); Cholesterol 146 mg/dL (<200); Estimated Glomerular Filt Rate > 60; Ferritin 17 ng/mL (10-250); Glucose Random 120 mg/dL (60-115); HDL Cholesterol 40 mg/dL (>40); Iron 49 mcg/dL (30-160); LDL Cholesterol Calculated 79 mg/dL (<100); Percent Iron Saturation 16 % (15-50); Sodium 141 mmol/L (135-145); TSH reflex Free T4 0.83 uIU/mL (0.32-4.0); Total Iron Binding Capacity 308 mcg/dL (228-428); Total Protein 7.2 g/dL (6.5-8.0); Triglycerides 137 mg/dL (<150); Unsaturated Iron Binding 259 ug/dL
[2023-01-29 12:46] LABS: Atypical Lymph Absolute Manual 1.3 x10*3/uL; Atypical Lymphs Percent Manual 18 % (0-6); Band Neutrophils Percent 2 % (3-5); Eosinophils Absolute Manual 0.1 X10*3/uL (0.0-0.4); Eosinophils Percent Manual 2 % (0-4); Lymphocytes Percent Manual 14 % (20-40); Monocytes Absolute Manual 0.2 X10*3/uL (0.1-1.2); Monocytes Percent Manual 3 % (2-11); Neutrophils Absolute Manual 4.4 X10*3/uL (2.0-8.3); Neutrophils Percent Manual 61 % (45-73)
[2023-01-29 12:47] LABS: Acanthocytes 1+ (0-2) /OIF; Burr Cells 2+ (3-5) /OIF; Ovalocytes 1+ (5-14) /OIF; RBC Morphology NOTED
[2023-01-29 13:06] LABS: Platelet Estimate NORMAL (NORMAL); Platelet Morphology Comment NORMAL
[2023-02-03 00:13] LABS: VITAMIN D (1,25 OH) D3 43 pg/mL; Vit D (1,25-Dihydroxy) Total 43 pg/mL (18-72); Vitamin D (1,25 OH) D2 <8 pg/mL
== END 2023-01-29 09:21 | disposition home or self-care (01) ==
LOC: HO.HHCL 09:20
PROVIDERS: Visit Provider Student in an Organized Health Care Education/Training Program
DX: Z00.00 Encounter for general adult medical examination without abnormal findings (principal); Z11.4 Encounter for screening for human immunodeficiency virus [HIV]; E11.9 Type 2 diabetes mellitus without complications; Z13.220 Encounter for screening for lipoid disorders; Z13.21 Encounter for screening for nutritional disorder; Z13.0 Encounter for screening for diseases of the blood and blood-forming organs and certain disorders involving the immune mechanism; Z13.29 Encounter for screening for other suspected endocrine disorder
CPT/HCPCS: 36415; 80053; 80061; 82607; 82652; 82728; 82746; 83036; 83540; 84443; 85007; 85025; 85027; 86704; 86706; 86780; 86803; 87340; 87389

== ENCOUNTER 2023-02-15 16:01 | Outpatient (REF) | payer OTHER, SELFPAY | END 2023-02-15 16:02 | disposition home or self-care (01) | LOC: HO.HOSX 16:01 | PROVIDERS: Visit Provider Physician Assistant | DX: Z13.89 Encounter for screening for other disorder (principal) ==

== ENCOUNTER 2023-02-26 13:03 | Outpatient (REF) | payer OTHER, SELFPAY ==
[2023-02-26 16:08] LABS: Baso%MD 0.7 %; Eos%MD 1.6 %; Hematocrit 40.2 % (37.0-47.0); Hemoglobin 12.7 g/dl (12.0-16.0); IG%MD 0.2 %; Mean Corpuscular HGB Conc 31.6 g/dl (31.0-35.0); Mean Corpuscular Hemoglobin 26.8 pg (27.0-33.0); Mean Corpuscular Volume 84.8 fL (80.0-98.0); Mean Platelet Volume 11.8 fL (9.4-12.3); Mono%MD 9.6 %; Neut%MD 64.9 %; Platelet Count 244 X10*3/uL (160-400); Red Blood Count 4.74 X10*6/uL (4.20-5.50); Red Cell Distribution Width 14.6 % (11.0-16.0)
[2023-02-26 16:34] LABS: Lymphocytes Absolute Manual 1.8 X10*3/uL (1.2-4.9); Lymphocytes Percent Manual 20 % (20-40); Monocytes Absolute Manual 0.3 X10*3/uL (0.1-1.2); Monocytes Percent Manual 3 % (2-11); Neutrophils Percent Manual 77 % (45-73)
[2023-02-26 16:35] LABS: Acanthocytes 1+ (0-2) /OIF; Platelet Estimate NORMAL (NORMAL); Platelet Morphology Comment NORMAL; RBC Morphology NOTED
[2023-02-26 16:38] LABS: Neutrophils Absolute Manual 6.9 X10*3/uL (2.0-8.3)
== END 2023-02-26 13:04 | disposition home or self-care (01) ==
LOC: HO.HHCL 13:03
PROVIDERS: Visit Provider Student in an Organized Health Care Education/Training Program
DX: D72.820 Lymphocytosis (symptomatic) (principal)
CPT/HCPCS: 36415; 85007; 85025; 85027

== ENCOUNTER 2023-02-28 11:12 | Outpatient (REF) | payer OTHER, SELFPAY ==
--- NOTE | ~2023-02-28 | MM_ITS ---
EXAMINATION: MM SCREENING DIGITAL BREAST TOMOSYNTHESIS, BILATERAL CLINICAL INFORMATION: Screening. Asymptomatic. COMPARISON: Mammography: There are no prior studies for comparison. This is a baseline examination. TECHNIQUE: Digital breast tomosynthesis is performed in both the craniocaudal and mediolateral oblique views along with computer-aided detection (CAD). Synthesized 2D images are generated from the tomosynthesis. FINDINGS: There are scattered areas of fibroglandular density (ACR BI-RADS breast composition Category b). There is a pacemaker in the superior aspect of the left-sided chest. There are no significant masses, abnormal calcifications, or other abnormalities. MM/MM tomosynthesis screening BI IMPRESSION: No mammographic evidence of malignancy. ASSESSMENT: BI-RADS BI-RADS 1 - Negative RECOMMENDATION: Routine annual mammography screening. 1 year F/U This examination should not preclude the clinical evaluation of a suspicious palpable abnormality. This patient's information was entered into a reminder system with a target due date for their next mammogram.
== END 2023-02-28 11:13 | disposition home or self-care (01) ==
LOC: HO.MAMMO 11:12
PROVIDERS: Visit Provider Student in an Organized Health Care Education/Training Program
DX: Z12.31 Encounter for screening mammogram for malignant neoplasm of breast (principal)
CPT/HCPCS: 77063; 77067

== ENCOUNTER → 2023-02-28 11:30 | Outpatient (BNV) | payer OTHER, SELFPAY | PROVIDERS: Visit Provider Radiology Diagnostic Radiology | DX: Z12.31 Encounter for screening mammogram for malignant neoplasm of breast (principal) | CPT/HCPCS: 77063; 77067 ==

== ENCOUNTER 2023-03-01 09:40 | Outpatient (AMB) | payer OTHER, SELFPAY ==
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
== END 2023-03-01 10:10 | disposition home or self-care (01) ==
PROVIDERS: Visit Provider Physician Assistant
DX: M79.671 Pain in right foot (principal); G89.29 Other chronic pain
CPT/HCPCS: 99203

== ENCOUNTER 2023-03-01 12:31 | Outpatient (REF) | payer OTHER, SELFPAY ==
--- NOTE | ~2023-03-01 | XR_ITS ---
EXAMINATION: XR FOOT, RIGHT CLINICAL INFORMATION: Pain in unspecified foot. COMPARISON: Right ankle and foot 11/28/2021. TECHNIQUE: AP, lateral, and oblique views of the right foot. FINDINGS: The bone mineralization is normal. Joint spaces are preserved. Alignment maintained. No displaced fracture appreciated. XR/XR foot RT min 3V IMPRESSION: No displaced fracture. Recommend follow up imaging in 10-14 days if fracture is suspected.
== END 2023-03-01 12:32 | disposition home or self-care (01) ==
LOC: HO.HOSX 12:31
PROVIDERS: Visit Provider Physician Assistant
DX: S92.901D Unspecified fracture of right foot, subsequent encounter for fracture with routine healing (principal); M79.671 Pain in right foot; G89.29 Other chronic pain; X58.XXXD Exposure to other specified factors, subsequent encounter
CPT/HCPCS: 73630; 99202

== ENCOUNTER 2023-09-20 10:49 | Emergency (ER) | payer OTHER, SELFPAY ==
--- NOTE | ~2023-09-20 | XR_ITS ---
EXAMINATION: X-ray left shoulder X-ray left humerus CLINICAL INFORMATION: Pain, status post fall COMPARISON: None TECHNIQUE: Shoulder 3 views. Humerus 3 views. FINDINGS: Left shoulder: Radiopaque device/neurostimulator device projecting over the the shoulder/proximal humerus on the frontal view. In the visualized bones, no evidence of acute fracture or dislocation. 2 x 1.9 cm calcification projected superior to the greater tuberosity, could reflect calcific tendinitis or bursitis. Mild acromioclavicular arthritis. Left humerus: No evidence of acute humeral fracture or malalignment. Calcification superior to the greater tuberosity is redemonstrated. Elbow joint articulation is maintained. XR/XR shoulder LT min 2V IMPRESSION: Left shoulder: No evidence of acute fracture or dislocation. 2 x 1.9 cm calcification superior to the greater tuberosity could reflect calcific tendinitis or bursitis. Left humerus: No evidence of acute fracture or malalignment.
--- NOTE | ~2023-09-20 | XR_ITS ---
EXAMINATION: XR CHEST CLINICAL INFORMATION: Pain, status post fall COMPARISON: None available. TECHNIQUE: Frontal view of the chest was obtained. FINDINGS: Lordotic view. Slightly rotated positioning. Cardiomediastinal silhouette is within normal limits. Radiopaque stimulator device projected over the left upper chest. No focal consolidation, effusion, pulmonary edema. No pneumothorax is seen. No acute displaced rib fracture is seen. XR/XR chest 1V IMPRESSION: No acute pulmonary process.
--- NOTE | ~2023-09-20 | XR_ITS ---
EXAMINATION: X-ray left shoulder X-ray left humerus CLINICAL INFORMATION: Pain, status post fall COMPARISON: None TECHNIQUE: Shoulder 3 views. Humerus 3 views. FINDINGS: Left shoulder: Radiopaque device/neurostimulator device projecting over the the shoulder/proximal humerus on the frontal view. In the visualized bones, no evidence of acute fracture or dislocation. 2 x 1.9 cm calcification projected superior to the greater tuberosity, could reflect calcific tendinitis or bursitis. Mild acromioclavicular arthritis. Left humerus: No evidence of acute humeral fracture or malalignment. Calcification superior to the greater tuberosity is redemonstrated. Elbow joint articulation is maintained. XR/XR humerus LT IMPRESSION: Left shoulder: No evidence of acute fracture or dislocation. 2 x 1.9 cm calcification superior to the greater tuberosity could reflect calcific tendinitis or bursitis. Left humerus: No evidence of acute fracture or malalignment.
--- NOTE | ~2023-09-20 | CT_ITS ---
EXAMINATION: CT HEAD WITHOUT CONTRAST CLINICAL INFORMATION: Fall head strike COMPARISON: None TECHNIQUE: Contiguous axial imaging was performed from the skull base to vertex without intravenous administration of contrast. This CT examination was performed using dose optimization techniques as appropriate, variously including the following: *Automated exposure control *Adjustment of mA and/or kV according to patient size (this includes techniques or standardized protocols for targeted exams where dose is matched to indication/reason for exam; i.e. extremities or head) *Use of iterative reconstruction technique DLP: 684.97 mGy-cm FINDINGS: Redemonstrated left frontal approach neurostimulator terminating at the level of the left basal ganglia with streak artifact, stable. Chronic white matter small vessel ischemic changes. There is no evidence of acute intracranial hemorrhage or territorial infarction. No abnormal mass effect or midline shift is seen. Bustos to white matter differentiation is well preserved. No extra-axial fluid collections are identified. The ventricles are normal in size. There is no abnormal attenuation within the brain parenchyma. The osseous structures and soft tissues are normal. The mastoid air cells and visualized portions of the paranasal sinuses are well aerated. CT/CT cervical spine wo IV con IMPRESSION: 1. No acute intracranial pathology. 2. Redemonstrated left frontal approach neurostimulator terminating at the level of the left basal ganglia with streak artifact, stable. EXAMINATION: Noncontrast CT scan of the cervical spine. INDICATION: Fall head strike COMPARISON: None. TECHNIQUE: Helical, multidetector axial images were obtained from the occiput to the upper thorax. Coronal and sagittal reformats of the cervical spine were provided for interpretation. DLP: 304.2 mGy-cm FINDINGS: Incomplete closure of the right anterior C1 ring. Straightening the normal cervical curvature. Multilevel degenerative changes. No acute fractures or dislocations of the cervical spine are seen. Anatomic alignment and positioning of the vertebral bodies and posterior elements is noted. The atlantoaxial joint and craniovertebral articulations are normal without evidence of subluxation. There is no prevertebral soft tissue swelling. The thyroid gland and visualized portions of the lung apices and mediastinum are unremarkable. Left-sided nerve stimulator electrode partially visualized. IMPRESSION: 1. No acute visible fracture or dislocation. 2. Straightening the normal cervical curvature. 3. Multilevel degenerative changes.
[2023-09-20 10:54] VITALS: BP 148/70; PULSE 70; O2SAT 97
--- NOTE | 2023-09-20 11:01 | ED_ITS ---
HPI - General Adult General Chief complaint: Fall Stated complaint: DIZZY W/FALL IN SHOWER @ [facility] PER EMS Time Seen by Provider: 09/20/23 11:01 Source: patient and EMS Mode of arrival: EMS Limitations: no limitations History of Present Illness ED Provider: Marlen Carrion PA-C HPI narrative: Patient is a 42 year old assigned female at with a history of PTSD, schizoaffective disorder, and borderline personality disorder presenting to the emergency department today with left upper arm pain after a fall in the shower. Patient states that she isn't sure if she got dizzy and then fell or if she tripped and fell in the shower. Patient states that she isn't sure if she hit her head or not but her left upper arm hurts. Patient is on a section 21 from [facility] and must return there after work up. Patient denies any dizziness, lightheadedness, abdominal pain, nausea, vomiting, fever, chills, blurry vision, double vision, loss of vision, chest pain, difficulty breathing, shortness of breath, back pain, night sweats, pain with urination, increased urinary frequency, increased urinary urgency, blood in her urine or stool, syncope or a near syncopal episode, bowel incontinence, bladder incontinence, bowel retention, bladder retention, or any other complaints at this time. Onset (ago): minute(s) Location: left and upper extremity Radiation: non-radiation Severity: mild Severity scale (1-10): 3 Quality: aching and dull Pain Consistency: constant Relieving factors: none Exacerbating factors: none Associated symptoms: denies other symptoms Treatments prior to arrival: none Related Data Previous Rx's ?Medication ?Instructions ?Recorded aspirin 81 mg tablet,delayed 81 mg PO DAILY 30 days #30 tabs 05/09/22 release atorvastatin 40 mg tablet 40 mg PO DAILY 30 days #30 tabs 05/09/22 buspirone 10 mg tablet 10 mg PO BID@0900,2000 30 days #60 05/09/22 tabs cariprazine 4.5 mg capsule 4.5 mg PO BEDTIME 30 days #30 caps 05/09/22 (Vraylar) chlorpromazine 100 mg tablet 100 mg PO BID@0800,1600 30 days 05/09/22 #60 tabs chlorpromazine 100 mg tablet 200 mg (2 x 100 mg) PO BEDTIME 30 05/09/22 days #60 tabs docusate sodium 100 mg capsule 100 mg PO DAILY@2000 30 days #30 05/09/22 caps ferrous sulfate 324 mg (65 mg 324 mg PO DAILY 30 days #30 tabs 05/09/22 iron) tablet,delayed release fluticasone propionate 50 1 - 2 spray intranasal DAILY PRN 05/09/22 mcg/actuation nasal Dyspnea 30 days #1 inhaler spray,suspension haloperidol 5 mg tablet 5 mg PO TID PRN agitation 30 days 05/09/22 #3 tabs ibuprofen 600 mg tablet 600 mg PO Q8H PRN cramping #0 tabs 05/09/22 metformin 1,000 mg tablet 1 tab PO BID 30 days #60 tabs 05/09/22 multivitamin 1 tab PO DAILY 30 days #30 tabs 05/09/22 nicotine (polacrilex) 4 mg buccal 4 mg buccal Q2H PRN Nicotine 05/09/22 lozenge Cravings 30 days #108 ea pantoprazole 40 mg tablet,delayed 1 tab PO BEDTIME 30 days #30 tabs 05/09/22 release sennosides 8.6 mg tablet (senna) 8.6 mg PO DAILY PRN Constipation 05/09/22 30 days #30 tabs sertraline 50 mg tablet 150 mg (3 x 50 mg) PO DAILY 30 05/09/22 days #90 tabs trazodone 50 mg tablet 50 mg PO BEDTIME PRN Insomnia 30 05/09/22 days #30 tabs hydroxyzine HCl 25 mg tablet 25 mg PO DAILY PRN Anxiety 30 days 05/10/22 #30 tabs methylphenidate HCl 10 mg tablet 10 mg PO BID ADHD 30 days #60 tabs 05/10/22 methylphenidate HCl 5 mg tablet 5 mg PO DAILY 30 days #30 tabs 05/10/22 Allergies Allergy/AdvReac Type Severity Reaction Status Date / Time amoxicillin [Amoxicillin] Allergy Mild HIVES Verified 09/20/23 11:44 baclofen [Baclofen] Allergy Unknown UNKNOWN Verified 09/20/23 11:44 bupropion [From Wellbutrin] Allergy Unknown UNKNOWN Verified 09/20/23 11:44 diphenhydramine Allergy Unknown UNKNOWN Verified 09/20/23 11:44 [From Benadryl] divalproex sodium Allergy Unknown UNKNOWN Verified 09/20/23 11:44 [From Depakote] fluoxetine [From Prozac] Allergy Unknown UNKNOWN Verified 09/20/23 11:44 Penicillins Allergy Unknown UNKNOWN Verified 09/20/23 11:44 nicotine patch Allergy Intermediate rash Uncoded 09/20/23 11:44 Review of Systems 2 Constitutional: Constitutional: Reports no additional constitutional complaints, Denies chills, Denies fever(s) and Denies night sweats Eyes: Eyes: Reports no additional eye complaints, Denies blurry vision, Denies change in vision, Denies diplopia, Denies eye discharge, Denies loss of vision and Denies eye pain ENT: Denies dizziness Cardiovascular: Cardiovascular: Reports no additional cardiovascular complaints, Denies chest pain, Denies lightheadedness, Denies Loss of Consciousness and Denies dyspnea Respiratory: Respiratory: Reports no additional respiratory complaints and Denies dyspnea Gastrointestinal: Gastrointestinal: Reports no additional gastrointestinal complaints, Denies abdominal pain, Denies melena, Denies hematochezia, Denies change in bowel habits and Denies change in stool character Genitourinary: Genitourinary: Denies hematuria, Denies urinary frequency, Denies dysuria, Denies urinary incontinence, Denies urinary hesitancy and Denies urinary urgency Musculoskeletal: Musculoskeletal: Reports no additional musculoskeletal complaints, Denies numbness and Denies tingling Comments: left upper arm pain Neurologic: Denies dizziness, Denies loss of vision, Denies numbness and Denies tingling Psychiatric: Psychiatric: Reports no additional psychiatric complaints Endocrine: Endocrine: Reports no additional endocrine complaints Hematologic/Lymphatic: Hematologic/Lymphatic: Reports no additional hematologic/lymphatic complaints Allergic/Immunologic: Allergic/Immunologic: Reports no additional allergic/immunologic complaints [facility] Past Medical History Attestation statement: The following information was validated with the patient. Source: old records reviewed and nursing notes reviewed Medical History Unwitnessed fall Diabetes Surgical History Status post VNS (vagus nerve stimulator) placement Social History Social History Household Members: Other Household Members Other:: 4 roommates and staff Housing: Other Housing Other:: prison Do you presently have visiting nurse or other home services: No Alcohol intake: unknown Patient Tobacco Use Status: Current everyday Tobacco user Tobacco use type: Cigarette Cigarette Packs Per Day: 1 Cigarettes Per Day: 20 Years Smoked: 33 years e-Cigarette/Vaping Use: Former Use Second Hand Smoke Exposure: No Use of substances other than those prescribed or required for medical reasons: Yes Substance Use Type: Marijuana Advance Directives: No Do you have a plan to hurt others: No Plan service: No Sexual orientation: Decline to Answer Physical Exam ED Vital Signs: Vital Signs - 24 hr 09/20/23 11:52 09/20/23 15:52 Temperature 97.8 F 98.4 F Pulse Rate 67 64 Respiratory Rate 18 18 Blood Pressure 113/70 94/70 Pulse Oximetry 96 98 Oxygen Delivery Method Room Air Room Air BMI result Body Mass Index 26.4 Const General: cooperative, no acute distress, alert and awake Nutritional Appearance: well nourished Orientation/consciousness: patient oriented x3 Limitations: no limitations HENMT Head: Yes normal to inspection and Yes atraumatic Ears: hearing grossly normal bilaterally and external ears normal General nose exam: Normal external nose present, no nasal discharge noted and no epistaxis Face and sinus: Yes normal facial exam, No abrasion and No laceration Mouth: Normal oral and palatal mucosa present, no drooling and no muffled voice Teeth and gingiva: other (no teeth) Eyes General: appearance normal, both eyes and all related structures Periorbital: periorbital findings normal Eyelids: Yes eyelids normal Conjunctivae: conjunctivae normal Pupils: Equal, round and reactive pupils present EOM: EOMs intact bilaterally Neck Neck: Yes normal visual inspection, Yes full ROM and Yes no lymphadenopathy Chest Chest palpation & inspection: normal inspection of the chest Resp Effort & Inspection: normal respiratory effort and able to speak in complete sentences GI Inspection: Yes normal to inspection Neuro General: patient oriented x3 and moves all extremities Cranial nerves: Yes Equal, round and reactive pupils present Cognition (Neuro): normal cognition Motor exam (neuro): 5/5 motor strength present throughout Sensory Exam: Normal double simultaneous stimulation for sensation Coordination: [id number] test normal Extrem General: Yes normal to inspection, Yes full ROM and Yes capillary refill normal Psych Appearance: grossly normal Mental Status: mental status grossly normal Affect: normal affect Attitude: cooperative Thought process: Normal thought process present Thought content: Normal thought content present Insight: Good insight present (Psych) Medical Decision Making Medical Decision Making [facility] Narrative: Patient is a 42 year old assigned female at with a history of PTSD, schizoaffective disorder, and borderline personality disorder presenting to the emergency department today with left shoulder pain after a fall in the shower. Patient's physical exam was as noted in the physical exam portion of this note. Patient's blood work was unremarkable. Patient's urine showed no acute process. Patient's EKG was unremarkable. Patient's left shoulder x-ray, head CT, and C- spine CT showed no acute process. I explained my physical exam findings as well as all test results to the patient. I answered all questions asked by the patient. I stressed the importance of the patient taking her medication as prescribed. I stressed the importance of the patient following up with her primary care provider. I stressed the importance of the patient returning to the emergency department immediately if her symptoms were to worsen or if she were to develop any dizziness, shortness of breath, difficulty breathing, chest pain, blurry vision, loss of vision, nausea, vomiting, abdominal pain, fever, chills, back pain, or any other complaints. Patient verbalized agreement and understanding with this treatment plan and discharge back to [facility]. Differential Diagnosis Differential Diagnoses: The differential diagnosis associated with the presentation includes Shoulder pain Fall Admission/Observation Consideration of admission/observation: Escalation of care including admission/observation considered Patient would have been admitted to the hospital had her work up had any findings where hospital admission was appropriate and her clinical presentation warranted hospital admission. Lab Data [facility] Lab Attestation statement: I reviewed the patient's lab results. My interpretation of these results are in the MDM Rationale portion of this note. 09/20/23 15:37 09/20/23 12:55 Labs: Lab Results 09/20/23 09/20/23 Range/Units 12:55 15:37 WBC 7.1 (4.8-10.8) X10*3/uL RBC 4.75 (4.20-5.50) X10*6/uL Hgb 12.1 (12.0-16.0) g/dl Hct 38.2 (37.0-47.0) % MCV 80.4 (80.0-98.0) fL MCH 25.5 L (27.0-33.0) pg MCHC 31.7 (31.0-35.0) g/dl RDW 15.4 (11.0-16.0) % Plt Count 207 (160-400) X10*3/uL MPV 12.0 (9.4-12.3) fL Immature Gran % (Auto) 0.3 (0.0-0.4) % Neut % (Auto) 62.5 (45-73) % Lymph % (Auto) 24.3 (20-40) % [place] % (Auto) 9.5 (2-11) % Eos % (Auto) 2.7 (0-4) % Baso % (Auto) 0.7 (0-2) % Lymph # (Auto) 1.7 (1.2-4.9) X10*3/uL [place] # (Auto) 0.7 (0.1-1.2) X10*3/uL Eos # (Auto) 0.2 (0.0-0.4) X10*3/uL Baso # (Auto) 0.1 (0.0-0.2) X10*3/uL Abs Immat Gran (auto) 0.02 (0.00-0.03) X10*3/uL Absolute Neuts (auto) 4.5 (2.0-8.3) x10*3/uL Absolute Nucleated RBC 0.000 (0.0-0.012) X10*3/uL Nucleated RBC % (auto) 0.0 (0.0-0.2) /100WBC Sodium 144 (135-145) mmol/L Potassium 4.2 (3.3-5.1) mmol/L Chloride 109 H (96-108) mmol/L Carbon Dioxide 21 L (22-29) mmol/L Anion Gap 18 (12-20) BUN 8 L (9-16) mg/dL Creatinine 0.62 (0.5-1.4) mg/dL Estim Creat Clear Calc 100.9 Estimated GFR > 60 Random Glucose 140 H (60-115) mg/dL Calcium 9.6 (8.4-10.2) mg/dL Magnesium 1.9 (1.6-2.6) mg/dL Total Bilirubin 0.2 (0.0-1.0) mg/dL AST 21 (5-31) U/L ALT 13 (0-31) U/L Alkaline Phosphatase 86 (39-117) U/L Troponin I High Sens < 2.7 (<3.5-17.0) ng/L Total Protein 6.6 (6.5-8.0) g/dL Albumin 3.9 (3.5-5.0) g/dL Influenza Type A (PCR) NEGATIVE (Negative) Influenza Type B (PCR) NEGATIVE (Negative) RSV RNA Qual (PCR) NEGATIVE (Negative) SARS-CoV-2 RNA (RT-PCR) NEGATIVE (Negative) Independent Interpretation I performed an independent interpretation of an: EKG, Plain X-Ray and CT Scan Interpretation: My interpretation is in agreement with the radiologist's impression of these imaging studies. - EXAMINATION: CT HEAD WITHOUT CONTRAST CLINICAL INFORMATION: Fall head strike COMPARISON: None TECHNIQUE: Contiguous axial imaging was performed from the skull base to vertex without intravenous administration of contrast. This CT examination was performed using dose optimization techniques as appropriate, variously including the following: *Automated exposure control *Adjustment of mA and/or kV according to patient size (this includes techniques or standardized protocols for targeted exams where dose is matched to indication/reason for exam; i.e. extremities or head) *Use of iterative reconstruction technique DLP: 684.97 mGy-cm FINDINGS: Redemonstrated left frontal approach neurostimulator terminating at the level of the left basal ganglia with streak artifact, stable. Chronic white matter small vessel ischemic changes. There is no evidence of acute intracranial hemorrhage or territorial infarction. No abnormal mass effect or midline shift is seen. Bustos to white matter differentiation is well preserved. No extra-axial fluid collections are identified. The ventricles are normal in size. There is no abnormal attenuation within the brain parenchyma. The osseous structures and soft tissues are normal. The mastoid air cells and visualized portions of the paranasal sinuses are well aerated. CT/CT cervical spine wo IV con IMPRESSION: 1. No acute intracranial pathology. 2. Redemonstrated left frontal approach neurostimulator terminating at the level of the left basal ganglia with streak artifact, stable. EXAMINATION: Noncontrast CT scan of the cervical spine. INDICATION: Fall head strike COMPARISON: None. TECHNIQUE: Helical, multidetector axial images were obtained from the occiput to the upper thorax. Coronal and sagittal reformats of the cervical spine were provided for interpretation. DLP: 304.2 mGy-cm FINDINGS: Incomplete closure of the right anterior C1 ring. Straightening the normal cervical curvature. Multilevel degenerative changes. No acute fractures or dislocations of the cervical spine are seen. Anatomic alignment and positioning of the vertebral bodies and posterior elements is noted. The atlantoaxial joint and craniovertebral articulations are normal without evidence of subluxation. There is no prevertebral soft tissue swelling. The thyroid gland and visualized portions of the lung apices and mediastinum are unremarkable. Left-sided nerve stimulator electrode partially visualized. IMPRESSION: 1. No acute visible fracture or dislocation. 2. Straightening the normal cervical curvature. 3. Multilevel degenerative changes. Dictated By: Cori Berry MD Signed By: Electronically signed by Cori Berry MD 09/20/23 1347 - EXAMINATION: XR CHEST CLINICAL INFORMATION: Pain, status post fall COMPARISON: None available. TECHNIQUE: Frontal view of the chest was obtained. FINDINGS: Lordotic view. Slightly rotated positioning. Cardiomediastinal silhouette is within normal limits. Radiopaque stimulator device projected over the left upper chest. No focal consolidation, effusion, pulmonary edema. No pneumothorax is seen. No acute displaced rib fracture is seen. XR/XR chest 1V IMPRESSION: No acute pulmonary process. Dictated By: Wil Cespedes MD Signed By: Electronically signed by Wil Cespedes MD 09/20/23 1430 - EXAMINATION: X-ray left shoulder X-ray left humerus CLINICAL INFORMATION: Pain, status post fall COMPARISON: None TECHNIQUE: Shoulder 3 views. Humerus 3 views. FINDINGS: Left shoulder: Radiopaque device/neurostimulator device projecting over the the shoulder/proximal humerus on the frontal view. In the visualized bones, no evidence of acute fracture or dislocation. 2 x 1.9 cm calcification projected superior to the greater tuberosity, could reflect calcific tendinitis or bursitis. Mild acromioclavicular arthritis. Left humerus: No evidence of acute humeral fracture or malalignment. Calcification superior to the greater tuberosity is redemonstrated. Elbow joint articulation is maintained. XR/XR humerus LT IMPRESSION: Left shoulder: No evidence of acute fracture or dislocation. 2 x 1.9 cm calcification superior to the greater tuberosity could reflect calcific tendinitis or bursitis. Left humerus: No evidence of acute fracture or malalignment. Dictated By: Wil Cespedes MD Signed By: Electronically signed by Wil Cespedes MD 09/20/23 1431 - Vent. Rate: 065 BPM Atrial Rate: 065 BPM P-R Int: 114 ms QRS Dur: 086 ms QT Int: 382 ms P-R-T Axes: 014 045 022 degrees QTc Int: 397 ms Normal sinus rhythm Septal infarct (cited on or before 20-SEP-2023) DD/ 1154 Radiology Impression Discussion of test interpretation with radiology: I have reviewed the radiologist's reading. Independent Historian Clinical information obtained from an independent historian. History obtained from or confirmed by: EMS (EMS provided additional history and confirmed the history provided by the patient.) Critical Care Time Critical Care Time Critical Care Time: Yes Total Critical Care Time: 38 Attestation: I spent 38 minutes of Critical Care Time with this patient. This does not include time spent on separately reported billable procedures. Discharge Plan Discharge Clinical Impression: Fall, Acute shoulder pain Patient Disposition: Still a Patient Prescriptions: No Action nicotine (polacrilex) 4 mg Lozenge 4 mg buccal Q2H PRN (Reason: Nicotine Cravings) 30 Days Qty: 108 1RF ferrous sulfate 324 mg (65 mg iron) Tablet,Delayed Release (Dr/Ec) 324 mg PO DAILY 30 Days Qty: 30 0RF atorvastatin 40 mg Tablet 40 mg PO DAILY 30 Days Qty: 30 0RF buspirone 10 mg Tablet 10 mg PO BID@0900,2000 30 Days Qty: 60 0RF haloperidol 5 mg Tablet 5 mg PO TID PRN (Reason: agitation) 30 Days Qty: 3 0RF trazodone 50 mg Tablet 50 mg PO BEDTIME PRN (Reason: Insomnia) 30 Days Qty: 30 0RF ibuprofen 600 mg Tablet 600 mg PO Q8H PRN (Reason: cramping) Qty: 0 0RF sertraline 50 mg Tablet 150 mg PO DAILY 30 Days Qty: 90 0RF docusate sodium 100 mg Capsule 100 mg PO DAILY@1999 30 Days Qty: 30 0RF multivitamin Tablet 1 tab PO DAILY 30 Days Qty: 30 0RF sennosides [senna] 8.6 mg tablet 8.6 mg PO DAILY PRN (Reason: Constipation) 30 Days Qty: 30 0RF chlorpromazine 100 mg tablet 200 mg PO BEDTIME 30 Days Qty: 60 0RF chlorpromazine 100 mg tablet 100 mg PO BID@0800,1600 30 Days Qty: 60 0RF aspirin 81 mg tablet,delayed release (DR/EC) 81 mg PO DAILY 30 Days Qty: 30 0RF pantoprazole 40 mg tablet,delayed release (DR/EC) 1 tab PO BEDTIME 30 Days Qty: 30 0RF metformin 1,000 mg tablet 1 tab PO BID 30 Days Qty: 60 0RF fluticasone propionate 50 mcg/actuation spray,suspension 1 - 2 spray intranasal DAILY PRN (Reason: Dyspnea) 30 Days Qty: 1 0RF Vraylar 4.5 mg capsule 4.5 mg PO BEDTIME 30 Days Qty: 30 0RF hydroxyzine HCl 25 mg Tablet 25 mg PO DAILY PRN (Reason: Anxiety) 30 Days Qty: 30 0RF methylphenidate HCl 10 mg tablet 10 mg PO BID 30 Days Qty: 60 0RF Rx Instructions: take at 0800 and 1300. Partial Fill upon patient request. methylphenidate HCl 5 mg tablet 5 mg PO DAILY 30 Days Qty: 30 0RF Rx Instructions: take at 1600. Partial Fill upon patient request. Print Language: Cook Islander
--- NOTE | 2023-09-20 11:10 | ECG_ITS ---
Test Reason : FALL Blood Pressure : / mmHG Vent. Rate : 065 BPM Atrial Rate : 065 BPM P-R Int : 114 ms QRS Dur : 086 ms QT Int : 382 ms P-R-T Axes : 014 045 022 degrees QTc Int : 397 ms Normal sinus rhythm Artifact When compared with ECG of 26-APR-2022 12:04, Poor data quality in current ECG precludes serial comparison Referred By: Marlen Carrion Electronically Signed By:Christopher Newell
[2023-09-20 11:44] VITALS: BMI 26.4
[2023-09-20 11:52] VITALS: BP 113/70; PULSE 67; RESP 18; TEMP 36.6; O2SAT 96
[2023-09-20 13:28] LABS: Troponin-I High Sensitivity < 2.7 ng/L (<3.5-17.0)
[2023-09-20 13:56] LABS: Influenza A PCR NEGATIVE (Negative); Influenza B PCR NEGATIVE (Negative); Resp Syncy Virus RNA Qual PCR NEGATIVE (Negative); SARS COV2 PCR INHOUSE NEGATIVE (Negative)
[2023-09-20 14:37] LABS: Alanine Aminotransferase 13 U/L (0-31); Albumin Level 3.9 g/dL (3.5-5.0); Alkaline Phosphatase 86 U/L (39-117); Anion Gap 18 (12-20); Aspartate Amino Transferase 21 U/L (5-31); Bilirubin Total 0.2 mg/dL (0.0-1.0); Blood Urea Nitrogen 8 mg/dL (9-16); Calcium 9.6 mg/dL (8.4-10.2); Carbon Dioxide 21 mmol/L (22-29); Chloride 109 mmol/L (96-108); Creatinine Clr Calc Pharmacy 100.9; Estimated Glomerular Filt Rate > 60; Glucose Random 140 mg/dL (60-115); Magnesium 1.9 mg/dL (1.6-2.6); Potassium 4.2 mmol/L (3.3-5.1); Sodium 144 mmol/L (135-145); Total Protein 6.6 g/dL (6.5-8.0)
[2023-09-20 15:44] LABS: Basophils Absolute Auto 0.1 X10*3/uL (0.0-0.2); Basophils Percent Auto 0.7 % (0-2); Eosinophils Absolute Auto 0.2 X10*3/uL (0.0-0.4); Eosinophils Percent Auto 2.7 % (0-4); Hematocrit 38.2 % (37.0-47.0); Hemoglobin 12.1 g/dl (12.0-16.0); Imm Gran Abs Auto 0.02 X10*3/uL (0.00-0.03); Imm Gran Pct Auto 0.3 % (0.0-0.4); Lymphocytes Absolute Auto 1.7 X10*3/uL (1.2-4.9); Lymphocytes Percent Auto 24.3 % (20-40); Mean Corpuscular HGB Conc 31.7 g/dl (31.0-35.0); Mean Corpuscular Hemoglobin 25.5 pg (27.0-33.0); Mean Corpuscular Volume 80.4 fL (80.0-98.0); Monocytes Absolute Auto 0.7 X10*3/uL (0.1-1.2); Monocytes Percent Auto 9.5 % (2-11); Neutrophils Absolute Auto 4.5 x10*3/uL (2.0-8.3); Neutrophils Percent Auto 62.5 % (45-73); Platelet Count 207 X10*3/uL (160-400); Red Blood Count 4.75 X10*6/uL (4.20-5.50); Red Cell Distribution Width 15.4 % (11.0-16.0); White Blood Count 7.1 X10*3/uL (4.8-10.8)
[2023-09-20 15:50] LABS: MANUAL DIFF FLAG NO
[2023-09-20 15:52] VITALS: BP 94/70; PULSE 64; RESP 18; TEMP 36.9; O2SAT 98
[2023-09-20 17:36] VITALS: BP 101/53; PULSE 70; RESP 14; TEMP 36.4; O2SAT 97
--- NOTE | 2023-09-20 17:41 | PC.NURSE ---
report given to Lilli ODONNELL at [facility] for patient return
[2023-09-20 19:27] VITALS: BP 101/53; PULSE 70; RESP 14; TEMP 36.4; O2SAT 97
== END 2023-09-20 19:28 | disposition home or self-care (01) ==
PROVIDERS: Physician Assistant Medical; Emergency Provider Emergency Medicine
DX: M79.622 Pain in left upper arm (principal); S49.92XA Unspecified injury of left shoulder and upper arm, initial encounter; W18.2XXA Fall in (into) shower or empty bathtub, initial encounter; Y93.9 Activity, unspecified; Y92.9 Unspecified place or not applicable; Y99.9 Unspecified external cause status; Z03.818 Encounter for observation for suspected exposure to other biological agents ruled out; R42 Dizziness and giddiness
CPT/HCPCS: 0241U; 36415; 70450; 71045; 72125; 73030; 73060; 80053; 83735; 84484; 85025; 93005; 99284

== ENCOUNTER → 2023-09-20 11:10 | Outpatient (BNV) | payer OTHER, SELFPAY | PROVIDERS: Emergency Provider Emergency Medicine; Visit Provider Internal Medicine Cardiovascular Disease | DX: R42 Dizziness and giddiness (principal) | CPT/HCPCS: 93010 ==

== ENCOUNTER 2024-11-06 20:45 | Emergency (ER) | payer OTHER, SELFPAY ==
--- NOTE | ~2024-11-06 | CT_ITS ---
CLINICAL HISTORY: left sided abd pain CT abdomen and pelvis without contrast Comparison: None provided Findings: Mild bibasilar atelectasis and motion artifacts. Mild fat deposition of the liver. The adrenal glands are normal. Splenomegaly with spleen measuring 13.2 cm. Gallbladder and pancreas are unremarkable for noncontrast CT. No hydronephrosis. No obstructing stone of either kidney or either imaged ureter. Small mesenteric and periaortic lymph nodes are nonspecific and likely reactive. No small bowel obstruction. Severe stool burden is present, including the cecum. Imaged appendix is within normal limits. Mild wall thickening of the distal large intestine is nonspecific and may be related underdistention. The uterus is anteverted. No adnexal soft tissue mass by CT. Mild-moderate distention of the urinary bladder is nonspecific. Vascular calcifications noted. Degenerative changes include facet arthropathy greater than expected for age, particularly in the lumbar spine, left worse than right. Lucency of the left L3 pedicle likely due to small hemangioma appears non aggressive. Mild osteoarthritis of the hips. Subcutaneous edema is noted. Left ventral subcutaneous edema likely from additional injection IMPRESSION: 1. Severe stool burden. No small bowel obstruction. 2. No obstructing stone in either kidney or either ureter. 3. Degenerative changes include facet arthropathy, greater than expected for age. This document has been electronically signed by: Luis Fernando Harvey MD on 11/07/2024 02:25:28
[2024-11-06 20:58] VITALS: BP 130/82; PULSE 107; O2SAT 94
[2024-11-06 21:11] VITALS: BP 138/77; PULSE 98; RESP 20; TEMP 36.6; O2SAT 95; BMI 29.7
[2024-11-06 23:42] VITALS: BP 126/73; PULSE 91; RESP 16; TEMP 36.8; O2SAT 97
--- NOTE | 2024-11-07 00:34 | ED_ITS ---
HPI - Medical Clearance General Chief complaint: Medical Clearance Stated complaint: eval after being missing from [facility] Time Seen by Provider: 11/06/24 23:54 History of Present Illness HPI Narrative: Patient is a 43-year-old female escape from [facility] today. Patient was later found on [address] in [place]. Patient states that she was DC from facility. She is oriented to self. Not to year. Patient had an episode of vomiting. Had some abdominal pain on the left side. Feels weak. Has a history of schizoaffective disorder. History of PTSD. Denies recreational drug use. Related Information Previous Rx's ?Medication ?Instructions ?Recorded aspirin 81 mg tablet,delayed 81 mg PO DAILY 30 days #3 0 tabs 05/09/22 release atorvastatin 40 mg tablet 40 mg PO DAILY 30 days #30 t abs 05/09/22 buspirone 10 mg tablet 10 mg PO BID@0900,1999 30 da ys #60 05/09/22 tabs cariprazine 4.5 mg capsule 4.5 mg PO BEDTIME 30 days # 30 caps 05/09/22 (Vraylar) chlorpromazine 100 mg tablet 100 mg PO BID@0800,1600 3 0 days 05/09/22 #60 tabs chlorpromazine 100 mg tablet 200 mg (2 x 100 mg) PO BE DTIME 30 05/09/22 days #60 tabs docusate sodium 100 mg capsule 100 mg PO DAILY@1999 30 days #30 05/09/22 caps ferrous sulfate 324 mg (65 mg 324 mg PO DAILY 30 days #30 tabs 05/09/22 iron) tablet,delayed release fluticasone propionate 50 1 - 2 spray intranasal DAILY PRN 05/09/22 mcg/actuation nasal Dyspnea 30 days #1 inhaler spray,suspension haloperidol 5 mg tablet 5 mg PO TID PRN agitation 30 days 05/09/22 #3 tabs ibuprofen 600 mg tablet 600 mg PO Q8H PRN cramping # 0 tabs 05/09/22 metformin 1,000 mg tablet 1 tab PO BID 30 days #60 tab s 05/09/22 multivitamin 1 tab PO DAILY 30 days #30 t abs 05/09/22 nicotine (polacrilex) 4 mg buccal 4 mg buccal Q2H PRN Nicotine 01/10/23 lozenge Cravings 30 days #108 ea pantoprazole 40 mg tablet,delayed 1 tab PO BEDTIME 30 days #30 tabs 05/09/22 release sennosides 8.6 mg tablet (senna) 8.6 mg PO DAILY PRN C onstipation 05/09/22 30 days #30 tabs sertraline 50 mg tablet 150 mg (3 x 50 mg) PO DAILY 30 05/09/22 days #90 tabs trazodone 50 mg tablet 50 mg PO BEDTIME PRN Insomni a 30 05/09/22 days #30 tabs hydroxyzine HCl 25 mg tablet 25 mg PO DAILY PRN Anxiet y 30 days 05/10/22 #30 tabs methylphenidate HCl 10 mg tablet 10 mg PO BID ADHD 30 days #60 tabs 05/10/22 methylphenidate HCl 5 mg tablet 5 mg PO DAILY 30 days #30 tabs 05/10/22 polyethylene glycol 3350 17 17 g PO DAILY #119 grams 0 11/07/24 gram/dose oral powder (Miralax) Allergies Allergy/AdvReac Type Severity Reaction Status Date / Time amoxicillin (Amoxicillin) Allergy Mild HIVES Verified 11/06/24 21:14 baclofen (Baclofen) Allergy Unknown UNKNOWN Verified 11/06/24 21:14 bupropion (From Wellbutrin) Allergy Unknown UNKNOWN Verified 11/06/24 21:14 diphenhydramine (From Allergy Unknown UNKNOWN Verified 11/06/24 21:14 Benadryl) divalproex sodium (From Allergy Unknown UNKNOWN Verified 11/06/24 21:14 Depakote) fluoxetine (From Prozac) Allergy Unknown UNKNOWN Verified 11/06/24 21:14 Penicillins Allergy Unknown UNKNOWN Verified 11/06/24 21:14 nicotine patch Allergy Intermediate rash Uncoded 11/06/24 21:14 Review of Systems 2 Review of Systems: Positive abdominal pain on the left side Positive nausea Yes all other systems are reviewed and are negative PMFSH Past Medical History Attestation statement: The following information was validated with the patient. Medical History Unwitnessed fall Diabetes Surgical History Status post VNS (vagus nerve stimulator) placement Social History Social History Household Members: Other Household Members Other:: 4 roommates and staff Housing: Other Housing Other:: [facility] Do you presently have visiting nurse or other home services: No Alcohol intake: unknown Patient Tobacco Use Status: Current everyday Tobacco user Tobacco use type: Cigarette Cigarette Packs Per Day: 1 Cigarettes Per Day: 20 Years Smoked: 33 years Smoked in Last 30 Days: Yes e-Cigarette/Vaping Use: Former Use Second Hand Smoke Exposure: No Use of substances other than those prescribed or required for medical reasons: No Substance Use Type: Marijuana Advance Directives: No Advance Directives Information Provided: No service: No Sexual orientation: Decline to Answer Physical Exam 2 Vital Signs: Vital Signs: Last Vital Signs Temp 98.3 F 11/06/24 23:42 Pulse 91 11/06/24 23:42 Resp 16 11/06/24 23:42 BP 126/73 11/06/24 23:42 Pulse Ox 97 11/06/24 23:42 O2 Del Method Room Air 11/06/24 23:42 BMI result Body Mass Index 29.7 Appearance: Alert. Oriented X3. No acute distress. Eyes: Pupils equal, round and reactive to light. ENT: Pharynx normal. Neck: Normal inspection. Neck supple. No lymph nodes noted. No crepitus CVS: Normal heart rate and rhythm. Pulses normal. Normal S1 and S2 Respiratory: No respiratory distress. Breath sounds normal. No Wheezing. No rales Abdomen: Soft and nontender. No rigidity. No distention. good BS x4 Skin: Skin warm and dry. Normal skin color. Normal skin turgor. Extremities: No lower extremity edema. Neurovascular intact to all extremities. No Lacerations. No Rash Neuro: Oriented X 3. No motor deficit. No sensory deficit. Moving all extermities. No slurred speech Medications Administered Discontinued Medications Generic Name Dose Route Start Last Admin Trade Name Freq PRN Reason Stop Dose Admin Sodium Chloride 1,000 mls @ 999 mls/hr 11/07/24 00:45 11/07/24 01:12 Ns IV 11/07/24 01:45 999 mls/hr .Q1H1M MELANIE Administration Ondansetron HCl 4 mg 11/07/24 00:33 11/07/24 01:14 Ondansetron Hcl 4 Mg/2 Ml Vial IVPUSH 11/07/24 00:34 4 mg ONCE ONE Administration Medical Decision Making Medical Decision Making [facility] Narrative: 43 years old presents today with nausea. Patient escape from [facility]. Has a history of PTSD schizoaffective disorder. Patient's workup showed a slight white count of 13.5. Slight shift. Glucose was 190. LFTs are normal. Lipase is normal there is no evidence of pancreatitis alcohol is negative no alcohol intoxication test was negative no related issues. CT scan of the abdomen pelvis was done. Currently awaiting the final results. CT report per Radiology shows constipation. Will discharge patient home. Differential Diagnosis Differential Diagnoses: The differential diagnosis associated with the presentation includes Obstruction, polysubstance abuse Admission/Observation Consideration of admission/observation: Escalation of care including admission/observation considered Lab Data [facility] Lab Attestation statement: I reviewed the patient's lab results. 11/07/24 01:04 11/07/24 01:05 Labs: Lab Results 11/07/24 11/07/24 Range/Units 01:04 01:05 WBC 13.5 H (4.8-10.8) X10*3/uL RBC 4.93 (4.20-5.50) X10*6/uL Hgb 12.8 (12.0-16.0) g/dl Hct 38.5 (37.0-47.0) % MCV 78.1 L (80.0-98.0) fL MCH 26.0 L (27.0-33.0) pg MCHC 33.2 (31.0-35.0) g/dl RDW 15.9 (11.0-16.0) % Plt Count 218 (160-400) X10*3/uL MPV 11.1 (9.4-12.3) fL Immature Gran % (Auto) 0.4 (0.0-0.4) % Neut % (Auto) 79.4 H (45-73) % Lymph % (Auto) 12.9 L (20-40) % Cowley % (Auto) 6.8 (2-11) % Eos % (Auto) 0.2 (0-4) % Baso % (Auto) 0.3 (0-2) % Lymph # (Auto) 1.7 (1.2-4.9) X10*3/uL Cowley # (Auto) 0.9 (0.1-1.2) X10*3/uL Eos # (Auto) 0.0 (0.0-0.4) X10*3/uL Baso # (Auto) 0.0 (0.0-0.2) X10*3/uL Abs Immat Gran (auto) 0.05 H (0.00-0.03) X10*3/uL Absolute Neuts (auto) 10.7 H (2.0-8.3) x10*3/uL Absolute Nucleated RBC 0.000 (0.0-0.012) X10*3/uL Nucleated RBC % (auto) 0.0 (0.0-0.2) /100WBC Sodium 138 (135-145) mmol/L Potassium 4.6 (3.3-5.1) mmol/L Chloride 103 (96-108) mmol/L Carbon Dioxide 23 (22-29) mmol/L Anion Gap 17 (12-20) BUN 12 (9-16) mg/dL Creatinine 0.57 (0.5-1.4) mg/dL Estim Creat Clear Calc 119.5 Estimated GFR > 60 Random Glucose 193 H (60-115) mg/dL Calcium 9.1 (8.4-10.2) mg/dL Total Bilirubin 0.2 (0.0-1.0) mg/dL Direct Bilirubin < 0.2 (0.0-0.5) mg/dL AST 45 H (5-31) U/L ALT 20 (0-31) U/L Alkaline Phosphatase 111 (39-117) U/L Total Protein 6.9 (6.5-8.0) g/dL Albumin 4.3 (3.5-5.0) g/dL Lipase 25 (8-78) U/L Beta HCG, Quant < 2 mIU/mL Ethyl Alcohol < 10 mg/dL Discharge Plan Discharge Clinical Impression: Nausea, Schizoaffective disorder, Constipation Patient Disposition: Home, Self-Care Instructions: Schizoaffective Disorder (ED), Acute Nausea and Vomiting (ED) Prescriptions: New polyethylene glycol 3350 [Miralax] 17 gram/dose powder 17 g PO DAILY Qty: 119 0RF No Action nicotine (polacrilex) 4 mg Lozenge 4 mg buccal Q2H PRN (Reason: Nicotine Cravings) 30 Days Qty: 108 1RF ferrous sulfate 324 mg (65 mg iron) Tablet,Delayed Release (Dr/Ec) 324 mg PO DAILY 30 Days Qty: 30 0RF atorvastatin 40 mg Tablet 40 mg PO DAILY 30 Days Qty: 30 0RF buspirone 10 mg Tablet 10 mg PO BID@0900,2000 30 Days Qty: 60 0RF haloperidol 5 mg Tablet 5 mg PO TID PRN (Reason: agitation) 30 Days Qty: 3 0RF trazodone 50 mg Tablet 50 mg PO BEDTIME PRN (Reason: Insomnia) 30 Days Qty: 30 0RF ibuprofen 600 mg Tablet 600 mg PO Q8H PRN (Reason: cramping) Qty: 0 0RF sertraline 50 mg Tablet 150 mg PO DAILY 30 Days Qty: 90 0RF docusate sodium 100 mg Capsule 100 mg PO DAILY@1999 30 Days Qty: 30 0RF multivitamin Tablet 1 tab PO DAILY 30 Days Qty: 30 0RF sennosides [senna] 8.6 mg tablet 8.6 mg PO DAILY PRN (Reason: Constipation) 30 Days Qty: 30 0RF chlorpromazine 100 mg tablet 200 mg PO BEDTIME 30 Days Qty: 60 0RF chlorpromazine 100 mg tablet 100 mg PO BID@0800,1600 30 Days Qty: 60 0RF aspirin 81 mg tablet,delayed release (DR/EC) 81 mg PO DAILY 30 Days Qty: 30 0RF pantoprazole 40 mg tablet,delayed release (DR/EC) 1 tab PO BEDTIME 30 Days Qty: 30 0RF metformin 1,000 mg tablet 1 tab PO BID 30 Days Qty: 60 0RF fluticasone propionate 50 mcg/actuation spray,suspension 1 - 2 spray intranasal DAILY PRN (Reason: Dyspnea) 30 Days Qty: 1 0RF Vraylar 4.5 mg capsule 4.5 mg PO BEDTIME 30 Days Qty: 30 0RF hydroxyzine HCl 25 mg Tablet 25 mg PO DAILY PRN (Reason: Anxiety) 30 Days Qty: 30 0RF methylphenidate HCl 10 mg tablet 10 mg PO BID 30 Days Qty: 60 0RF Rx Instructions: take at 0800 and 1300. Partial Fill upon patient request. methylphenidate HCl 5 mg tablet 5 mg PO DAILY 30 Days Qty: 30 0RF Rx Instructions: take at 1600. Partial Fill upon patient request. Referrals: Physician,Unknown J [Primary Care Provider, Medical] - 3 days Print Language: Armenian
[2024-11-07 01:09] LABS: Hematocrit 38.5 % (37.0-47.0); Hemoglobin 12.8 g/dl (12.0-16.0); Imm Gran Abs Auto 0.05 X10*3/uL (0.00-0.03); Imm Gran Pct Auto 0.4 % (0.0-0.4); Lymphocytes Absolute Auto 1.7 X10*3/uL (1.2-4.9); MANUAL DIFF FLAG NO; Mean Corpuscular HGB Conc 33.2 g/dl (31.0-35.0); Mean Corpuscular Hemoglobin 26.0 pg (27.0-33.0); Mean Corpuscular Volume 78.1 fL (80.0-98.0); NRBC Abs Auto 0.000 X10*3/uL (0.0-0.012); NRBC Pct Auto 0.0 /100WBC (0.0-0.2); Platelet Count 218 X10*3/uL (160-400); Red Blood Count 4.93 X10*6/uL (4.20-5.50); White Blood Count 13.5 X10*3/uL (4.8-10.8)
[2024-11-07 01:47] LABS: Alanine Aminotransferase 20 U/L (0-31); Albumin Level 4.3 g/dL (3.5-5.0); Alkaline Phosphatase 111 U/L (39-117); Anion Gap 17 (12-20); Aspartate Amino Transferase 45 U/L (5-31); Blood Urea Nitrogen 12 mg/dL (9-16); Calcium 9.1 mg/dL (8.4-10.2); Carbon Dioxide 23 mmol/L (22-29); Chloride 103 mmol/L (96-108); Creatinine Clr Calc Pharmacy 119.5; Estimated Glomerular Filt Rate > 60; Lipase 25 U/L (8-78); Potassium 4.6 mmol/L (3.3-5.1); Sodium 138 mmol/L (135-145); Total Protein 6.9 g/dL (6.5-8.0)
--- NOTE | 2024-11-07 03:01 | PC.NURSE ---
callled and spoke to case management coordinator Kathi at [phone]. Kathi gave number [phone] for long term and t/w spoke with Juwan RN and explained discharge and pt is ready to be picked up. Juwan will work on transport and someone will be available to pick her up shortly
[2024-11-07 04:19] VITALS: BP 126/73; PULSE 91; RESP 16; TEMP 36.8; O2SAT 97
== END 2024-11-07 04:10 | disposition home or self-care (01) ==
PROVIDERS: Emergency Provider Emergency Medicine Emergency Medical Services
DX: F25.9 Schizoaffective disorder, unspecified (principal); K59.00 Constipation, unspecified; R11.2 Nausea with vomiting, unspecified; R10.9 Unspecified abdominal pain; F43.10 Post-traumatic stress disorder, unspecified; F17.210 Nicotine dependence, cigarettes, uncomplicated; Z79.899 Other long term (current) drug therapy; Z03.818 Encounter for observation for suspected exposure to other biological agents ruled out
CPT/HCPCS: 36415; 74176; 80048; 80076; 80307; 83690; 84702; 85025; 96361; 96374; 99284; J2405

== ENCOUNTER → 2024-11-07 00:33 | Outpatient (BNV) | payer OTHER, SELFPAY | PROVIDERS: Emergency Provider Emergency Medicine Emergency Medical Services; Visit Provider Radiology Neuroradiology | DX: R10.12 Left upper quadrant pain (principal) | CPT/HCPCS: 74176 ==